=== PATIENT | female | born 1995 | race Caucasian/White ===

== ENCOUNTER 2016-06-28 09:20 | Day surgery (SDC) | payer OTHER ==
[2016-06-28] MEDS ORDERED: LACTATED RINGERS 1,000 ML IV ONE ×2 (09:50→11:02)
[2016-06-28] MEDS ORDERED: BUPIVACAINE 0.5% PF 30 ML VIAL INFIL ONE ×2 (10:24)
[2016-06-28] MEDS ORDERED: DEXAMETHASONE 4 MG/ML VIAL IVP ONE (10:25)
[2016-06-28] MEDS ORDERED: MIDAZOLAM 2 MG/2 ML VIAL IVP ONE (10:25)
[2016-06-28] MEDS ORDERED: KETOROLAC 30 MG/ML VIAL IVP ONE (10:25)
[2016-06-28] MEDS ORDERED: LIDOCAINE-MPF 2% 5 ML VIAL IM ONE (10:25)
[2016-06-28] MEDS ORDERED: PROPOFOL 200 MG/20 ML VIAL IVP ONE (10:25)
[2016-06-28] MEDS ORDERED: fentaNYL 100 MCG/2 ML VIAL IVP ONE (10:25)
[2016-06-28] MEDS ORDERED: ONDANSETRON 4 MG/2 ML VIAL IVP ONE (10:25)
== END 2016-06-28 09:21 | disposition home or self-care (01) ==
PROC: 0XP70YZ Removal of Other Device from Left Upper Extremity, Open Approach (ICD-10-PCS; principal; 2016-06-28 11:00)
DX: Z30.8 Encounter for other contraceptive management (principal); Z87.891 Personal history of nicotine dependence; Z82.49 Family history of ischemic heart disease and other diseases of the circulatory system
CPT/HCPCS: 11982; 81025; J7120

== ENCOUNTER 2016-12-21 15:59 | Emergency (ER) | payer SELFPAY ==
[2016-12-21 16:11] VITALS: BP 143/89
[2016-12-21] MEDS ORDERED: oxyCOD/ACETAMIN 5 MG/325 MG TABLET PO STA (17:09)
[2016-12-21] MEDS ORDERED: ACYCLOVIR 200 MG CAPSULE PO STA (17:09)
[2016-12-21] MEDS ORDERED: ACYCLOVIR 200 MG CAPSULE PO ONE (17:15)
[2016-12-21] MEDS ORDERED: oxyCOD/ACETAMIN 5 MG/325 MG TABLET PO ONE (17:15)
--- NOTE | 2016-12-21 17:54 | ED Physician Documentation ---
History of Present Illness - Stated complaint Stated Complaint: LT SHOULDER PX - Chief complaint Chief Complaint: Ext Problem - History obtained from History obtained from: Patient - Additonal information Additional information: The patient is a 21-year-old female who presents with pain posterior aspect of her left shoulder, across the back from her spine, to the lateral chest wall. She denies any traumatic injury. She denies chest pain, cough, or shortness of breath. She is right-hand dominant. She denies any history of similar symptoms in the past. Review of Systems Constitutional: denies: Fever Nose: denies: Congestion Throat: denies: Sore throat Cardiac: denies: Chest pain / pressure, Palpitations Respiratory: denies: Dyspnea, Cough GI: denies: Abdominal Pain, Nausea, Vomiting : denies: Dysuria Skin: denies: Rash Musculoskeletal: reports: Back pain (At the base of the left scapula.). denies : Neck pain Neurologic: denies: Focal weakness, Numbness, Headache PD PAST MEDICAL HISTORY - Past Medical History Past Medical History: Yes Respiratory: None Endocrine/Autoimmune: None GI: None : None HEENT: Other Psych: Depression, Anxiety Musculoskeletal: None - Past Surgical History Past Surgical History: Yes General: Other HEENT: Other - Present Medications Home Medications: Ambulatory Orders Medication Instructions Recorded Confirmed Sertraline [Zoloft] 50 mg PO DAILY 12/10/15 12/21/16 Ibuprofen 800 mg PO PRN PRN 06/26/16 12/21/16 Acyclovir 200 mg PO 5XD #50 capsule 12/21/16 Clonazepam 1 tab PO TID 12/21/16 12/21/16 oxyCODONE/ACET 5/325 [Percocet 5 1 - 2 tab PO Q4-6H PRN #20 tablet 12/21/16 mg/325 mg] - Allergies Allergies/Adverse Reactions: Allergies Allergy/AdvReac Type Severity Reaction Status Date / Time Penicillins Allergy Mild Unknown Verified 12/21/16 16:11 Sulfa (Sulfonamide Allergy Mild Unknown Verified 12/21/16 16:11 Antibiotics) buspirone Allergy Unknown Verified 12/21/16 16:11 cephalexin monohydrate * Allergy Hives Verified 12/21/16 16:11 [From Keflex] - Social History Does the pt smoke?: No Smoking Status: Former smoker Does the pt drink ETOH?: Yes Does the pt have substance abuse?: No - Immunizations Immunizations are current?: Yes - POLST Patient has POLST: No PD ED PE NORMAL - Vitals Vital signs reviewed: Yes (Borderline hypertension.) - General General: Alert and oriented X 3, Well developed/nourished - HEENT HEENT: Atraumatic, EOMI, Moist mucous membranes, Pharynx benign - Neck Neck: Supple, no meningeal sign, No adenopathy, No JVD - Cardiac Cardiac: RRR, No murmur - Respiratory Respiratory: No respiratory distress, Clear bilaterally - Abdomen Abdomen: Soft, Non tender - Back Back: No CVA TTP, No spinal TTP, Other (There is tenderness to palpation in the left mid thoracic dermatome at the base of the left scapula, in a dermatomal pattern from the spine to the lateral thorax. No rash or ecchymosis is detected.) - Derm Derm: No rash - Extremities Extremities: No deformity, Other (Full range of motion of the left shoulder. There is tenderness with superficial palpation as described above. There is no bony tenderness to palpation.) - Neuro Neuro: Alert and oriented X 3, No motor deficit, No sensory deficit Results - Vitals Vitals: Vital Signs - 24 hr 12/21/16 16:08 Temperature 36.3 C L Heart Rate 82 Respiratory 18 Rate Blood Pressure 143/89 H O2 Saturation 99 Oxygen O2 Source Room air PD MEDICAL DECISION MAKING - ED course Complexity details: considered differential, d/w patient, d/w family ED course: The patient's presentation is most suggestive of shingles, however she does not have any rash at this time. Neuralgia is a possibility. Her exam is unusual for muscle strain, and there is no evidence of bony injury. Her symptoms are not suggestive of pulmonary etiology. Treatment in the emergency department included administration of acyclovir 200 mg orally and Percocet 1 tablet orally. She is being discharged with prescriptions for both. I discussed with her and her male pharmacy intake coordinator the likely diagnosis and expected course of illness, symptomatic treatment and outpatient follow-up, as well as potentially worrisome signs or symptoms that should prompt reevaluation in the emergency department. Departure - Departure Disposition: 01 Home, Self Care Clinical Impression: Pain of upper extremity Qualifiers: Laterality: left Qualified Code(s): M79.602 - Pain in left arm Shingles Qualifiers: Herpes zoster complications: unspecified herpes zoster complication Qualified Code(s): B02.8 - Zoster with other complications Condition: Stable Instructions: ED Acute Pain [facility], ED Shingles Follow-Up: Itz Osullivan MD [Primary Care Provider] - Prescriptions: Acyclovir 200 mg PO 5XD #50 capsule oxyCODONE/ACET 5/325 [Percocet 5 mg/325 mg] 1 - 2 tab PO Q4-6H PRN #20 tablet PRN Reason: Pain Comments: Take acyclovir 5 times daily as prescribed. You can use Percocet as prescribed if needed for pain. Follow-up with your primary physician within 1 week. Call to schedule appointment. Return to the emergency department if you develop increasing pain despite the pain medication, or otherwise worsening symptoms. Discharge Date/Time: 12/21/16 18:00
== END 2016-12-21 18:00 | disposition home or self-care (01) ==
LOC: ED 15:59
DX: B02.9 Zoster without complications (principal); M25.512 Pain in left shoulder; Z87.891 Personal history of nicotine dependence
CPT/HCPCS: 99283; A9270

== ENCOUNTER 2017-01-06 18:26 | Emergency (ER) | payer OTHER ==
[2017-01-06 18:34] VITALS: BP 104/69
--- NOTE | 2017-01-06 19:13 | ED Physician Documentation ---
History of Present Illness - Stated complaint Stated Complaint: ALLERGIC REACTION - Chief complaint Chief Complaint: Allergic Rx - History obtained from History obtained from: Patient - Additonal information Additional information: Went into the room to find the patient. She had apparently eloped from the emergency department. Waited approximately 30 minutes with no return of the patient. PD PAST MEDICAL HISTORY - Past Medical History Respiratory: None Endocrine/Autoimmune: None GI: None : None HEENT: Other Psych: Depression, Anxiety Musculoskeletal: None - Past Surgical History Past Surgical History: Yes General: Other HEENT: Other - Present Medications Home Medications: Ambulatory Orders Medication Instructions Recorded Confirmed Sertraline [Zoloft] 50 mg PO DAILY 12/10/15 12/21/16 Acyclovir 200 mg PO 5XD #50 capsule 12/21/16 Clonazepam 1 tab PO TID 12/21/16 12/21/16 Levonorgestrel-Ethin Estradiol 1 tab PO DAILY 01/06/17 01/06/17 [Lutera-28 Tablet] - Allergies Allergies/Adverse Reactions: Allergies Allergy/AdvReac Type Severity Reaction Status Date / Time Penicillins Allergy Mild Unknown Verified 12/21/16 16:11 Sulfa (Sulfonamide Allergy Mild Unknown Verified 12/21/16 16:11 Antibiotics) buspirone Allergy Unknown Verified 12/21/16 16:11 cephalexin monohydrate * Allergy Hives Verified 12/21/16 16:11 [From Keflex] - Social History Does the pt smoke?: No Smoking Status: Never smoker Does the pt drink ETOH?: Yes Does the pt have substance abuse?: No - Immunizations Immunizations are current?: Yes - POLST Patient has POLST: No Results - Vitals Vitals: Vital Signs - 24 hr 01/06/17 18:30 Temperature 36.3 C L Heart Rate 62 Respiratory 16 Rate Blood Pressure 104/69 O2 Saturation 99 Oxygen O2 Source Room air Departure - Departure Disposition: ED Left Without Being Seen Discharge Date/Time: 01/06/17 19:34
== END 2017-01-06 19:34 | disposition left against medical advice (07) ==
LOC: ED 18:26
DX: Z53.21 Procedure and treatment not carried out due to patient leaving prior to being seen by health care provider (principal)

== ENCOUNTER 2017-04-19 11:37 | Outpatient (CLI) | payer OTHER ==
[2017-04-19 12:25] LABS: ALBUMIN 4.1 g/dL (3.2-5.5); ALBUMIN/GLOBULIN RATIO 1.2 (1.0-2.2); BILIRUBIN,TOTAL 0.2 mg/dL (0.2-1.0); CREATININE 0.6 mg/dL (0.4-1.0); TOTAL PROTEIN 7.4 g/dL (6.7-8.2)
[2017-04-19 12:41] LABS: T4 (THYROXINE) 5.98 ug/dL (6.09-12.23)
[2017-04-19 12:43] LABS: THYROID STIMULATING HORMONE 1.73 uIU/mL (0.34-5.60)
[2017-04-19 12:45] LABS: FREE T4 (FREE THYROXINE) 0.77 ng/dL (0.58-1.64)
[2017-04-19 12:51] LABS: BASOPHILS % (AUTO) 0.5 %; EOSINOPHILS # (AUTO) 0.1 10^3/uL (0.0-0.7); EOSINOPHILS % (AUTO) 1.8 %; HGB - HEMOGLOBIN 13.2 g/dL (12.0-16.0); LYMPHOCYTES # (AUTO) 1.8 10^3/uL (1.5-3.5); LYMPHOCYTES % (AUTO) 30.1 %; MEAN CORPUSCULAR HEMOGLOBIN 27.2 pg (27.0-31.0); MEAN CORPUSCULAR HGB CONC 32.6 g/dL (32.0-36.0); MEAN CORPUSCULAR VOLUME 83.3 fL (81.0-99.0); MEAN PLATELET VOLUME 9.7 fL (7.9-10.8); MONOCYTES # (AUTO) 0.3 10^3/uL (0.0-1.0); MONOCYTES % (AUTO) 5.4 %; NEUTROPHILS # (AUTO) 3.8 10^3/uL (1.5-6.6); NEUTROPHILS % (AUTO) 62.2 %; PLT - PLATELET COUNT 247 10^3/uL (130-450); RED BLOOD COUNT 4.87 10^6/uL (4.20-5.40); RED CELL DISTRIBUTION WIDTH 12.6 % (12.0-15.0); WHITE BLOOD COUNT 6.1 x10^3/uL (4.8-10.8)
[2017-04-19 13:16] LABS: HB2 TOTAL 14.2 g/dL; HEMOGLOBIN A1C 0.5 g/dL; HEMOGLOBIN A1C % 5.4 % (4.6-6.2)
[2017-04-19 13:21] LABS: FERRITIN 31.8 ng/mL (11.0-306.8)
[2017-04-23 11:12] LABS: THYROID PEROXIDASE ANTIBODIES 1 IU/mL (<9)
== END 2017-04-19 11:38 | disposition home or self-care (01) ==
LOC: LAB 11:37
PROVIDERS: ATTEND Registered Nurse
DX: F41.1 Generalized anxiety disorder (principal); F33.1 Major depressive disorder, recurrent, moderate
CPT/HCPCS: 36415; 80053; 81291; 81599; 82607; 82728; 83036; 83090; 84436; 84439; 84443; 84481; 85025; 86376; 86800

== ENCOUNTER 2017-05-05 05:45 | Emergency (ER) | payer OTHER ==
[2017-05-05 05:52] VITALS: BP 111/63
[2017-05-05] MEDS ORDERED: ACETAMINOPHEN 500 MG TABLET PO STA (06:02)
[2017-05-05] MEDS ORDERED: IBUPROFEN 600 MG TABLET PO STA (06:02)
--- NOTE | 2017-05-05 06:05 | ED Physician Documentation ---
PD HPI HEENT - Stated complaint Stated Complaint: TOOTH PAIN - Chief complaint Chief Complaint: Heent - History obtained from History obtained from: Patient - History of Present Illness Timing - onset: Yesterday Timing - details: Gradual onset, Still present Location: Tooth Improves: Medication Associated symptoms: No: Fever, Congestion, Unable to swallow Similar symptoms before: Work up / diagnostics, Treatment Recently seen: Not recently seen - Additional information Additional information: Patient is a 22 year old female with a history of multiple crowns who is presenting to the emergency department for tooth pain. patient states that it started last night. Patient took a motrin but she woke up this morning and was still in pain. Patient reports that her dentist stated that he should have done a root canal on the affected tooth but he never did, he just put a crown over it. Review of Systems Eyes: denies: Decreased vision, Photophobia Ears: reports: Ear pain Nose: denies: Rhinorrhea / runny nose, Congestion, Sinus pressure / pain Throat: reports: Dental pain / toothache. denies: Sore throat Cardiac: denies: Chest pain / pressure Respiratory: denies: Dyspnea, Cough GI: denies: Nausea, Vomiting : reports: Reviewed and negative Skin: reports: Reviewed and negative Musculoskeletal: reports: Reviewed and negative Neurologic: reports: Reviewed and negative. denies: Headache Psychiatric: reports: Anxiety Immunocompromised: denies: Immunocompromised PD PAST MEDICAL HISTORY - Past Medical History Respiratory: None Endocrine/Autoimmune: None GI: None : None HEENT: Other Psych: Depression, Anxiety Musculoskeletal: None - Past Surgical History Past Surgical History: Yes General: Other HEENT: Other - Present Medications Home Medications: Ambulatory Orders Medication Instructions Recorded Confirmed Sertraline [Zoloft] 50 mg PO DAILY 12/10/15 12/21/16 clonazePAM [Clonazepam] 1 tab PO TID 12/21/16 12/21/16 Fluoxetine HCl [Prozac] 20 mg PO DAILY 05/05/17 05/05/17 - Allergies Allergies/Adverse Reactions: Allergies Allergy/AdvReac Type Severity Reaction Status Date / Time Penicillins Allergy Mild Unknown Verified 05/05/17 05:52 Sulfa (Sulfonamide Allergy Mild Unknown Verified 05/05/17 05:52 Antibiotics) buspirone Allergy Unknown Verified 05/05/17 05:52 cephalexin monohydrate * Allergy Hives Verified 05/05/17 05:52 [From Keflex] - Social History Does the pt smoke?: No Smoking Status: Never smoker Does the pt drink ETOH?: Yes Does the pt have substance abuse?: No - Immunizations Immunizations are current?: Yes - POLST Patient has POLST: No PD ED PE NORMAL - Vitals Vital signs reviewed: Yes - General General: Alert and oriented X 3 - HEENT HEENT: Atraumatic, PERRL, Moist mucous membranes, Pharynx benign - Neck Neck: Supple, no meningeal sign, No JVD - Cardiac Cardiac: RRR - Respiratory Respiratory: No respiratory distress - Abdomen Abdomen: Non distended - Derm Derm: Normal color, Warm and dry - Extremities Extremities: No deformity - Neuro Neuro: Alert and oriented X 3, No motor deficit, Normal speech - Psych Psych: Normal mood PD ED PE EXPANDED - HEENT HEENT: Dental TTP. No: Dental trauma, Dental abscess Results - Vitals Vitals: Vital Signs - 24 hr 05/05/17 05:49 Temperature 36.4 C L Heart Rate 62 Respiratory 16 Rate Blood Pressure 111/63 O2 Saturation 100 Oxygen O2 Source Room air PD MEDICAL DECISION MAKING - ED course Complexity details: reviewed old records, reviewed results, re-evaluated patient , considered differential, d/w patient ED course: patient was seen and examined at bedside. Patient was well appearing. physical exam revealed no abscess or fluid collection. Patient was treated with motrin and tylenol as needed for pain. patient was stable for discharge with outpatient follow up. Departure - Departure Disposition: 01 Home, Self Care Clinical Impression: Pain, dental Condition: Good Instructions: ED Tooth Pain Follow-Up: primary,dentist [Other] Comments: there was no sign of acute infection today. You will need to follow up with your dentist as you may need a root canal. You should take motrin (600mg) and tylenol (1000mg) as needed for pain. You should follow up with your doctor if your symptoms persist.
== END 2017-05-05 06:12 | disposition home or self-care (01) ==
LOC: ED 05:45
DX: K08.89 Other specified disorders of teeth and supporting structures (principal)
CPT/HCPCS: 99282; 99283; A9270

== ENCOUNTER 2017-07-31 09:26 | Outpatient (CLI) | payer OTHER ==
[2017-07-31 11:36] LABS: THYROID STIMULATING HORMONE 1.57 uIU/mL (0.34-5.60)
[2017-07-31 11:42] LABS: PROLACTIN 9.24 ng/mL
[2017-07-31 12:03] LABS: FOLLICLE STIMULATING HORMONE 7.56 mIU/mL
[2017-07-31 12:04] LABS: LUTEINIZING HORMONE 11.1 mIU/mL
== END 2017-07-31 09:27 | disposition home or self-care (01) ==
LOC: LAB 09:26
PROVIDERS: ATTEND Physician Assistant
DX: N92.6 Irregular menstruation, unspecified (principal); L68.0 Hirsutism; R63.5 Abnormal weight gain
CPT/HCPCS: 36415; 81599; 82533; 83001; 83002; 84146; 84402; 84403; 84443

== ENCOUNTER 2017-08-08 17:01 | Outpatient (CLI) | payer OTHER ==
--- NOTE | 2017-08-09 10:01 | Ultrasound Report ---
PELVIC ULTRASOUND: 08/08/2017 COMPARISON: No comparison. INDICATION: Irregular periods. TECHNIQUE: Transabdominal pelvic ultrasound performed for global evaluation. Endovaginal pelvic ultrasound performed for detailed evaluation. Real-time scanning performed and static images obtained. FINDINGS: The uterus is retroverted. The uterus appears normal, without masses. The endometrial complex measures 9 mm. There is no free fluid. The ovaries have a normal appearance without cysts or masses. Normal appearing bilateral ovarian blood flow. Right ovary 4.0 x 2.9 x 2.8 cm, volume 17 mL. Left ovary 4.1 x 3.0 x 2.6 cm. Volume 17 mL. IMPRESSION: NEGATIVE PELVIS ULTRASOUND. TD: 08/09/2017 10:00 [facility]
== END 2017-08-08 17:02 | disposition home or self-care (01) ==
LOC: DI 17:01
PROVIDERS: ATTEND Physician Assistant
DX: N92.6 Irregular menstruation, unspecified (principal)
CPT/HCPCS: 76830; 76856

== ENCOUNTER 2017-10-04 10:03 | Outpatient (CLI) | payer OTHER | END 2017-10-04 10:04 | disposition home or self-care (01) | LOC: NS 10:03 | PROVIDERS: ATTEND Family Medicine | DX: Z71.3 Dietary counseling and surveillance (principal); E66.9 Obesity, unspecified; E28.2 Polycystic ovarian syndrome; Z68.39 Body mass index [BMI] 39.0-39.9, adult | CPT/HCPCS: 97802 ==

== ENCOUNTER 2017-10-14 11:43 | Emergency (ER) | payer OTHER ==
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
[2017-10-14] MEDS ORDERED: HYDROcod/ACETAM 5/325 MG TABLET PO STA (12:33)
[2017-10-14] MEDS ORDERED: CYCLOBENZAPRINE 10 MG TABLET PO STA (12:33)
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
[2017-10-14 13:53] VITALS: BP 138/93
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
== END 2017-10-14 15:17 | disposition home or self-care (01) ==
LOC: ED 11:43
DX: S16.1XXA Strain of muscle, fascia and tendon at neck level, initial encounter (principal); R03.0 Elevated blood-pressure reading, without diagnosis of hypertension; V59.50XA Passenger in pick-up truck or van injured in collision with unspecified motor vehicles in traffic accident, initial encounter; Y92.410 Unspecified street and highway as the place of occurrence of the external cause
CPT/HCPCS: 72125; 99283; A9270

== ENCOUNTER 2018-01-16 13:07 | Emergency (ER) | payer OTHER ==
[2018-01-16 13:34] VITALS: BP 149/82
[2018-01-16] MEDS ORDERED: DEXAMETHASONE 10 MG/ML VIAL PO STA (13:55)
--- NOTE | 2018-01-16 13:58 | ED Physician Documentation ---
PD HPI URI - Stated complaint Stated Complaint: FEVER - Chief complaint Chief Complaint: Resp - History obtained from History obtained from: Patient - History of Present Illness Timing - onset: How many days ago (3) Timing duration: Days (3) Timing details: Gradual onset, Still present Associated symptoms: Fever, Chills, Nasal congestion, Rhinorrhea, Sinus pain, Dry cough Contributing factors: Sick contact Improves by: Rest, Medication Similar symptoms before: Diagnosis (pneumonia sinusitis) Recently seen: Not recently seen - Additional information Additional information: Previously well 22-year-old female with a history of prior pneumonia has developed cough and congestion over the past 3 days and she is now developed fever as well. She was asked to stay home from work and today her fever spiked to 104 and she is come to the emergency department. She is coughing up some phlegm and she has pain in her sinuses as well. She has allergies to multiple antibiotics and reports that she improved with the use of azithromycin when she had pneumonia. Review of Systems Constitutional: reports: Fever, Chills, Myalgias, Fatigue, Sweats Eyes: denies: Decreased vision Ears: denies: Ear pain Nose: reports: Rhinorrhea / runny nose, Congestion Throat: reports: Sore throat Cardiac: denies: Chest pain / pressure, Palpitations Respiratory: reports: Cough. 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 Psych: Depression, Anxiety Musculoskeletal: None Other Past Medical History: polycystic ovarian syndrome, insulin resistance - Past Surgical History Past Surgical History: Yes General: Other HEENT: Other - Present Medications Home Medications: Ambulatory Orders Medication Instructions Recorded Confirmed clonazePAM [Clonazepam] 1 tab PO TID 12/21/16 12/21/16 Fluoxetine HCl [Prozac] 20 mg PO DAILY 05/05/17 05/05/17 metFORMIN [Glucophage] 500 mg TID 10/14/17 10/14/17 Azithromycin [Zithromax] 250 mg PO DAILY #6 tablet 01/16/18 - Allergies Allergies/Adverse Reactions: Allergies Allergy/AdvReac Type Severity Reaction Status Date / Time Penicillins Allergy Mild Unknown Verified 01/16/18 13:33 Sulfa (Sulfonamide Allergy Mild Unknown Verified 10/17/18 13:33 Antibiotics) buspirone Allergy Unknown Verified 01/16/18 13:33 cephalexin monohydrate * Allergy Hives Verified 01/16/18 13:33 [From [employer]] - Social History Does the pt smoke?: Yes Smoking Status: Current some day smoker Does the pt drink ETOH?: Yes ETOH Use: Beer Does the pt have substance abuse?: No - Immunizations Immunizations are current?: Yes - POLST Patient has POLST: No PD ED PE NORMAL - Vitals Vital signs reviewed: Yes (tachy and hypertensive ) - General General: Alert and oriented X 3, No acute distress, Well developed/nourished - HEENT HEENT: Atraumatic, PERRL, EOMI, Pharynx benign, Other (Both TM's are erythematous along a flattened umbo. There is maxillary sinus point tenderness bilaterally as well. 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, No motor deficit, No sensory deficit, Normal speech Eye Opening: Spontaneous Motor: Obeys Commands Verbal: Oriented GCS Score: 15 - Psych Psych: Normal mood, Normal affect Results - Vitals Vitals: Vital Signs - 24 hr 01/16/18 13:32 Temperature 37.0 C Heart Rate 113 H Respiratory 18 Rate Blood Pressure 149/82 H O2 Saturation 96 Oxygen O2 Source Room air PD MEDICAL DECISION MAKING - ED course Complexity details: reviewed old records, reviewed results, re-evaluated patient, considered differential, d/w patient ED course: 22-year-old female with a history of cough and congestion has sinus point tenderness and bilateral otitis on examination. She is diagnosed with otitis media and sinusitis and she is given a dose of dexamethasone orally we will place her on some azithromycin. Today I felt her lungs were clear to examination. Departure - Departure Disposition: 01 Home, Self Care Clinical Impression: Sinusitis Qualifiers: Sinusitis location: maxillary Chronicity: acute Recurrence: not specified as recurrent Qualified Code(s): J01.00 - Acute maxillary sinusitis, unspecified Otitis media Qualifiers: Otitis media type: suppurative Chronicity: acute Laterality: bilateral Recurrence: not specified as recurrent Spontaneous tympanic membrane rupture: without spontaneous rupture Qualified Code(s): H66.003 - Acute suppurative otitis media without spontaneous rupture of ear drum, bilateral Condition: Stable Instructions: ED Otitis Media Acute Adult, ED Sinusitis Abx Tx Follow-Up: Itz Osullivan MD [Primary Care Provider] - Prescriptions: Azithromycin [Zithromax] 250 mg PO DAILY #6 tablet Forms: Activity restrictions
[2018-01-16] MEDS ORDERED: CHERRY SYRUP 10 ML UDC PO ONE (13:59)
== END 2018-01-16 14:05 | disposition home or self-care (01) ==
LOC: ED 13:07
DX: J01.00 Acute maxillary sinusitis, unspecified (principal); H66.003 Acute suppurative otitis media without spontaneous rupture of ear drum, bilateral; F17.200 Nicotine dependence, unspecified, uncomplicated
CPT/HCPCS: 99283; A9270

== ENCOUNTER 2018-10-11 18:34 | Emergency (ER) | payer MEDICAID, OTHER ==
[2018-10-11] MEDS ORDERED: carBAMazepine 200 MG TABLET PO STA (19:13)
--- NOTE | 2018-10-11 19:40 | ED Physician Documentation ---
History of Present Illness - Stated complaint Stated Complaint: EYE FLASHES/NUMB IN LT ARM - Chief complaint Chief Complaint: Neuro - History obtained from History obtained from: Patient, Family - History of Present Illness Timing: Other (several months) Pain level max: 2 Pain level now: 2 - Additonal information Additional information: 23-year-old female who complains of "zingers" in her face and left hand. She states that these occur when she moves her eyes to the left. She states that they last for a few seconds at a time. No fevers. No nausea or vomiting. No neck or back pain. No trauma. States that she has seen her doctor for this in the past and told that she is having "panic attacks". She states that this does not feel like her normal anxiety. Nothing makes it better. 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 Psych: Depression, Anxiety Musculoskeletal: None - Past Surgical History Past Surgical History: Yes General: Other HEENT: Other - Present Medications Home Medications: Ambulatory Orders Medication Instructions Recorded Confirmed clonazePAM [Clonazepam] 1 tab PO TID 12/21/16 12/21/16 Fluoxetine HCl [Prozac] 20 mg PO DAILY 05/05/17 05/05/17 metFORMIN [Glucophage] 500 mg TID 10/14/17 10/14/17 Azithromycin [Zithromax] 250 mg PO DAILY #6 tablet 01/16/18 carBAMazepine [TEGretol] 200 mg PO BID #14 tablet 10/11/18 - Allergies Allergies/Adverse Reactions: Allergies Allergy/AdvReac Type Severity Reaction Status Date / Time Penicillins Allergy Mild Unknown Verified 10/11/18 18:41 Sulfa (Sulfonamide Allergy Mild Unknown Verified 10/11/18 18:41 Antibiotics) buspirone Allergy Unknown Verified 10/11/18 18:41 cephalexin monohydrate * Allergy Hives Verified 10/11/18 18:41 [From [facility]] - Social History Does the pt smoke?: Yes Smoking Status: Current every day smoker Does the pt drink ETOH?: Yes Does the pt have substance abuse?: No - Immunizations Immunizations are current?: Yes - POLST Patient has POLST: No PD ED PE NORMAL - Vitals Vital signs reviewed: Yes - General General: Alert and oriented X 3, No acute distress, Well developed/nourished - HEENT HEENT: PERRL, Ears normal, Moist mucous membranes, Pharynx benign - Neck Neck: Supple, no meningeal sign, No bony TTP - Cardiac Cardiac: RRR, Strong equal pulses - Respiratory Respiratory: No respiratory distress, Clear bilaterally - Abdomen Abdomen: Soft, Non tender, Non distended - Derm Derm: Warm and dry, No rash - Neuro Neuro: Alert and oriented X 3, 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 Possible trigeminal neuralgia? We will trial her on Tegretol and see how she progresses. She is well-appearing, nontoxic. Afebrile. Normal skin. No evidence of infection. Patient counseled regarding signs and symptoms for which I believe and urgent re-evaluation would be necessary. Patient with good understanding of and agreement to plan and is comfortable going home at this time This document was made in part using voice recognition software. While efforts are made to proofread this document, sound alike and grammatical errors may occur. Departure - Departure Disposition: 01 Home, Self Care Clinical Impression: Trigeminal neuralgia Condition: Good Instructions: ED Neuralgia Trigeminal Follow-Up: Itz Osullivan MD [Primary Care Provider] - Within 1 week Prescriptions: carBAMazepine [TEGretol] 200 mg PO BID #14 tablet Comments: You may be suffering from trigeminal neuralgia. We will trial you on the Tegretol for a week and see if this improves your symptoms. Return if you worsen Discharge Date/Time: 10/11/18 19:47
[2018-10-11 19:57] VITALS: BP 137/86
== END 2018-10-11 19:47 | disposition home or self-care (01) ==
LOC: ED 18:34
DX: G50.0 Trigeminal neuralgia (principal); F17.200 Nicotine dependence, unspecified, uncomplicated
CPT/HCPCS: 99282; 99284; A9270

== ENCOUNTER 2018-11-16 18:52 | Emergency (ER) | payer MEDICAID ==
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
[2018-11-16] MEDS ORDERED: IBUPROFEN 600 MG TABLET PO STA (19:42)
[2018-11-16] MEDS ORDERED: ACETAMINOPHEN 325 MG TABLET PO STA (19:42)
[2018-11-16] MEDS ORDERED: LIDOCAINE-EPINEPH-TETRACAINE 3 ML SYRINGE TOP STA (19:42)
[2018-11-16 21:31] VITALS: BP 136/118
== END 2018-11-16 22:06 | disposition home or self-care (01) ==
LOC: ED 18:52
DX: S01.412A Laceration without foreign body of left cheek and temporomandibular area, initial encounter (principal); S01.81XA Laceration without foreign body of other part of head, initial encounter; W01.110A Fall on same level from slipping, tripping and stumbling with subsequent striking against sharp glass, initial encounter; Y93.01 Activity, walking, marching and hiking; F10.920 Alcohol use, unspecified with intoxication, uncomplicated; F17.200 Nicotine dependence, unspecified, uncomplicated
CPT/HCPCS: 12014; 99282; A9270

== ENCOUNTER 2020-06-08 04:00 | Emergency (ER) | payer MEDICAID ==
--- NOTE | 2020-06-08 04:11 | ED Physician Documentation ---
PD HPI LOWER EXT INJURY - Stated complaint Stated Complaint: GLF - Chief complaint Chief Complaint: Trauma Ext - History obtained from History obtained from: Patient - History of Present Illness PD HPI LOW EXT INJURY LOCATION: Right, Ankle Type of injury: Twist Where injury occurred: Home Timing - onset: How many hours ago (1) Timing - details: Abrupt onset Pain level now: 6 Improved by: Rest Worsened by: Moving, Palpating Associated symptoms: Swelling. 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 was walking to her bathroom when she tripped on rug, causing right ankle to twist; she experienced sudden onset right ankle pain and has not been able to bear weight since the injury due to exacerbation of pain with attempts to do so Review of Systems Musculoskeletal: reports: Joint pain (right ankle), Joint swelling, Pain with weight bearing Neurologic: denies: Focal weakness, Numbness PD PAST MEDICAL HISTORY - Past Medical History Respiratory: Pneumonia Endocrine/Autoimmune: None, Other GI: None 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 Psych: Depression, Anxiety Musculoskeletal: None - Past Surgical History Past Surgical History: Yes General: Other HEENT: Other - Present Medications Home Medications: Ambulatory Orders Medication Instructions Recorded Confirmed clonazePAM [Clonazepam] 1 tab PO TID 12/21/16 06/08/20 metFORMIN [Glucophage] 500 mg PO TID 10/14/17 06/08/20 Oxycodone HCl/Acetaminophen 1 - 2 each PO Q6H PRN #12 tablet 06/08/20 [Percocet 5-325 mg Tablet] Sertraline HCl 100 mg PO DAILY 06/08/20 06/08/20 - Allergies Allergies/Adverse Reactions: Allergies Allergy/AdvReac Type Severity Reaction Status Date / Time Penicillins Allergy Mild Unknown Verified 06/08/20 04:14 Sulfa (Sulfonamide Allergy Mild Unknown Verified 06/08/20 04:14 Antibiotics) buspirone Allergy Unknown Verified 06/08/20 04:14 cephalexin monohydrate * Allergy Hives Verified 06/08/20 04:14 [From Keflex] - Social History Does the pt smoke?: Yes Smoking Status: Current every day smoker Does the pt drink ETOH?: Yes Does the pt have substance abuse?: No - Immunizations Immunizations are current?: Yes - POLST Patient has POLST: No PD ED PE NORMAL - Vitals Vital signs reviewed: Yes - General General: Alert and oriented X 3, Well developed/nourished, Other (appears to be in painful distress at times) PD ED PE EXPANDED - Extremities Extremities: Pedal Pulses Present, Sensory intact, Vascular intact, Other (right ankle, lateral malleolus is swollen and TTP. no bony tenderness of foot or lower leg) Feet visual: 1 - swelling, tenderness Results - Vitals Vitals: Vital Signs - 24 hr 06/08/20 06/08/20 04:00 05:48 Temperature 36.0 C L 36.7 C Heart Rate 89 88 Respiratory 18 18 Rate Blood Pressure 135/90 H 122/87 H O2 Saturation 99 98 Oxygen O2 Source Room air - Rads (name of study) right ankle xrays Radiology: Prelim report reviewed, See rad report Procedures - Splint (location) Lower extremity right Splint applied by: Tech Type of splint: Short leg, Posterior Other: Patient tolerated well, No complications, Neurovascular intact, Good alignment, Crutches provided PD MEDICAL DECISION MAKING - ED course Complexity details: reviewed results, re-evaluated patient, considered differential, d/w patient ED course: twisting injury right ankle 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 xrays do not demonstrate acute/emergent findings (such as fracture or dislocation); will treat as ankle sprain with rx analgesic, place splint, provide crutches, and f/u with PMD or orthopedics Departure - Departure Disposition: 01 Home, Self Care Clinical Impression: Ankle sprain Instructions: ED Sprain Ankle W X Ray, ED Crutch Walking, ED Splint Care Fiberglass Follow-Up: Quinten Gardner MD [Provider Admit Priv/Credential] - Prescriptions: Oxycodone HCl/Acetaminophen [Percocet 5-325 mg Tablet] 1 - 2 each PO Q6H PRN #12 tablet PRN Reason: pain Discharge Date/Time: 06/08/20 05:50
[2020-06-08] MEDS ORDERED: oxyCODONE 5 MG TABLET PO STA (04:46)
[2020-06-08 05:50] VITALS: BP 122/87
--- NOTE | 2020-06-08 10:19 | XRAY Report ---
PROCEDURE: Ankle 3 View RT INDICATIONS: twisting injury, ankle pain TECHNIQUE: 3 views of the ankle were acquired. COMPARISON: None FINDINGS: Bones: No fractures or dislocations. Ankle mortise is normally aligned. No suspicious bony lesions . Soft tissues: Soft tissue edema is noted at the ankle. Achilles tendon appears normal. IMPRESSION: No visualized acute fracture or dislocation. However, occult injury cannot be excluded. Recommend short interval imaging follow-up in 7-10 days as clinically indicated for additional evalua tion. The above findings are concordant with preliminary report. Reviewed by: Mame Rojas MD on 06/08/2020 10:18 AM [facility] Approved by: Mame Rojas MD on 06/08/2020 10:18 AM [facility] Station ID: [id number]
== END 2020-06-08 05:50 | disposition home or self-care (01) ==
LOC: ED 04:00
DX: S93.401A Sprain of unspecified ligament of right ankle, initial encounter (principal); W22.8XXA Striking against or struck by other objects, initial encounter; X50.1XXA Overexertion from prolonged static or awkward postures, initial encounter; Y92.002 Bathroom of unspecified non-institutional (private) residence as the place of occurrence of the external cause; F17.200 Nicotine dependence, unspecified, uncomplicated
CPT/HCPCS: 73610; 99283; A9270

== ENCOUNTER 2020-10-11 13:58 | Emergency (ER) | payer MEDICAID ==
--- NOTE | 2020-10-11 14:59 | ED Physician Documentation ---
PD HPI NVD - Stated complaint Stated Complaint: NAUSEA - Chief complaint Chief Complaint: Abd Pain - History obtained from History obtained from: Patient - Additonal information Additional information: Patient comes emergency department complaining of chief complaint of a constant sense of nausea for the last week. Patient states every time she puts food in her mouth she just does not feel like eating at all and spits it out. She states that she thinks that she did swallow the food she would vomit it back up. Patient states she has lost 7 pounds rides through this time is concerned about this. She denies fevers or chills. No abdominal pain. No dysuria or hematuria. Her last menstrual period started on September 06, though patient does have a history of PCOS and has irregular periods. She states that she last had sexual intercourse 1 week ago and she does not feel that there is any other possibility for other than this. Patient denies any history of ulcers. No history of acid reflux, cholecystitis/cholelithiasis. Patient states she has been under a lot of stress recently and that the nausea and lack of appetite began around the same time. Review of Systems Ten Systems: 10 systems reviewed and negative Constitutional: reports: Reviewed and negative Eyes: reports: Reviewed and negative Ears: reports: Reviewed and negative Nose: reports: Reviewed and negative Throat: reports: Reviewed and negative Cardiac: reports: Reviewed and negative Respiratory: reports: Reviewed and negative GI: reports: Nausea. 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 HEENT: Other Psych: Depression, Anxiety Musculoskeletal: None - Past Surgical History Past Surgical History: Yes General: Other HEENT: Other - Present Medications Home Medications: Ambulatory Orders Medication Instructions Recorded Confirmed clonazePAM [Clonazepam] 0.25 mg PO BID 12/21/16 10/11/20 metFORMIN [Glucophage] 500 mg PO BID 10/14/17 10/11/20 Ondansetron Odt [Zofran] 4 mg TL Q6H PRN #10 tablet 10/11/20 - Allergies Allergies/Adverse Reactions: Allergies Allergy/AdvReac Type Severity Reaction Status Date / Time Penicillins Allergy Mild Unknown Verified 10/11/20 14:05 Sulfa (Sulfonamide Allergy Mild Unknown Verified 10/11/20 14:05 Antibiotics) buspirone Allergy Unknown Verified 10/11/20 14:05 cephalexin monohydrate * Allergy Hives Verified 10/11/20 14:05 [From Keflex] - Social History Does the pt smoke?: Yes Smoking Status: Current every day smoker Does the pt drink ETOH?: Yes Does the pt have substance abuse?: No - Immunizations Immunizations are current?: Yes - POLST Patient has POLST: No PD ED PE NORMAL - Vitals Vital signs reviewed: Yes - General General: Alert and oriented X 3, No acute distress, Well developed/nourished - HEENT HEENT: Atraumatic, PERRL, EOMI, Moist mucous membranes - Neck Neck: Supple, no meningeal sign - Cardiac Cardiac: RRR, No murmur, Strong equal pulses - Respiratory Respiratory: No respiratory distress, Clear bilaterally - Abdomen Abdomen: Soft, Non tender, Non distended - Derm Derm: Normal color, Warm and dry, No rash - Extremities Extremities: No deformity, No edema, No calf tenderness / cord - Neuro Neuro: Alert and oriented X 3, 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, No motor deficit, No sensory deficit, Normal speech - Psych Psych: Normal mood, Normal affect Results - Vitals Vitals: Vital Signs - 24 hr 10/11/20 10/11/20 10/11/20 14:07 15:57 16:07 Temperature 37 C 37.1 C 36.9 C Heart Rate 100 91 91 Respiratory 16 16 16 Rate Blood Pressure 141/106 H 144/96 H 134/81 H O2 Saturation 97 94 97 Oxygen O2 Source Room air - Labs Labs: Laboratory Tests 10/11/20 10/11/20 10/11/20 15:05 15:10 15:10 WBC 12.9 H RBC 5.30 Hgb 14.9 Hct 45.2 MCV 85.3 MCH 28.1 MCHC 33.0 RDW 13.0 Plt Count 338 MPV 10.7 Neut # (Auto) 10.3 H Lymph # (Auto) 1.7 [place] # (Auto) 0.7 Eos # (Auto) 0.0 Baso # (Auto) 0.0 Absolute Nucleated RBC 0.00 Nucleated RBC % 0.0 Sodium 136 Potassium 3.9 Chloride 98 L Carbon Dioxide 24 Anion Gap 14.0 H BUN 9 Creatinine 0.8 Estimated GFR (MDRD) 86 L Glucose 99 Calcium 10.3 Total Bilirubin 0.9 AST 23 ALT 28 Alkaline Phosphatase 42 Total Protein 8.1 Albumin 5.0 Globulin 3.1 Albumin/Globulin Ratio 1.6 Lipase 42 Urine Color YELLOW Urine Clarity CLOUDY Urine pH 6.5 Ur Specific [place] 1.020 Urine Protein TRACE Urine Glucose (UA) NEGATIVE Urine Ketones >=80 H Urine Occult Blood TRACE-INTA Urine Nitrite NEGATIVE Urine Bilirubin NEGATIVE Urine Urobilinogen 0.2 (NORMAL) Ur Leukocyte Esterase NEGATIVE Urine RBC 0-5 Urine WBC 6-10 H Ur Squamous Epith Cells MANY Squamous H Urine Bacteria Many H Urine Mucus Marked Strands Ur Microscopic Review INDICATED Urine Culture Comments NOT INDICATED Urine HCG, Qual NEGATIVE PD MEDICAL DECISION MAKING - ED course Complexity details: reviewed results, re-evaluated patient, considered differential, d/w patient ED course: Patient was worked up with labs and urinalysis/urinary test, and treated symptomatically with ODT Zofran. The patient's work-up was negative I discussed with her that the next step in evaluation for her ongoing nausea would most likely be a scope which her primary care physician would have to arrange. I discussed the need for follow-up in primary care in the usual indications for return. The patient has been given a prescription for ODT Zofran for at home. Departure - Departure Disposition: 01 Home, Self Care Clinical Impression: Nausea Condition: Stable Instructions: ED Nausea Vomiting Prescriptions: Ondansetron Odt [Zofran] 4 mg TL Q6H PRN #10 tablet PRN Reason: Nausea / Vomiting Comments: Your urinalysis is negative for infection and urine test is also negative. Your labs do not show any evidence of diabetes or other concerning illness. Please follow-up with your primary doctor if you are not better in a week. Take the nausea medicine as needed. Discharge Date/Time: 10/11/20 16:16
[2020-10-11 15:18] LABS: BASOPHILS % (AUTO) 0.3 %; EOSINOPHILS % (AUTO) 0.2 %; HCT - HEMATOCRIT 45.2 % (37.0-47.0); HGB - HEMOGLOBIN 14.9 g/dL (12.0-16.0); LYMPHOCYTES # (AUTO) 1.7 10^3/uL (1.5-3.5); LYMPHOCYTES % (AUTO) 13.2 %; MEAN CORPUSCULAR HEMOGLOBIN 28.1 pg (27.0-31.0); MEAN CORPUSCULAR VOLUME 85.3 fL (81.0-99.0); MEAN PLATELET VOLUME 10.7 fL (7.9-10.8); MONOCYTES # (AUTO) 0.7 10^3/uL (0.0-1.0); MONOCYTES % (AUTO) 5.7 %; NEUTROPHILS # (AUTO) 10.3 10^3/uL (1.5-6.6); NEUTROPHILS % (AUTO) 80.3 %; PLT - PLATELET COUNT 338 10^3/uL (130-450); WHITE BLOOD COUNT 12.9 x10^3/uL (4.8-10.8)
[2020-10-11] MEDS: ONDANSETRON ODT 4 MG TABLET TL STA (15:22)
[2020-10-11 15:30] LABS: ALBUMIN/GLOBULIN RATIO 1.6 (1.0-2.2); BILIRUBIN,TOTAL 0.9 mg/dL (0.2-1.0); CALCIUM 10.3 mg/dL (8.5-10.3); CREATININE 0.8 mg/dL (0.4-1.0); POTASSIUM 3.9 mmol/L (3.5-5.0); TOTAL PROTEIN 8.1 g/dL (6.7-8.2)
[2020-10-11 15:32] LABS: GLUCOSE, URINE (UA) NEGATIVE (NEGATIVE); KETONES,URINE (UA) >=80 mg/dL (NEGATIVE); LEUKOCYTE ESTERASE, URINE NEGATIVE (NEGATIVE); NITRITE,URINE NEGATIVE (NEGATIVE); OCCULT BLOOD,URINE TRACE-INTA (NEGATIVE); PH,URINE 6.5 PH (5.0-7.5); PROTEIN,URINE TRACE mg/dL (NEGATIVE); UROBILINOGEN,URINE 0.2 (NORMAL) E.U./dL (NORMAL)
[2020-10-11 15:34] LABS: BILIRUBIN,URINE NEGATIVE (NEGATIVE); CLARITY,URINE CLOUDY (CLEAR); ICTOTEST,URINE NEGATIVE
[2020-10-11 15:35] LABS: HCG UR QUAL NEGATIVE
[2020-10-11 15:42] LABS: BACTERIA,URINE Many /HPF (None Seen); MUCUS,URINE Marked Strands; RBC,URINE 0-5 /HPF (0-5); SQUAMOUS EPITHELIAL CELL,UR MANY Squamous (<= Few)
[2020-10-11 16:07] VITALS: BP 134/81
== END 2020-10-11 16:16 | disposition home or self-care (01) ==
LOC: ED 13:58
DX: R11.0 Nausea (principal); F17.200 Nicotine dependence, unspecified, uncomplicated
CPT/HCPCS: 36415; 80053; 81001; 81025; 83690; 85025; 99283; 99284; Q0162; 81003; 87086

== ENCOUNTER 2021-04-20 11:07 | Outpatient (CLI) | payer MEDICAID ==
[2021-04-20 18:27] LABS: BASOPHILS % (AUTO) 0.5 %; EOSINOPHILS # (AUTO) 0.1 10^3/uL (0.0-0.7); EOSINOPHILS % (AUTO) 0.9 %; HCT - HEMATOCRIT 48.2 % (37.0-47.0); HGB - HEMOGLOBIN 15.3 g/dL (12.0-16.0); MEAN CORPUSCULAR HEMOGLOBIN 28.7 pg (27.0-31.0); MEAN CORPUSCULAR HGB CONC 31.7 g/dL (32.0-36.0); MEAN CORPUSCULAR VOLUME 90.4 fL (81.0-99.0); MEAN PLATELET VOLUME 11.6 fL (7.9-10.8); MONOCYTES # (AUTO) 0.3 10^3/uL (0.0-1.0); MONOCYTES % (AUTO) 4.3 %; NEUTROPHILS # (AUTO) 5.1 10^3/uL (1.5-6.6); NEUTROPHILS % (AUTO) 78.1 %; PLT - PLATELET COUNT 353 10^3/uL (130-450); RED BLOOD COUNT 5.33 10^6/uL (4.20-5.40); RED CELL DISTRIBUTION WIDTH 13.9 % (12.0-15.0); WHITE BLOOD COUNT 6.5 x10^3/uL (4.8-10.8)
[2021-04-20 18:52] LABS: ALBUMIN 3.7 g/dL (3.2-5.5); ALBUMIN/GLOBULIN RATIO 1.2 (1.0-2.2); BILIRUBIN,TOTAL 0.7 mg/dL (0.2-1.0); CALCIUM 9.5 mg/dL (8.5-10.3); CREATININE 0.6 mg/dL (0.4-1.0); MAGNESIUM 1.8 mg/dL (1.7-2.8); PHOSPHORUS 2.8 mg/dL (2.5-4.6); POTASSIUM 3.7 mmol/L (3.5-5.0); TOTAL PROTEIN 6.8 g/dL (6.7-8.2)
[2021-04-20 18:57] LABS: THYROID STIMULATING HORMONE 1.18 uIU/mL (0.34-5.60)
== END 2021-04-20 23:59 | disposition home or self-care (01) ==
LOC: LAB.WCP 11:07
PROVIDERS: ATTEND Physician Assistant Medical
DX: R00.0 Tachycardia, unspecified (principal)
CPT/HCPCS: 36415; 80053; 83735; 84100; 84443; 85025

== ENCOUNTER 2021-07-11 11:22 | Emergency (ER) | payer MEDICAID ==
[2021-07-11] MEDS ORDERED: HYDROcod/ACETAM 5/325 MG TABLET PO STA (11:42)
--- NOTE | 2021-07-11 11:43 | ED Physician Documentation ---
PD HPI BACK PAIN - Stated complaint Stated Complaint: BACK PX - Chief complaint Chief Complaint: Back Pain - History obtained from History obtained from: Patient - Additional information Additional information: 26-year-old woman with PCOS presents with low back pain starting 3 nights ago. Started on the right low back but subsequently has moved to both sides of the low back. It is worse with bending and twisting and she tried stretching which also made it worse. She denies urinary complaints. She is not on her menses and doubts as her has had a vasectomy. She denies weakness, numbness, tingling, saddle anesthesia, incontinence, or fevers. 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 HEENT: Other Psych: Depression, Anxiety Musculoskeletal: None - Past Surgical History Past Surgical History: Yes General: Other HEENT: Other - Present Medications Home Medications: Ambulatory Orders Medication Instructions Recorded Confirmed clonazePAM [Clonazepam] 0.25 mg PO TID 12/21/16 07/11/21 Ciprofloxacin HCl [Cipro] 500 mg PO BID #20 tablet 07/11/21 HYDROcod/ACETAM 5/325 [Iron 5/325] 1 - 2 tab PO Q6H PRN #15 tablet 07/11/21 - Allergies Allergies/Adverse Reactions: Allergies Allergy/AdvReac Type Severity Reaction Status Date / Time Penicillins Allergy Mild Unknown Verified 07/11/21 11:30 Sulfa (Sulfonamide Allergy Mild Unknown Verified 07/11/21 11:30 Antibiotics) buspirone Allergy Unknown Verified 07/11/21 11:30 cephalexin monohydrate * Allergy Hives Verified 07/11/21 11:30 [From Keflex] - Social History Does the pt smoke?: Yes Smoking Status: Current every day smoker Does the pt drink ETOH?: Yes Does the pt have substance abuse?: No - Immunizations Immunizations are current?: Yes - POLST Patient has POLST: No PD ED PE NORMAL - Vitals Vital signs reviewed: Yes - General General: Alert and oriented X 3, No acute distress - HEENT HEENT: PERRL, EOMI - Cardiac Cardiac: RRR, No murmur - Respiratory Respiratory: No respiratory distress, Clear bilaterally - Abdomen Abdomen: Non tender - Back Back: Other (Some muscular tenderness of the right low back above the sciatic notch, no flank tenderness. No midline spinal tenderness.) - Extremities Extremities: Other (The patient has equal and normal Achilles and patellar reflexes bilaterally. Normal sensation in all areas of the legs. Patient denies saddle anesthesia. Normal strength in flexion-extension at the ankles, knees, and flexion of the hips.) - Neuro Neuro: Alert and oriented X 3, Normal speech Results - Vitals Vitals: Vital Signs - 24 hr 07/11/21 07/11/21 11:27 12:40 Temperature 36.4 C L 36.5 C Heart Rate 106 H 88 Respiratory 16 14 Rate Blood Pressure 142/82 H 120/82 H O2 Saturation 100 100 Oxygen O2 Source Room air - Labs Labs: Laboratory Tests 07/11/21 12:03 Urine Color YELLOW Urine Clarity SL. CLOUDY Urine pH 7.0 Ur Specific [place] 1.020 Urine Protein NEGATIVE Urine Glucose (UA) NEGATIVE Urine Ketones NEGATIVE Urine Occult Blood TRACE-INTA Urine Nitrite POSITIVE H Urine Bilirubin NEGATIVE Urine Urobilinogen 0.2 (NORMAL) Ur Leukocyte Esterase SMALL H Urine RBC 0-5 Urine WBC >25 H Urine WBC [place] PRESENT Ur Epithelial Cells RARE Transitional Ur Squamous Epith Cells FEW Squamous Urine Bacteria Many H Ur Microscopic Review INDICATED Urine Culture Comments INDICATED Urine HCG, Qual NEGATIVE PD MEDICAL DECISION MAKING - ED course ED course: 26-year-old woman with what sounds like musculoskeletal low back pain on the right but given her urinalysis findings this may well be due to pyelonephritis and she is placed on Cipro for same noting multiple medication/antibiotic allergies. Departure - Departure Disposition: 01 Home, Self Care Clinical Impression: Pyelonephritis Back pain Qualifiers: Back pain location: low back pain Chronicity: acute Back pain laterality: right Sciatica presence: without sciatica Qualified Code(s): M54.50 - Low back pain, unspecified Condition: Good Record reviewed to determine appropriate education?: Yes Instructions: Pyelonephritis Dc Prescriptions: Ciprofloxacin HCl [Cipro] 500 mg PO BID #20 tablet HYDROcod/ACETAM 5/325 [Iron 5/325] 1 - 2 tab PO Q6H PRN #15 tablet PRN Reason: Pain Comments: I sent your prescriptions electronically to [facility] pharmacy at the corner of [address] [address] and [facility] here in [place]. We will culture your urine, the results should be done in 48-72 hours. If an antibiotic change is necessary we will call you. Return if worse in the meantime, especially if you develop increasing flank pain, fevers, or cannot keep down the medication. Discharge Date/Time: 07/11/21 12:41
[2021-07-11 12:13] LABS: BILIRUBIN,URINE NEGATIVE (NEGATIVE); GLUCOSE, URINE (UA) NEGATIVE (NEGATIVE); KETONES,URINE (UA) NEGATIVE (NEGATIVE); LEUKOCYTE ESTERASE, URINE SMALL (NEGATIVE); NITRITE,URINE POSITIVE (NEGATIVE); OCCULT BLOOD,URINE TRACE-INTA (NEGATIVE); PROTEIN,URINE NEGATIVE (NEGATIVE); UROBILINOGEN,URINE 0.2 (NORMAL) E.U./dL (NORMAL)
[2021-07-11 12:15] LABS: CLARITY,URINE SL. CLOUDY (CLEAR); HCG UR QUAL NEGATIVE
[2021-07-11 12:25] LABS: RBC,URINE 0-5 /HPF (0-5); SQUAMOUS EPITHELIAL CELL,UR FEW Squamous (<= Few); WBC CLUMPS,URINE PRESENT; WBC,URINE >25 /HPF (0-5)
[2021-07-11 12:26] LABS: BACTERIA,URINE Many /HPF (None Seen); EPITHELIAL CELLS,UR RARE Transitional /HPF (<= Few)
[2021-07-11 12:42] VITALS: BP 120/82
== END 2021-07-11 12:41 | disposition home or self-care (01) ==
LOC: ED 11:22
DX: N12 Tubulo-interstitial nephritis, not specified as acute or chronic (principal); F17.200 Nicotine dependence, unspecified, uncomplicated
CPT/HCPCS: 81001; 81025; 87086; 99283; A9270; 81003; 87181

== ENCOUNTER 2021-07-12 19:12 | Emergency (ER) | payer MEDICAID ==
[2021-07-12] MEDS ORDERED: KETOROLAC 30 MG/ML VIAL IVP STA (19:36)
[2021-07-12] MEDS ORDERED: HYDROmorphone 1 MG/ML CARPUJECT IVP STA (19:36)
[2021-07-12] MEDS ORDERED: SODIUM CHLORIDE 0.9% 1,000 ML IV STA (19:39)
[2021-07-12 19:48] LABS: BASOPHILS # (AUTO) 0.1 10^3/uL (0.0-0.1); BASOPHILS % (AUTO) 0.8 %; EOSINOPHILS % (AUTO) 12.8 %; HCT - HEMATOCRIT 40.7 % (37.0-47.0); HGB - HEMOGLOBIN 13.7 g/dL (12.0-16.0); LYMPHOCYTES # (AUTO) 2.4 10^3/uL (1.5-3.5); LYMPHOCYTES % (AUTO) 30.9 %; MEAN CORPUSCULAR HEMOGLOBIN 32.2 pg (27.0-31.0); MEAN CORPUSCULAR HGB CONC 33.7 g/dL (32.0-36.0); MEAN CORPUSCULAR VOLUME 95.5 fL (81.0-99.0); MEAN PLATELET VOLUME 10.3 fL (7.9-10.8); MONOCYTES # (AUTO) 0.5 10^3/uL (0.0-1.0); MONOCYTES % (AUTO) 6.3 %; NEUTROPHILS # (AUTO) 3.8 10^3/uL (1.5-6.6); NEUTROPHILS % (AUTO) 48.9 %; PLT - PLATELET COUNT 335 10^3/uL (130-450); RED BLOOD COUNT 4.26 10^6/uL (4.20-5.40); RED CELL DISTRIBUTION WIDTH 13.1 % (12.0-15.0); WHITE BLOOD COUNT 7.7 x10^3/uL (4.8-10.8)
[2021-07-12 20:00] LABS: ALBUMIN 3.9 g/dL (3.2-5.5); ALBUMIN/GLOBULIN RATIO 1.2 (1.0-2.2); BILIRUBIN,TOTAL 0.6 mg/dL (0.2-1.0); CALCIUM 9.4 mg/dL (8.5-10.3); CREATININE 0.6 mg/dL (0.4-1.0); POTASSIUM 3.9 mmol/L (3.5-5.0); TOTAL PROTEIN 7.2 g/dL (6.7-8.2)
[2021-07-12] MEDS ORDERED: IOVERSOL 320 100 ML VIAL IVP ONE ×2 (20:07→21:06)
--- NOTE | 2021-07-12 21:08 | CT Report ---
PROCEDURE: Abdomen/Pelvis W INDICATIONS: diffuse flank/back pain, +UA CONTRAST: IV CONTRAST: Optiray 320 ml: 100 PO CONTRAST: *NO PO CONTRAST TECHNIQUE: After the administration of weight appropriate dose of intravenous contrast, 5 mm thick sections acqu ired from the diaphragms to the symphysis. 5 mm thick coronal and sagittal reformats were acquired. For radiation dose reduction, the following was used: automated exposure control, adjustment of mA and/or kV according to patient size. COMPARISON: None. FINDINGS: Image quality: Excellent. ABDOMEN: Lung bases: Lung bases are clear. Heart size is normal. Solid organs: Liver and spleen are normal in size and enhancement. Gallbladder unremarkable Biliar y system is non dilated. Pancreas enhances normally. No adrenal nodules. Kidneys demonstrate lashae l size and enhancement, without hydronephrosis. No perinephric stranding. No perinephric fluid colle ction. Peritoneum and bowel: Bowel loops demonstrate normal wall thickness and caliber. No free fluid or a ir. Normal appendix. Nodes and vessels: No retroperitoneal or mesenteric adenopathy by size criteria. Aorta and inferior vena cava are normal in size. Miscellaneous: No ventral hernias. PELVIS: Genitourinary: Bladder wall thickness is normal. Miscellaneous: No inguinal hernias or adenopathy. Bones: No suspicious bony lesions. No acute vertebral body compression fractures. IMPRESSION: CT abdomen and pelvis without acute abnormalities. Normal CT appearance of the bilateral kidneys. Nor mal appendix. Reviewed by: Jose Maria Santamaria MD on 07/12/2021 9:07 PM PDT Approved by: Jose Maria Santamaria MD on 07/12/2021 9:07 PM PDT Station ID: [id number]
--- NOTE | 2021-07-12 21:27 | ED Physician Documentation ---
History of Present Illness - Stated complaint Stated Complaint: BACK PX - Chief complaint Chief Complaint: Back Pain - History obtained from History obtained from: Patient, Family - History of Present Illness Timing: How many days ago (4) Pain level max: 8 Pain level now: 5 - Additonal information Additional information: Patient is a 26-year-old female who presents to the emergency department complaining of back pain for the past 4 days. She was seen here yesterday and treated with ciprofloxacin for pyelonephritis. She states that she is continuing to have back pain. She is taking 1 Vicodin about every 6 hours. The Vicodin does help, but the pain is still present. No fevers. No chills. Does not recall any injury. No numbness or tingling. No loss of bowel or bladder control. Denies any possibility of . No vaginal bleeding or discharge. No IV drug use. 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 HEENT: Other Psych: Depression, Anxiety Musculoskeletal: None - Past Surgical History Past Surgical History: Yes General: Other HEENT: Other - Present Medications Home Medications: Ambulatory Orders Medication Instructions Recorded Confirmed clonazePAM [Clonazepam] 0.25 mg PO TID 12/21/16 07/12/21 Ciprofloxacin HCl [Cipro] 500 mg PO BID #20 tablet 07/11/21 07/12/21 HYDROcod/ACETAM 5/325 [[place] 5/325] 1 - 2 tab PO Q6H PRN #15 tablet 07/11/21 07/12/21 Norgestimate-Ethinyl Estradiol 1 each PO DAILY 07/12/21 07/12/21 [Sprintec 28 Day Tablet] Oxycodone HCl/Acetaminophen 1 - 2 each PO Q6H PRN #14 tablet 07/12/21 [Percocet 5-325 mg Tablet] - Allergies Allergies/Adverse Reactions: Allergies Allergy/AdvReac Type Severity Reaction Status Date / Time Penicillins Allergy Mild Unknown Verified 07/12/21 19:22 Sulfa (Sulfonamide Allergy Mild Unknown Verified 07/12/21 19:22 Antibiotics) buspirone Allergy Unknown Verified 07/12/21 19:22 cephalexin monohydrate * Allergy Hives Verified 07/12/21 19:22 [From [employer] [place]] - Social History Does the pt smoke?: Yes Smoking Status: Current every day smoker Does the pt drink ETOH?: Yes Does the pt have substance abuse?: No - Immunizations Immunizations are current?: Yes - POLST Patient has POLST: No PD ED PE NORMAL - Vitals Vital signs reviewed: Yes - General General: Alert and oriented X 3, No acute distress - HEENT HEENT: PERRL, Moist mucous membranes - Neck Neck: Supple, no meningeal sign - Cardiac Cardiac: RRR, Strong equal pulses - Respiratory Respiratory: No respiratory distress, Clear bilaterally - Abdomen Abdomen: Soft, Non tender, Non distended - Back Back: No spinal TTP, Other (Right-sided CVA tenderness) - Derm Derm: Warm and dry - Extremities Extremities: No edema, No calf tenderness / cord - Neuro Neuro: Alert and oriented X 3, No motor deficit, No sensory deficit, Other (Normal bilateral lower extremity patellar and ankle jerk reflexes. Normal great toe extension bilaterally. no saddle anesthesia) - Psych Psych: Normal mood, Normal affect Results - Vitals Vitals: Vital Signs - 24 hr 07/12/21 07/12/21 19:15 21:34 Temperature 36.1 C L 36.2 C L Heart Rate 94 94 Respiratory 18 18 Rate Blood Pressure 151/97 H 138/88 H O2 Saturation 100 100 Oxygen O2 Source Room air - Labs Labs: Laboratory Tests 07/12/21 07/12/21 19:42 19:42 WBC 7.7 RBC 4.26 Hgb 13.7 Hct 40.7 MCV 95.5 MCH 32.2 H MCHC 33.7 RDW 13.1 Plt Count 335 MPV 10.3 Neut # (Auto) 3.8 Lymph # (Auto) 2.4 [place] # (Auto) 0.5 Eos # (Auto) 1.0 H Baso # (Auto) 0.1 Absolute Nucleated RBC 0.00 Nucleated RBC % 0.0 Sodium 137 Potassium 3.9 Chloride 100 L Carbon Dioxide 27 Anion Gap 10.0 BUN 7 Creatinine 0.6 Estimated GFR (MDRD) 119 Glucose 98 Calcium 9.4 Total Bilirubin 0.6 AST 21 ALT 18 Alkaline Phosphatase 39 L Total Protein 7.2 Albumin 3.9 Globulin 3.3 Albumin/Globulin Ratio 1.2 Lipase 46 - Rads (name of study) CT abdomen pelvis Radiology: Final report received, EMP read contemporaneously, See rad report (No acute abnormality) PD MEDICAL DECISION MAKING - ED course Complexity details: re-evaluated patient, considered differential (No cauda equina, no spinal epidural abscess, no fracture, no aortic dissection or jun dence of aneursym rupture), d/w patient, d/w family ED course: 26-year-old female with what appears to be pyelonephritis and back pain. We will change her pain medication to oxycodone from hydrocodone. She declines any pain medication here. We will have her continue her antibiotics as currently prescribed. No evidence of ureteral stone, abscess, etc. Patient counseled regarding signs and symptoms for which I believe and urgent re-evaluation would be necessary. Patient with good understanding of and agreement to plan and is comfortable going home at this time This document was made in part using voice recognition software. While efforts are made to proofread this document, sound alike and grammatical errors may occur. Departure - Departure Disposition: 01 Home, Self Care Clinical Impression: Pyelonephritis Back pain Qualifiers: Back pain location: low back pain Chronicity: acute Back pain laterality: bilateral Sciatica presence: without sciatica Qualified Code(s): M54.50 - Low back pain, unspecified Condition: Good Instructions: ED Neck Back Pain General, ED Kidney Infec Female Follow-Up: Concha Pang PA-C [Primary Care Provider] - Within 1 week Prescriptions: Oxycodone HCl/Acetaminophen [Percocet 5-325 mg Tablet] 1 - 2 each PO Q6H PRN #14 tablet PRN Reason: pain Comments: Continue your antibiotics at home as previously prescribed. Return if you worsen. A new prescription for pain medicine was sent to the [facility] pharmacy. You may take these as needed for pain. I am prescribing a short course of narcotic pain medication for you. These are potentially dangerous and addictive medications that should be used carefully. These medications may constipate you. Take an [id number] stool softener (docusate) twice daily with plenty of water while taking these medications. If you go 24 hours without a bowel movement, take [id number] miralax, per package instructions. Do not drink or drive while taking these medications. If you received narcotic or sedating medications while in the emergency department, do not drive for 24 hours. Store this medication in a safe, secure place and out of reach of children. It is a violation of federal law to give or sell this medication to another person or to use in a manner other than prescribed. The ED will not refill narcotic prescriptions, including prescriptions lost or stolen. To dispose of unwanted medications: 1. [facility] [address] in [place] has a medication drop box. They accept prescription medications (in pill form) Sunday through Sunday 9:00 a.m. to 5:00 p.m. 2. The [facility] [employer] accepts prescription medications (in pill form only) for disposal year round. Call for more informati on. 3. Contact the [facility] for the next [facility] sponsored prescription drug collection event. , [phone], or [phone]; Discharge Date/Time: 07/12/21 21:34
[2021-07-12 21:35] VITALS: BP 138/88
== END 2021-07-12 21:34 | disposition home or self-care (01) ==
LOC: ED 19:12
DX: N12 Tubulo-interstitial nephritis, not specified as acute or chronic (principal); F17.200 Nicotine dependence, unspecified, uncomplicated
CPT/HCPCS: 36415; 74177; 80053; 83690; 85025; 99284; Q9967

== ENCOUNTER 2021-07-22 19:06 | Emergency (ER) | payer MEDICAID ==
[2021-07-22 19:47] LABS: BASOPHILS % (AUTO) 0.5 %; EOSINOPHILS # (AUTO) 0.4 10^3/uL (0.0-0.7); EOSINOPHILS % (AUTO) 5.5 %; HCT - HEMATOCRIT 39.7 % (37.0-47.0); HGB - HEMOGLOBIN 13.2 g/dL (12.0-16.0); LYMPHOCYTES # (AUTO) 2.5 10^3/uL (1.5-3.5); LYMPHOCYTES % (AUTO) 33.6 %; MEAN CORPUSCULAR HEMOGLOBIN 31.4 pg (27.0-31.0); MEAN CORPUSCULAR HGB CONC 33.2 g/dL (32.0-36.0); MEAN CORPUSCULAR VOLUME 94.5 fL (81.0-99.0); MEAN PLATELET VOLUME 10.9 fL (7.9-10.8); MONOCYTES # (AUTO) 0.5 10^3/uL (0.0-1.0); MONOCYTES % (AUTO) 7.2 %; NEUTROPHILS # (AUTO) 3.9 10^3/uL (1.5-6.6); NEUTROPHILS % (AUTO) 52.9 %; PLT - PLATELET COUNT 302 10^3/uL (130-450); RED CELL DISTRIBUTION WIDTH 12.4 % (12.0-15.0); WHITE BLOOD COUNT 7.3 x10^3/uL (4.8-10.8)
--- NOTE | 2021-07-22 19:48 | ED Physician Documentation ---
PD HPI ABD PAIN - Stated complaint Stated Complaint: ABD PX - Chief complaint Chief Complaint: Abd Pain - Additional information Additional information: Patient is 26-year-old female presenting to the emergency department chief complaint of abdominal pain. Endorses for generalized abdominal pain x1 day with associated nausea and vomiting. Denies previous abdominal surgeries. Reports has felt similar symptoms in the past however never this severe. States in the past they were associated with "gas bubbles". Otherwise denies for any fever, chills, chest pain, shortness of breath, new rash, new weakness/numbness/tingling in any extremity. 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 Psych: Depression, Anxiety Musculoskeletal: None - Past Surgical History Past Surgical History: Yes General: Other HEENT: Other - Present Medications Home Medications: Ambulatory Orders Medication Instructions Recorded Confirmed clonazePAM [Clonazepam] 0.25 mg PO TID 12/21/16 07/12/21 Ciprofloxacin HCl [Cipro] 500 mg PO BID #20 tablet 07/11/21 07/12/21 HYDROcod/ACETAM 5/325 [[place] 5/325] 1 - 2 tab PO Q6H PRN #15 tablet 07/11/21 0 07/12/21 Norgestimate-Ethinyl Estradiol 1 each PO DAILY 07/12/21 07/12/21 [Sprintec 28 Day Tablet] Oxycodone HCl/Acetaminophen 1 - 2 each PO Q6H PRN #14 tablet 07/12/21 [Percocet 5-325 mg Tablet] - Allergies Allergies/Adverse Reactions: Allergies Allergy/AdvReac Type Severity Reaction Status Date / Time Penicillins Allergy Mild Unknown Verified 07/22/21 19:16 Sulfa (Sulfonamide Allergy Mild Unknown Verified 07/22/21 19:16 Antibiotics) buspirone Allergy Unknown Verified 07/22/21 19:16 cephalexin monohydrate * Allergy Hives Verified 07/22/21 19:16 [From [employer]] - Social History Does the pt smoke?: Yes Smoking Status: Current every day smoker Does the pt drink ETOH?: Yes Does the pt have substance abuse?: No - Immunizations Immunizations are current?: Yes - POLST Patient has POLST: No Results - Vitals Vitals: Vital Signs - 24 hr 07/22/21 07/22/21 07/22/21 19:13 22:44 23:00 Temperature 36.8 C Heart Rate 94 81 79 Respiratory 20 16 16 Rate Blood Pressure 128/87 H 135/73 H 135/73 H O2 Saturation 100 100 100 07/23/21 00:00 Temperature Heart Rate 87 Respiratory 16 Rate Blood Pressure 127/67 O2 Saturation 99 Oxygen O2 Source Room air - Labs Labs: Laboratory Tests 07/22/21 07/22/21 07/22/21 19:37 19:37 21:31 WBC 7.3 RBC 4.20 Hgb 13.2 Hct 39.7 MCV 94.5 MCH 31.4 H MCHC 33.2 RDW 12.4 Plt Count 302 MPV 10.9 H Neut # (Auto) 3.9 Lymph # (Auto) 2.5 [place] # (Auto) 0.5 Eos # (Auto) 0.4 Baso # (Auto) 0.0 Absolute Nucleated RBC 0.00 Nucleated RBC % 0.0 Sodium 136 Potassium 3.6 Chloride 101 Carbon Dioxide 24 Anion Gap 11.0 BUN 11 Creatinine 0.6 Estimated GFR (MDRD) 119 Glucose 95 Calcium 8.9 Total Bilirubin 0.4 AST 23 ALT 20 Alkaline Phosphatase 34 L Total Protein 7.3 Albumin 4.3 Globulin 3.0 Albumin/Globulin Ratio 1.4 Lipase 56 H Urine Color Urine Clarity Urine pH Ur Specific [place] Urine Protein Urine Glucose (UA) Urine Ketones Urine Occult Blood Urine Nitrite Urine Bilirubin Urine Urobilinogen Ur Leukocyte Esterase Ur Microscopic Review Urine Culture Comments Urine HCG, Qual NEGATIVE 07/22/21 21:31 WBC RBC Hgb Hct MCV MCH MCHC RDW Plt Count MPV Neut # (Auto) Lymph # (Auto) [place] # (Auto) Eos # (Auto) Baso # (Auto) Absolute Nucleated RBC Nucleated RBC % Sodium Potassium Chloride Carbon Dioxide Anion Gap BUN Creatinine Estimated GFR (MDRD) Glucose Calcium Total Bilirubin AST ALT Alkaline Phosphatase Total Protein Albumin Globulin Albumin/Globulin Ratio Lipase Urine Color YELLOW Urine Clarity CLEAR Urine pH 7.0 Ur Specific [place] 1.020 Urine Protein NEGATIVE Urine Glucose (UA) NEGATIVE Urine Ketones NEGATIVE Urine Occult Blood NEGATIVE Urine Nitrite NEGATIVE Urine Bilirubin NEGATIVE Urine Urobilinogen 0.2 (NORMAL) Ur Leukocyte Esterase NEGATIVE Ur Microscopic Review NOT INDICATED Urine Culture Comments NOT INDICATED Urine HCG, Qual PD MEDICAL DECISION MAKING - ED course Complexity details: reviewed results, d/w patient ED course: Patient is 26-year-old female presenting to the emergency department with generalized abdominal pain x1 day. Afebrile, hemodynamic stable on arrival to the emergency department. Moderate focal tenderness on my initial exam. Comprehensive labs obtained within normal limits are nonactionable. CT abdomen pelvis nonacute. Patient was given medication for pain, nausea, IV hydration. On reevaluation reported feeling significantly better. Repeat abdominal exam was benign. At this time will discharge with medication for symptomatic management. Encourage careful follow-up with primary care or return to the emergency department for new or worsening symptoms. Departure - Departure Disposition: Home, Self Care Clinical Impression: Abdominal pain Instructions: ED Abdominal Pain Female Non-Specific Abdominal Pain Comments: Thank you for allowing us to care for you today at [facility]. All the testing performed in the emergency department today including your blood work, your urine analysis, and the CT scan of your abdomen and pelvis were all very reassuring. Provided with some medication to take for pain or nausea from the emergency department. Please use these medications as you are directed. Please drink plenty fluids and get plenty of rest. Please contact your primary care doctor first thing on Sunday in order to arrange for a follow-up appointment. If anytime you develop any new or worsening symptoms please not hesitate to return to the emergency department. Discharge Date/Time: 07/23/21 00:02
[2021-07-22] MEDS ORDERED: LORazepam 2 MG/ML VIAL IVP STA (19:59)
[2021-07-22] MEDS ORDERED: SODIUM CHLORIDE 0.9% 1,000 ML IV STA (19:59)
[2021-07-22] MEDS ORDERED: HYDROmorphone 1 MG/ML CARPUJECT IVP STA ×2 (19:59→22:35)
[2021-07-22 20:01] LABS: ALBUMIN 4.3 g/dL (3.2-5.5); ALBUMIN/GLOBULIN RATIO 1.4 (1.0-2.2); BILIRUBIN,TOTAL 0.4 mg/dL (0.2-1.0); CALCIUM 8.9 mg/dL (8.5-10.3); CREATININE 0.6 mg/dL (0.4-1.0); POTASSIUM 3.6 mmol/L (3.5-5.0); TOTAL PROTEIN 7.3 g/dL (6.7-8.2)
[2021-07-22] MEDS ORDERED: IOVERSOL 320 50 ML VIAL ONE (20:41)
[2021-07-22 21:39] LABS: BILIRUBIN,URINE NEGATIVE (NEGATIVE); GLUCOSE, URINE (UA) NEGATIVE (NEGATIVE); KETONES,URINE (UA) NEGATIVE (NEGATIVE); LEUKOCYTE ESTERASE, URINE NEGATIVE (NEGATIVE); NITRITE,URINE NEGATIVE (NEGATIVE); OCCULT BLOOD,URINE NEGATIVE (NEGATIVE); PROTEIN,URINE NEGATIVE (NEGATIVE); UROBILINOGEN,URINE 0.2 (NORMAL) E.U./dL (NORMAL)
[2021-07-22 21:45] LABS: CLARITY,URINE CLEAR (CLEAR); HCG UR QUAL NEGATIVE
[2021-07-22] MEDS ORDERED: IOVERSOL 320 50 ML VIAL IVP ONE (22:12)
--- NOTE | 2021-07-22 23:02 | CT Report ---
PROCEDURE: Abdomen/Pelvis W INDICATIONS: abd pain CONTRAST: IV CONTRAST: Optiray 320 ml: 100 PO CONTRAST: *NO PO CONTRAST TECHNIQUE: After the administration of intravenous contrast, 5 mm thick sections acquired from the diaphragms to the symphysis. 5 mm thick coronal and sagittal reformats were acquired. For radiation dose reducti on, the following was used: automated exposure control, adjustment of mA and/or kV according to aislinn ent size. COMPARISON: CT abdomen and pelvis 07/12/2021. FINDINGS: Image quality: Excellent. ABDOMEN: Lung bases: Lucency at the right lung base is unchanged. No pleural effusion. Heart size is normal. Solid organs: Liver and spleen are normal in size and enhancement. Gallbladder is unremarkable. Bi liary system is non dilated. Pancreas enhances normally. No adrenal nodules. Kidneys demonstrate n ormal size and enhancement, without hydronephrosis. Peritoneum and bowel: Bowel loops demonstrate normal wall thickness and caliber. Normal appendix. No free fluid or air. Nodes and vessels: No retroperitoneal or mesenteric adenopathy by size criteria. Aorta and inferior vena cava are normal in size. Miscellaneous: No ventral hernias. PELVIS: Genitourinary: Bladder wall thickness is normal. No bladder stone. Small right ovarian cyst. Antever opal uterus. Small volume of free fluid in the pelvis. Miscellaneous: No inguinal hernias or adenopathy. Bones: No suspicious bony lesions. No vertebral body compression fractures. IMPRESSION: No acute abnormality identified. No free fluid. No bowel obstruction. Normal appendix. No hydronephro sis. Reviewed by: Bo Lopez MD on 07/22/2021 11:00 PM PDT Approved by: Bo Lopez MD on 07/22/2021 11:00 PM PDT Station ID: [id number]
[2021-07-22] MEDS ORDERED: ONDANSETRON ODT 4 MG Prepack 2 TL PRN (23:36)
[2021-07-22] MEDS ORDERED: oxyCODONE/ACET 5/325 Prepack 4 PO STA (23:37)
[2021-07-23 00:02] VITALS: BP 127/67
== END 2021-07-23 00:02 | disposition home or self-care (01) ==
LOC: ED 19:06
DX: R10.84 Generalized abdominal pain (principal); F17.200 Nicotine dependence, unspecified, uncomplicated
CPT/HCPCS: 36415; 74177; 80053; 81003; 81025; 83690; 85025; 96374; 96376; 99282; 99284; J1170; J2060; 81001; 87086

== ENCOUNTER 2021-07-26 14:33 | Emergency (ER) | payer MEDICAID ==
--- NOTE | 2021-07-26 14:50 | ED Physician Documentation ---
PD HPI ABD PAIN - Stated complaint Stated Complaint: ABD PX - Chief complaint Chief Complaint: Abd Pain - History obtained from History obtained from: Patient - Additional information Additional information: 26-year-old woman with recent pyelonephritis resolved saw my partner on Sunday for severe upper abdominal pain radiating around to the back. She got better after treatment here. On that day review of the chart shows that she had a normal CT and basically normal labs albeit a borderline elevated lipase at 56 with a high end of normal being 51. She was not and urinalysis was normal. Pain was better over the weekend albeit she felt "sore" on Sunday. Today pain much worse again. Does not seem to be associated with eating. No shortness of breath. No nausea. Before Sunday she had never had this before. 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 Psych: Depression, Anxiety Musculoskeletal: None - Past Surgical History Past Surgical History: Yes General: Other HEENT: Other - Present Medications Home Medications: Ambulatory Orders Medication Instructions Recorded Confirmed clonazePAM [Clonazepam] 0.25 mg PO TID 12/21/16 07/26/21 Norgestimate-Ethinyl Estradiol 1 each PO DAILY 07/12/21 07/26/21 [Sprintec 28 Day Tablet] Oxycodone HCl/Acetaminophen 1 - 2 each PO Q6H PRN #14 tablet 07/12/21 07/26/21 [Percocet 5-325 mg Tablet] HYDROcod/ACETAM 5/325 [[place] 5/325] 1 - 2 tab PO Q6H PRN #15 tablet 07/26/21 Omeprazole 40 mg PO DAILY #30 cap 07/26/21 clonazePAM [Clonazepam] 0.25 mg PO TID #21 tab 07/26/21 - Allergies Allergies/Adverse Reactions: Allergies Allergy/AdvReac Type Severity Reaction Status Date / Time Penicillins Allergy Mild Unknown Verified 07/26/21 15:23 Sulfa (Sulfonamide Allergy Mild Unknown Verified 07/26/21 15:23 Antibiotics) buspirone Allergy Unknown Verified 07/26/21 15:23 cephalexin monohydrate * Allergy Hives Verified 07/26/21 15:23 [From [employer]] - Social History Does the pt smoke?: Yes Smoking Status: Current every day smoker Does the pt drink ETOH?: Yes Does the pt have substance abuse?: No - Immunizations Immunizations are current?: Yes - POLST Patient has POLST: No PD ED PE NORMAL - Vitals Vital signs reviewed: Yes - General General: Alert and oriented X 3, No acute distress - HEENT HEENT: PERRL, EOMI - Neck Neck: Supple, no meningeal sign, No bony TTP - Cardiac Cardiac: RRR, No murmur - Respiratory Respiratory: No respiratory distress, Clear bilaterally - Abdomen Abdomen: Other (Exquisitely tender in the right upper quadrant with positive Mu rphy sign. Bedside ultrasound attempted on initial evaluation but too tender to tolerate. No lower abdominal tenderness.) - Back Back: No CVA TTP, No spinal TTP - Derm Derm: Normal color, Warm and dry - Extremities Extremities: No edema, No calf tenderness / cord - Neuro Neuro: Alert and oriented X 3, Normal speech Results - Vitals Vitals: Vital Signs - 24 hr 07/26/21 07/26/21 07/26/21 14:37 14:51 15:38 Temperature 36.7 C Heart Rate 101 H 91 Respiratory 17 18 18 Rate Blood Pressure 150/108 H 129/80 O2 Saturation 100 100 Oxygen O2 Source Room air - Labs Labs: Laboratory Tests 07/26/21 07/26/21 15:00 15:00 WBC 7.7 RBC 4.19 L Hgb 13.1 Hct 39.1 MCV 93.3 MCH 31.3 H MCHC 33.5 RDW 12.0 Plt Count 318 MPV 10.9 H Neut # (Auto) 4.7 Lymph # (Auto) 2.1 [place] # (Auto) 0.4 Eos # (Auto) 0.5 Baso # (Auto) 0.0 Absolute Nucleated RBC 0.00 Nucleated RBC % 0.0 Sodium 136 Potassium 3.5 Chloride 102 Carbon Dioxide 24 Anion Gap 10.0 BUN 11 Creatinine 0.6 Estimated GFR (MDRD) 119 Glucose 105 H Calcium 9.2 Total Bilirubin 0.2 AST 18 ALT 18 Alkaline Phosphatase 32 L Total Protein 6.7 Albumin 3.9 Globulin 2.8 Albumin/Globulin Ratio 1.4 Lipase 57 H PD MEDICAL DECISION MAKING - ED course ED course: 26-year-old woman presents with upper abdominal pain radiating to the back. Negative CT and work-up the other day. Today seeming more like biliary colic or cholecystitis but negative ultrasound and still basically unremarkable labs. Feeling better after meds here. By process emanation I suspect she has gastritis or ulcer and this diagnosis was discussed with her as well as the treatment and follow-up. The patient was counseled as to the diagnosis and need for follow-up. I counseled the patient with regard to signs and symptoms that would necessitate an urgent reevaluation in the emergency department. They understand they are welcome to return at any time if worse or if not improving as expected. This document was made in part using voice recognition software. While efforts are made to proofread this documents, sound alike and grammatical errors may occur. Departure - Departure Disposition: Home, Self Care Clinical Impression: Gastritis Condition: Good Record reviewed to determine appropriate education?: Yes Instructions: ED PUD Vs Gastritis Follow-Up: Juliann Cortes MD [Provider Admit Priv/Credential] - Prescriptions: clonazePAM [Clonazepam] 0.25 mg PO TID #21 tab HYDROcod/ACETAM 5/325 [[place] 5/325] 1 - 2 tab PO Q6H PRN #15 tablet PRN Reason: Pain Omeprazole 40 mg PO DAILY #30 cap Comments: I sent your prescriptions to [facility] pharmacy at the corner of [address] [address] and [facility] here in [place]. I am refilling your clonazepam for 1 week, call MELODY Pang's office for further refills. I think you probably have gastritis or an ulcer. You would benefit from avoiding nonsteroidal anti-inflammatory drugs such as ibuprofen or Aleve, caffeine, nicotine, spicy food, and stress. If not rapidly improving, consider following up with a surgeon for evaluation for upper endoscopy. I am prescribing a short course of narcotic pain medication for you. These are potentially dangerous and addictive medications that should be used carefully. These medications may constipate you. Take an [id number]-[id number] stool softener (docusate) twice daily with plenty of water while taking these medications. If y ou go 24 hours without a bowel movement, take jmin-prj-[id number] miralax, per package instructions. Do not drink or drive while taking these medications. If you received narcotic or sedating medications while in the emergency department, do not drive for 24 hours. Store this medication in a safe, secure place and out of reach of children. It is a violation of federal law to give or sell this medication to another person or to use in a manner other than prescribed. The ED will not refill narcotic prescriptions, including prescriptions lost or stolen. To dispose of unwanted medications: 1. [facility] at [address] in [place] has a medication drop box. They accept prescription medications (in pill form) Sunday through Sunday 9:00 a.m. to 5:00 p.m. 2. The [facility] [employer] accepts prescription medications (in pill form only) for disposal year round. Call for more information. 3. Contact the [facility] for the next [facility] sponsored prescription drug collection event. , [phone], or [phone]; Note that many narcotic pain relievers also contain Tylenol/acetaminophen. Please ensure that your total dose of acetaminophen from all sources does not exceed 3 g (3000 mg) per day. Forms: Activity restrictions
[2021-07-26] MEDS: KETOROLAC 15 MG/ML VIAL IVP STA (15:06)
[2021-07-26] MEDS: HYDROmorphone 1 MG/ML CARPUJECT IVP STA (15:06)
[2021-07-26 15:07] LABS: BASOPHILS % (AUTO) 0.4 %; EOSINOPHILS # (AUTO) 0.5 10^3/uL (0.0-0.7); EOSINOPHILS % (AUTO) 6.2 %; HCT - HEMATOCRIT 39.1 % (37.0-47.0); HGB - HEMOGLOBIN 13.1 g/dL (12.0-16.0); LYMPHOCYTES # (AUTO) 2.1 10^3/uL (1.5-3.5); LYMPHOCYTES % (AUTO) 26.8 %; MEAN CORPUSCULAR HEMOGLOBIN 31.3 pg (27.0-31.0); MEAN CORPUSCULAR HGB CONC 33.5 g/dL (32.0-36.0); MEAN CORPUSCULAR VOLUME 93.3 fL (81.0-99.0); MEAN PLATELET VOLUME 10.9 fL (7.9-10.8); MONOCYTES # (AUTO) 0.4 10^3/uL (0.0-1.0); MONOCYTES % (AUTO) 4.8 %; NEUTROPHILS # (AUTO) 4.7 10^3/uL (1.5-6.6); NEUTROPHILS % (AUTO) 61.5 %; PLT - PLATELET COUNT 318 10^3/uL (130-450); RED BLOOD COUNT 4.19 10^6/uL (4.20-5.40); WHITE BLOOD COUNT 7.7 x10^3/uL (4.8-10.8)
[2021-07-26 15:29] LABS: ALBUMIN 3.9 g/dL (3.2-5.5); ALBUMIN/GLOBULIN RATIO 1.4 (1.0-2.2); BILIRUBIN,TOTAL 0.2 mg/dL (0.2-1.0); CALCIUM 9.2 mg/dL (8.5-10.3); CREATININE 0.6 mg/dL (0.4-1.0); POTASSIUM 3.5 mmol/L (3.5-5.0); TOTAL PROTEIN 6.7 g/dL (6.7-8.2)
[2021-07-26 16:31] VITALS: BP 127/105
--- NOTE | 2021-07-26 16:36 | Ultrasound Report ---
PROCEDURE: Abdomen Limited INDICATIONS: RUQ pain TECHNIQUE: Real-time focused scanning was performed of the abdomen, with image documentation. COMPARISON: 07/22/2021 CT abdomen and pelvis. FINDINGS: Pancreas is obscured by bowel gas and not visualized. There is moderate hepatic steatosis. No focal hepatic mass. Contracted gallbladder without sludge, gallstone, wall thickening, or pericho lecystic fluid. No intrahepatic or extra hepatic biliary ductal dilatation. Right kidney unremarkable . IMPRESSION: No acute finding. Pancreas is not visualized. Reviewed by: José Miguel Cueva MD on 07/26/2021 4:35 PM PDT Approved by: José Miguel Cueva MD on 07/26/2021 4:35 PM PDT Station ID: [id number]
== END 2021-07-26 16:31 | disposition home or self-care (01) ==
LOC: ED 14:33
DX: K29.70 Gastritis, unspecified, without bleeding (principal); F17.200 Nicotine dependence, unspecified, uncomplicated
CPT/HCPCS: 36415; 76705; 80053; 83690; 85025; 96374; 99283; 99284; J1170

== ENCOUNTER 2021-08-03 15:08 | Emergency (ER) | payer MEDICAID ==
[2021-08-03 15:18] VITALS: BP 146/90
[2021-08-03] MEDS ORDERED: SODIUM CHLORIDE 0.9% 1,000 ML IV STA (15:35)
[2021-08-03 15:46] LABS: BASOPHILS % (AUTO) 0.5 %; EOSINOPHILS # (AUTO) 0.5 10^3/uL (0.0-0.7); EOSINOPHILS % (AUTO) 6.1 %; HCT - HEMATOCRIT 38.5 % (37.0-47.0); HGB - HEMOGLOBIN 12.7 g/dL (12.0-16.0); LYMPHOCYTES # (AUTO) 2.1 10^3/uL (1.5-3.5); LYMPHOCYTES % (AUTO) 27.9 %; MEAN CORPUSCULAR HEMOGLOBIN 31.2 pg (27.0-31.0); MEAN CORPUSCULAR VOLUME 94.6 fL (81.0-99.0); MEAN PLATELET VOLUME 10.8 fL (7.9-10.8); MONOCYTES # (AUTO) 0.4 10^3/uL (0.0-1.0); MONOCYTES % (AUTO) 5.6 %; NEUTROPHILS # (AUTO) 4.5 10^3/uL (1.5-6.6); NEUTROPHILS % (AUTO) 59.6 %; PLT - PLATELET COUNT 313 10^3/uL (130-450); RED BLOOD COUNT 4.07 10^6/uL (4.20-5.40); RED CELL DISTRIBUTION WIDTH 11.8 % (12.0-15.0); WHITE BLOOD COUNT 7.6 x10^3/uL (4.8-10.8)
[2021-08-03] MEDS ORDERED: HYDROcod/ACETAM 5/325 MG TABLET PO STA (15:51)
--- NOTE | 2021-08-03 15:58 | ED Physician Documentation ---
PD HPI ABD PAIN - Stated complaint Stated Complaint: ABD PX - Chief complaint Chief Complaint: Abd Pain - History obtained from History obtained from: Patient - Additional information Additional information: The patient returns to the emergency department for chief complaint of upper abdominal pain. The patient has been seen here several times in the last month for the same, and has had work-up with repeated labs, as well as CT scans and ultrasound of the gallbladder. Work-up as yet has been negative. The patient states that she was at work today and that while she always has underlying pain, the pain sometimes flares up and gets worse. This is what happened this afternoon. She states her boss family asked her to leave work because she appears uncomfortable. After multiple negative work-ups in the ED, it was advised to the patient that she follow-up with her primary care provider to discuss having a and endoscopy done to evaluate for gastritis and possibly ulcer. However, when the patient went to see her PA Hazel Pang, Ms. Pang stated to her that she wanted to hold off on the EGD because according to the patient, Ms. Pang had noted on the CT report that the gallbladder was "contracted". According to the patient, Ms. Pang felt that this indicated that there may be a problem with the gallbladder or biliary system and felt that the patient should be worked up further with ERCP in this regard before proceeding with EGD. The patient has already had an ultrasound of the gallbladder and other right upper quadrant structures, which was unremarkable. Ms. Pang also felt the patient should first have a pelvic ultrasound to evaluate her polycystic ovarian disease. The patient denies any lower abdominal pain. She has only had upper abdominal pain which is on both sides but a little worse on the right. The patient denies any nausea or vomiting. No jaundice or icterus that she has noticed. No fevers or chills. No dysuria. No change in bowel habits. No other complaints at this time. She states that the flareup of pain has lasted about the last 2 hours. Review of Systems Ten Systems: 10 systems reviewed and negative Constitutional: reports: Reviewed and negative Eyes: reports: Reviewed and negative Ears: reports: Reviewed and negative Nose: reports: Reviewed and negative Throat: reports: Reviewed and negative Cardiac: reports: Reviewed and negative Respiratory: reports: Reviewed and negative GI: reports: Reviewed and negative : reports: Reviewed and negative Skin: reports: Reviewed and negative Musculoskeletal: reports: Reviewed and negative Neurologic: reports: Reviewed and negative Psychiatric: reports: Reviewed and negative Endocrine: reports: Reviewed and negative Immunocompromised: reports: Reviewed and negative PD PAST MEDICAL HISTORY - Past Medical History Respiratory: Pneumonia Endocrine/Autoimmune: None, Other GI: 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 Psych: Depression, Anxiety Musculoskeletal: None - Past Surgical History Past Surgical History: Yes General: Other HEENT: Other - Present Medications Home Medications: Ambulatory Orders Medication Instructions Recorded Confirmed HYDROcod/ACETAM 5/325 [Arion 5/325] 1 - 2 tab PO Q6H PRN #15 tablet 07/26/21 08/03/21 Omeprazole 40 mg PO DAILY #30 cap 07/26/21 08/03/21 clonazePAM [Clonazepam] 0.25 mg PO TID #21 tab 07/26/21 08/03/21 - Allergies Allergies/Adverse Reactions: Allergies Allergy/AdvReac Type Severity Reaction Status Date / Time Penicillins Allergy Mild Unknown Verified 08/03/21 15:17 Sulfa (Sulfonamide Allergy Mild Unknown Verified 08/03/21 15:17 Antibiotics) buspirone Allergy Unknown Verified 08/03/21 15:17 cephalexin monohydrate * Allergy Hives Verified 08/03/21 15:17 [From [employer]] - Social History Does the pt smoke?: Yes Smoking Status: Current every day smoker Does the pt drink ETOH?: Yes Does the pt have substance abuse?: No - Immunizations Immunizations are current?: Yes - POLST Patient has POLST: No PD ED PE NORMAL - Vitals Vital signs reviewed: Yes - General General: Alert and oriented X 3, No acute distress, Well developed/nourished - HEENT HEENT: Atraumatic, PERRL, EOMI, Moist mucous membranes - Neck Neck: Supple, no meningeal sign - Cardiac Cardiac: RRR, No murmur, Strong equal pulses - Respiratory Respiratory: No respiratory distress, Clear bilaterally - Abdomen Abdomen: Soft, Non distended, Other (tender across upper abdomen, no rebound or guarding) - Derm Derm: Normal color, Warm and dry, No rash - Extremities Extremities: No deformity, No edema - Neuro Neuro: Alert and oriented X 3 - Psych Psych: Normal mood, Normal affect Results - Vitals Vitals: Vital Signs - 24 hr 08/03/21 15:12 Temperature 36.6 C Heart Rate 98 Respiratory 16 Rate Blood Pressure 146/90 H O2 Saturation 94 Oxygen O2 Source Room air - Labs Labs: Laboratory Tests 08/03/21 08/03/21 15:42 15:42 WBC 7.6 RBC 4.07 L Hgb 12.7 Hct 38.5 MCV 94.6 MCH 31.2 H MCHC 33.0 RDW 11.8 L Plt Count 313 MPV 10.8 Neut # (Auto) 4.5 Lymph # (Auto) 2.1 [place] # (Auto) 0.4 Eos # (Auto) 0.5 Baso # (Auto) 0.0 Absolute Nucleated RBC 0.00 Nucleated RBC % 0.0 Sodium 140 Potassium 3.9 Chloride 105 Carbon Dioxide 26 Anion Gap 9.0 BUN 9 Creatinine 0.6 Estimated GFR (MDRD) 119 Glucose 93 Calcium 9.4 Total Bilirubin 0.4 AST 19 ALT 19 Alkaline Phosphatase 34 L Total Protein 6.6 L Albumin 4.0 Globulin 2.6 Albumin/Globulin Ratio 1.5 Lipase 49 PD MEDICAL DECISION MAKING - ED course Complexity details: reviewed old records, reviewed results, re-evaluated patient, considered differential, d/w patient ED course: The patient was not nauseated but was having a recurrence of the abdominal pain that she has been having. Blood work was obtained. I did not feel further imaging was indicated, as I reviewed her imaging records and findings have been unremarkable. I did discuss with the patient that she should revisit the idea of endoscopy with her PA, as she has already had 2 studies that imaged the gallbladder and the rest of the biliary system and these were unremarkable. I explained to the patient that a contracted gallbladder simply means that the gallbladder has been emptied and rather than indicating a possible problem, demonstrates that the biliary system is patent. Therefore, this should not be a reason to delay endoscopy. Patient's labs are unremarkable. She is feeling better after 2 tablets of Vicodin orally, which she did prefer over parenteral medication. We have discussed follow-up and the usual indications for return. Departure - Departure Disposition: 01 Home, Self Care Clinical Impression: Abdominal pain Qualifiers: Abdominal location: upper abdomen, unspecified Qualified Code(s): R10.10 - Upper abdominal pain, unspecified Condition: Stable
[2021-08-03 16:01] LABS: ALBUMIN/GLOBULIN RATIO 1.5 (1.0-2.2); BILIRUBIN,TOTAL 0.4 mg/dL (0.2-1.0); CALCIUM 9.4 mg/dL (8.5-10.3); CREATININE 0.6 mg/dL (0.4-1.0); POTASSIUM 3.9 mmol/L (3.5-5.0); TOTAL PROTEIN 6.6 g/dL (6.7-8.2)
== END 2021-08-03 17:11 | disposition home or self-care (01) ==
LOC: ED 15:08
DX: R10.10 Upper abdominal pain, unspecified (principal); F17.200 Nicotine dependence, unspecified, uncomplicated
CPT/HCPCS: 36415; 80053; 83690; 85025; 99283; 99284; A9270

== ENCOUNTER 2021-08-10 20:21 | Outpatient (CLI) | payer MEDICAID, OTHER ==
--- NOTE | 2021-08-11 14:20 | Ultrasound Report ---
PROCEDURE: Pelvic w/Transvaginal INDICATIONS: POLYCYSTIC OVARIAN DISEASE TECHNIQUE: Real-time scanning was performed of the pelvic organs, with image documentation. Additional endovagi nal scanning was necessary due to incomplete visualization of the adnexal and endometrial structures by transabdominal scanning. COMPARISON: None. FINDINGS: Limited scanning through the kidneys shows no hydronephrosis. No pathologic free abdominal or pelvic fluid. Uterus: Uterus is normal in size at 7.7 x 5.2 x 4.3 cm. The endometrium measures 10-14 mm in combin ed thickness. Ovaries: Right ovary measures 3.2 x 3.2 x 3.1 cm, volume 16.6 cc. Greater than 12 follicles are note d. The largest measures approximately 8 mm Left ovary measures 3.6 x 2.3 x 3.6 cm, volume 16.3 cc. Le ss than 12 follicles follicles are noted. The largest measures approximately 10 mm. Other: No free pelvic fluid. IMPRESSION: Multiple subcentimeter follicles as noted above. Reviewed by: Mame Rojas MD on 08/11/2021 2:19 PM PDT Approved by: Mame Rojas MD on 08/11/2021 2:19 PM PDT Station ID: [id number]
== END 2021-08-10 20:22 | disposition home or self-care (01) ==
LOC: DI 20:21
PROVIDERS: ATTEND Physician Assistant Medical
DX: E28.2 Polycystic ovarian syndrome (principal)

== ENCOUNTER 2021-09-18 00:42 | Emergency (ER) | payer MEDICAID ==
[2021-09-18 01:43] LABS: BASOPHILS % (AUTO) 0.5 %; EOSINOPHILS # (AUTO) 0.7 10^3/uL (0.0-0.7); EOSINOPHILS % (AUTO) 8.2 %; HCT - HEMATOCRIT 39.6 % (37.0-47.0); LYMPHOCYTES # (AUTO) 2.8 10^3/uL (1.5-3.5); LYMPHOCYTES % (AUTO) 34.6 %; MEAN CORPUSCULAR HEMOGLOBIN 30.3 pg (27.0-31.0); MEAN CORPUSCULAR HGB CONC 32.8 g/dL (32.0-36.0); MEAN CORPUSCULAR VOLUME 92.3 fL (81.0-99.0); MEAN PLATELET VOLUME 10.9 fL (7.9-10.8); MONOCYTES # (AUTO) 0.5 10^3/uL (0.0-1.0); MONOCYTES % (AUTO) 5.6 %; NEUTROPHILS # (AUTO) 4.1 10^3/uL (1.5-6.6); NEUTROPHILS % (AUTO) 50.9 %; PLT - PLATELET COUNT 275 10^3/uL (130-450); RED BLOOD COUNT 4.29 10^6/uL (4.20-5.40); RED CELL DISTRIBUTION WIDTH 11.7 % (12.0-15.0); WHITE BLOOD COUNT 8.2 x10^3/uL (4.8-10.8)
[2021-09-18 01:54] LABS: ALBUMIN 3.9 g/dL (3.2-5.5); ALBUMIN/GLOBULIN RATIO 1.3 (1.0-2.2); BILIRUBIN,TOTAL 0.5 mg/dL (0.2-1.0); CALCIUM 9.3 mg/dL (8.5-10.3); CREATININE 0.6 mg/dL (0.4-1.0); POTASSIUM 3.9 mmol/L (3.5-5.0); TOTAL PROTEIN 6.8 g/dL (6.7-8.2)
--- NOTE | 2021-09-18 03:05 | ED Physician Documentation ---
PD HPI ABD PAIN - Stated complaint Stated Complaint: ABDOMINAL PX - Chief complaint Chief Complaint: Abd Pain - History obtained from History obtained from: Patient - History of Present Illness Timing - onset: How many months ago (has had intermittent pain RUQ for few months, most consistent the past month. Has had evaluations with CT, US, HIDA, labs. Saw GI and is being scheduled for EGD/ERCP. Has increased pain today unrelieved with home PO meds. Same character and location of pain.) Timing - details: Gradual onset, Still present (worse again today), Waxing and waning Quality: Cramping, Aching, Pain Location: RUQ, Periumbilical Improved by: No: Eating, Laying still Worsened by: Eating, Moving, Palpation. No: Breathing, Position Associated symptoms: Nausea, Loss of appetite. No: Fever, Vomiting, Diarrhea, Constipation, Dysuria Similar symptoms before: No diagnosis Recently seen: Clinic, Emergency Dept Review of Systems Constitutional: denies: Fever, Chills Nose: denies: Rhinorrhea / runny nose, Congestion Throat: denies: Sore throat Respiratory: denies: Cough GI: reports: Abdominal Pain, Nausea. denies: Vomiting, Constipation, Diarrhea : denies: Dysuria Skin: denies: Rash Musculoskeletal: reports: Back pain (the pain does wrap around to the thoracic area. Denies rash nor sores with the onset/course of the pain.) PD PAST MEDICAL HISTORY - Past Medical History Past Medical History: Yes Respiratory: Pneumonia Endocrine/Autoimmune: None, Other GI: None [employer]: Other : None HEENT: Other Psych: Depression, Anxiety Musculoskeletal: None - Past Surgical History Past Surgical History: Yes General: Other HEENT: Other - Present Medications Home Medications: Ambulatory Orders Medication Instructions Recorded Confirmed HYDROcod/ACETAM 5/325 [[place] 5/325] 1 - 2 tab PO Q6H PRN #15 tablet 07/26/21 08/03/21 Omeprazole 40 mg PO DAILY #30 cap 07/26/21 08/03/21 clonazePAM [Clonazepam] 0.25 mg PO TID #21 tab 07/26/21 08/03/21 dexAMETHasone [Decadron] 4 mg PO DAILY #5 tablet 09/18/21 oxyCODONE [Roxicodone] 5 mg PO Q6H PRN #15 tablet 09/18/21 - Allergies Allergies/Adverse Reactions: Allergies Allergy/AdvReac Type Severity Reaction Status Date / Time Penicillins Allergy Mild Unknown Verified 09/18/21 01:26 Sulfa (Sulfonamide Allergy Mild Unknown Verified 09/18/21 01:26 Antibiotics) buspirone Allergy Unknown Verified 09/18/21 01:26 cephalexin monohydrate * Allergy Hives Verified 09/18/21 01:26 [From Keflex] - Social History Does the pt smoke?: Yes Smoking Status: Current every day smoker Does the pt drink ETOH?: Yes Does the pt have substance abuse?: No - Immunizations Immunizations are current?: Yes - POLST Patient has POLST: No PD ED PE NORMAL - Vitals Vital signs reviewed: Yes - General General: Alert and oriented X 3, Well developed/nourished, Other (appears in considerable pain. ) - Neck Neck: Supple, no meningeal sign, No adenopathy - Cardiac Cardiac: RRR, No murmur - Respiratory Respiratory: No respiratory distress, Clear bilaterally - Abdomen Abdomen: Normal bowel sounds, Soft, Non distended, No organomegaly, Other (tender RUQ to mid abd on right. Not tender on left. Some tender to mid thoracic right side. Not tender to light touch. No rash nor sores. ) Results - Vitals Vitals: Oxygen O2 Source Room air - Labs Labs: Laboratory Tests 09/18/21 09/18/21 09/18/21 01:36 01:36 02:55 WBC 8.2 RBC 4.29 Hgb 13.0 Hct 39.6 MCV 92.3 MCH 30.3 MCHC 32.8 RDW 11.7 L Plt Count 275 MPV 10.9 H Neut # (Auto) 4.1 Lymph # (Auto) 2.8 [place] # (Auto) 0.5 Eos # (Auto) 0.7 Baso # (Auto) 0.0 Absolute Nucleated RBC 0.00 Nucleated RBC % 0.0 Sodium 136 Potassium 3.9 Chloride 100 L Carbon Dioxide 28 Anion Gap 8.0 BUN 10 Creatinine 0.6 Estimated GFR (MDRD) 119 Glucose 99 Calcium 9.3 Total Bilirubin 0.5 AST 16 ALT 18 Alkaline Phosphatase 34 L Total Protein 6.8 Albumin 3.9 Globulin 2.9 Albumin/Globulin Ratio 1.3 Lipase 47 Urine Color YELLOW Urine Clarity CLEAR Urine pH 6.0 Ur Specific [place] 1.010 Urine Protein NEGATIVE Urine Glucose (UA) NEGATIVE Urine Ketones NEGATIVE Urine Occult Blood TRACE-INTA Urine Nitrite NEGATIVE Urine Bilirubin NEGATIVE Urine Urobilinogen 0.2 (NORMAL) Ur Leukocyte Esterase NEGATIVE Ur Microscopic Review NOT INDICATED Urine Culture Comments NOT INDICATED Urine HCG, Qual NEGATIVE PD MEDICAL DECISION MAKING - ED course Complexity details: reviewed old records (prior charts available here and [facility]. ), considered differential (semi-chronic pain with multiple imaging/evaluations, scheduling for ERCP/EGD with GI. I did not see need for further imaging/labs at this time. Will treat pain exacerbation. ), d/w patient Departure - Departure Disposition: Home, Self Care Clinical Impression: Abdominal pain Qualifiers: Abdominal location: upper abdomen, unspecified Qualified Code(s): R10.10 - Upper abdominal pain, unspecified Condition: Stable Record reviewed to determine appropriate education?: Yes Instructions: ED Abdominal Pain Female Non-Specific Abdominal Pain Follow-Up: Concha Pang PA-C [Primary Care Provider] - Prescriptions: dexAMETHasone [Decadron] 4 mg PO DAILY #5 tablet oxyCODONE [Roxicodone] 5 mg PO Q6H PRN #15 tablet PRN Reason: Pain Comments: I wrote for some more oxycodone to have on hand in case for your pain. You can use some Tylenol if needed for mild pains. It is unclear the cause of your pain and with the multiple tests you have had without obvious finding, consideration could be for nerve type pain coming from the back. We could try a short course of a steroid anti-inflammatory that may be a little more tailored to her neuropathic pain. Subsequently her primary care could also consider other medications for neuropathic pain such as amitriptyline or gabapentin or such. Continue follow-up with GI for the planned endoscopy as well. I transmitted your prescriptions to the [facility] pharmacy here in [place]. My narcotic instructions I am prescribing a short course of narcotic pain medication for you. These are potentially dangerous and addictive medications that should be used carefully. These medications may constipate you. Take an ciex-thn-abzarem stool softener such as docusate twice daily with plenty of water while taking these medications. If you go 24 hours without a bowel movement, take [id number] MiraLAX, per package instructions. Do not drink or drive while taking these medications. If you received narcotic or sedating medications while in the emergency department do not drive for 24 hours. Store this medication in a safe, secure place and out of reach of children. It is a violation of federal law to give or sell this medication to another person or to use in a manner other than prescribed. The ED will not refill narcotic prescriptions, including prescriptions lost or stolen. You can dispose of unwanted medications at the [facility] office or at several pharmacies such as [facility]. Discharge Date/Time: 09/18/21 04:35
[2021-09-18 03:12] LABS: BILIRUBIN,URINE NEGATIVE (NEGATIVE); GLUCOSE, URINE (UA) NEGATIVE (NEGATIVE); KETONES,URINE (UA) NEGATIVE (NEGATIVE); LEUKOCYTE ESTERASE, URINE NEGATIVE (NEGATIVE); NITRITE,URINE NEGATIVE (NEGATIVE); OCCULT BLOOD,URINE TRACE-INTA (NEGATIVE); PROTEIN,URINE NEGATIVE (NEGATIVE); UROBILINOGEN,URINE 0.2 (NORMAL) E.U./dL (NORMAL)
[2021-09-18 03:14] LABS: CLARITY,URINE CLEAR (CLEAR); HCG UR QUAL NEGATIVE
[2021-09-18] MEDS ORDERED: KETOROLAC 30 MG/ML VIAL IM STA (03:37)
[2021-09-18] MEDS ORDERED: HYDROmorphone 2 MG/ML VIAL IM STA (03:37)
[2021-09-18 04:01] VITALS: BP 132/90
--- OUTSIDE RECORDS SUMMARY | 2021-09-22 15:35 | EXTERNAL MEDICAL SUMMARY RPT | Continuity of Care Document ---
:1995 Author Organization [place] Address [address] [place] [address] Phone Allergies and Intolerances date description facility type (no date) Penicillins [facility] (unknown) (no date) Sulfa (Sulfonamide Antibiotics) [facility] (unknown) (no date) amoxicillin [facility] (unknown) (no date) buspirone [facility] (unknown) Encounters No information. Functional Status No information. Immunizations No information. Medications date description facility +0000 Omeprazole 20 MG Enteric Coated Capsul e [facility] +0000 Sertraline 25 MG Oral Tablet [facility] +0000 tramadol hydrochloride 50 MG Oral Tabl et [facility] Problems No information. Procedures date description facility +0000 General Physician [facility] Results/Labs test date author facility value unit interpret ation Result panel 1 (unknown) (no (unknown) (unknown) (no value) (units (unk nown) date) unknown) (unknown) (no (unknown) (unknown) [address] [place] [address] (units (unknown) date) unknown) (unknown) (no (unknown) (unknown) [place], [place] (units ( unknown) date) [id number] unknown) (unknown) (no (unknown) (unknown) [facility] (units (unknown) date) unknown) (unknown) (no (unknown) (unknown) Signed (units (unkno wn) date) unknown) (unknown) (no (unknown) (unknown) Ultrasound Report (units (unknown) date) unknown) (unknown) (no (unknown) (unknown) (no value) (units (unk nown) date) unknown) (unknown) (no (unknown) (unknown) 08/06/21 (units (unkno wn) date) unknown) (unknown) (no (unknown) (unknown) Approved by: (units (u nknown) date) Mendel Nieto M.D. on unknown) 08/06/2021 at 18:22 (unknown) (no (unknown) (unknown) Biliary ducts: (units (unknown) date) Intrahepatic bile unknown) ducts are not dilated. CBD measures 2.5 mm (unknown) (no (unknown) (unknown) COMPARISON: (units (un known) date) None. unknown) (unknown) (no (unknown) (unknown) Dictated by: (units (u nknown) date) Mendel Nieto M.D. on unknown) 08/06/2021 at 18:19 (unknown) (no (unknown) (unknown) FINDINGS: (units (unkn own) date) unknown) (unknown) (no (unknown) (unknown) Gallbladder: (units (u nknown) date) Within normal unknown) limits. 1 mm wall thickness. (unknown) (no (unknown) (unknown) IMPRESSION: No (units (unknown) date) gallstones. unknown) Biliary tree is within normal limits. Possible (unknown) (no (unknown) (unknown) INDICATIONS: RUQ (units (unknown) date) pain, family hx unknown) gallstones, worsening pain (unknown) (no (unknown) (unknown) Liver: Liver is (units (unknown) date) normal in size and unknown) homogeneous. Question increased (unknown) (no (unknown) (unknown) Pancreas: Not (units (unknown) date) well seen due to unknown) bowel gas. (unknown) (no (unknown) (unknown) Real-time (units (unkn own) date) scanning was unknown) performed of the abdominal and retroperitoneal organs, (unknown) (no (unknown) (unknown) Spleen: Spleen (units (unknown) date) is normal in size unknown) and homogeneous in echotexture. (unknown) (no (unknown) (unknown) TECHNIQUE: (units (unk nown) date) unknown) (unknown) (no (unknown) (unknown) documentation. (units (unknown) date) unknown) (unknown) (no (unknown) (unknown) measures 1.3 mm. (units (unknown) date) unknown) (unknown) (no (unknown) (unknown) steatosis. (units (unk nown) date) unknown) (unknown) (no (unknown) (unknown) [id number] (units (unkno wn) date) unknown) (unknown) (no (unknown) (unknown) Accession Number: (units (unknown) date) [id number] unknown) (unknown) (no (unknown) (unknown) Age/Sex: 26 / F (units (unknown) date) Date of Service: unknown) (unknown) (no (unknown) (unknown) : 1995 (units (unknown) date) Acct:[id number] unknown) (unknown) (no (unknown) (unknown) Loc: ED (units (unkno wn) date) unknown) (unknown) (no (unknown) (unknown) Ordering (units (unkno wn) date) Provider: unknown) Sheryl Snell (unknown) (no (unknown) (unknown) PROCEDURE: US (units (unknown) date) ABDOMEN LIMITED unknown) (unknown) (no (unknown) (unknown) Patient: (units (unkno wn) date) Patricia Irvin unknown) MR#: [id number] (unknown) (no (unknown) (unknown) Procedure: US (units ( unknown) date) abdomen limited unknown) (unknown) (no (unknown) (unknown) echogenicity. (units ( unknown) date) unknown) (unknown) (no (unknown) (unknown) in CHD (units (unkno wn) date) unknown) (unknown) (no (unknown) (unknown) mild hepatic (units (u nknown) date) unknown) (unknown) (no (unknown) (unknown) with image (units (unk nown) date) unknown) Result panel 2 (unknown) (no (unknown) (unknown) (no value) (units (unk nown) date) unknown) (unknown) (no (unknown) (unknown) (no value) (units (unk nown) date) unknown) (unknown) (no (unknown) (unknown) Date of Service: (units (unknown) date) 08/06/21 unknown) (unknown) (no (unknown) (unknown) (no value) (units (unk nown) date) unknown) (unknown) (no (unknown) (unknown) 0.5 mg PO BID (units ( unknown) date) Qty: 0 0RF unknown) (unknown) (no (unknown) (unknown) 50 mg PO QDAY (units ( unknown) date) Qty: 0 0RF unknown) (unknown) (no (unknown) (unknown) Allergies (units (unkn own) date) unknown) (unknown) (no (unknown) (unknown) ED Orders (units (unkn own) date) unknown) (unknown) (no (unknown) (unknown) Emergency Report (units (unknown) date) unknown) (unknown) (no (unknown) (unknown) Home Medications (units (unknown) date) unknown) (unknown) (no (unknown) (unknown) [facility] (units (unknown) date) [address] unknown) [place] [address] (unknown) (no (unknown) (unknown) Point of Care (units ( unknown) date) Testing unknown) (unknown) (no (unknown) (unknown) Stop: 08/06/21 (units (unknown) date) 17:30 unknown) (unknown) (no (unknown) (unknown) Stop: 08/06/21 (units (unknown) date) 17:34 unknown) (unknown) (no (unknown) (unknown) (no value) (units (unk nown) date) unknown) (unknown) (no (unknown) (unknown) clonazepam (units (unk nown) date) [Klonopin] 0.5 MG unknown) tablet (unknown) (no (unknown) (unknown) sertraline (units (unk nown) date) [Zoloft] 50 MG unknown) tablet (unknown) (no (unknown) (unknown) Medication (units (unk nown) date) Instructions unknown) Recorded Confirmed (unknown) (no (unknown) (unknown) *Temp,ED* (units (unkn own) date) [Primary Care unknown) Provider] - (unknown) (no (unknown) (unknown) 08/06/21 17:26 (units (unknown) date) unknown) (unknown) (no (unknown) (unknown) 08/06/21 17:28 (units (unknown) date) unknown) (unknown) (no (unknown) (unknown) [id number] (units (unkno wn) date) unknown) (unknown) (no (unknown) (unknown) ANTIBIOTICS)] (units ( unknown) date) unknown) (unknown) (no (unknown) (unknown) Age/Sex: 26 / F (units (unknown) date) unknown) (unknown) (no (unknown) (unknown) Allergy/AdvReac (units (unknown) date) Type Severity unknown) Reaction Status Date / Time (unknown) (no (unknown) (unknown) Antibiotics) (units (u nknown) date) unknown) (unknown) (no (unknown) (unknown) CBC Auto Diff (units ( unknown) date) [Complete Blood unknown) Count AUTO DIFF] Stat (unknown) (no (unknown) (unknown) CMP (units (unkno wn) date) [Comprehensive unknown) Metabolic Panel] Stat (unknown) (no (unknown) (unknown) Course (units (unkno wn) date) unknown) (unknown) (no (unknown) (unknown) : 1995 (units (unknown) date) Acct:[id number] unknown) (unknown) (no (unknown) (unknown) Departure (units (unkn own) date) unknown) (unknown) (no (unknown) (unknown) Discharge Plan (units (unknown) date) unknown) (unknown) (no (unknown) (unknown) ER Physician: (units ( unknown) date) Sheryl Snell unknown) RIDE OPERATOR (unknown) (no (unknown) (unknown) General (units (unkno wn) date) unknown) (unknown) (no (unknown) (unknown) HPI - Abdominal (units (unknown) date) Pain unknown) (unknown) (no (unknown) (unknown) HPI narrative: (units (unknown) date) unknown) (unknown) (no (unknown) (unknown) History of (units (unk nown) date) Present Illness unknown) (unknown) (no (unknown) (unknown) Ketorolac (units (unkn own) date) Tromethamine unknown) (Ketorolac 30 Mg/Ml Vial) 15 mg IV NOW ONE (unknown) (no (unknown) (unknown) Lab Data (units (unkno wn) date) unknown) (unknown) (no (unknown) (unknown) Lipase Stat (units (un known) date) unknown) (unknown) (no (unknown) (unknown) Lorazepam (units (unkn own) date) (Lorazepam 0.5 Mg unknown) Tablet) 1 mg PO NOW ONE (unknown) (no (unknown) (unknown) MDM - Abdominal (units (unknown) date) Pain unknown) (unknown) (no (unknown) (unknown) No Action (units (unkn own) date) unknown) (unknown) (no (unknown) (unknown) Ondansetron HCl (units (unknown) date) (Ondansetron 4 unknown) Mg/2 Ml Inj) 4 mg IV NOW ONE (unknown) (no (unknown) (unknown) Ordered: (units (unkno wn) date) unknown) (unknown) (no (unknown) (unknown) Orders (units (unkno wn) date) unknown) (unknown) (no (unknown) (unknown) Patient History (units (unknown) date) unknown) (unknown) (no (unknown) (unknown) Patient denies (units (unknown) date) any abdominal unknown) surgeries in the past, states she has PCOS, has an (unknown) (no (unknown) (unknown) Patient: (units (unkno wn) date) Patricia Irvin unknown) MR#: [id number] (unknown) (no (unknown) (unknown) Penicillins (units (un known) date) [PENICILLINS] unknown) Allergy Unknown Unverified 07/11/17 12:47 (unknown) (no (unknown) (unknown) Point of care (units ( unknown) date) testing: unknown) (unknown) (no (unknown) (unknown) Test (units (unknown) date) Results unknown) Negative (unknown) (no (unknown) (unknown) Prescriptions: (units (unknown) date) unknown) (unknown) (no (unknown) (unknown) Referrals: (units (unk nown) date) unknown) (unknown) (no (unknown) (unknown) Related Data (units (u nknown) date) unknown) (unknown) (no (unknown) (unknown) She states her (units (unknown) date) last menses was unknown) 07/27/21, and her has had a vasectomy. (unknown) (no (unknown) (unknown) Signed By: (units (unk nown) date) unknown) (unknown) (no (unknown) (unknown) Smoking Status: (units (unknown) date) Current every day unknown) smoker (unknown) (no (unknown) (unknown) Social History (units (unknown) date) unknown) (unknown) (no (unknown) (unknown) Stated (units (unkno wn) date) Complaint: ABD unknown) pain post kidney infection (unknown) (no (unknown) (unknown) Sulfa (units (unkno wn) date) (Sulfonamide unknown) Allergy Unknown Unverified 07/11/17 12:47 (unknown) (no (unknown) (unknown) This is a (units (unkn own) date) 26-year-old unknown) female who presents to the emergency department today for (unknown) (no (unknown) (unknown) Time Seen by (units (u nknown) date) Provider: unknown) 08/06/21 17:10 (unknown) (no (unknown) (unknown) US abdomen (units (unk nown) date) limited Stat unknown) (unknown) (no (unknown) (unknown) Jamie Pang, (units (u nknown) date) PA-C [Non-Staff] unknown) - (unknown) (no (unknown) (unknown) Concha Pang, (units (unknown) date) PA-C [Non-Staff] unknown) - (unknown) (no (unknown) (unknown) [SULFA (units (unkno wn) date) (SULFONAMIDE unknown) (unknown) (no (unknown) (unknown) a contracted (units (u nknown) date) gallbladder, and unknown) she endorses ongoing abdominal pain since her (unknown) (no (unknown) (unknown) allergies, she (units (unknown) date) was treated with unknown) ciprofloxacin due to her allergy to (unknown) (no (unknown) (unknown) buspirone [From (units (unknown) date) BUSPAR] Allergy unknown) Unknown Unverified 07/11/17 12:47 (unknown) (no (unknown) (unknown) cephalosporins, (units (unknown) date) penicillin, and unknown) sulfa and states that her symptoms got better. (unknown) (no (unknown) (unknown) changes to her (units (unknown) date) stool, denies any unknown) dysuria, endorses right flank pain with (unknown) (no (unknown) (unknown) clonazepam 0.5 (units (unknown) date) mg tablet unknown) (Klonopin) 0.5 mg PO BID #0 12/17/16 (unknown) (no (unknown) (unknown) complicated UTI (units (unknown) date) be few weeks ago. unknown) Patient states that she has dull to full (unknown) (no (unknown) (unknown) had 4 visits to (units (unknown) date) the [facility] unknown) Emergency Department, 2 abdominal CTs which were (unknown) (no (unknown) (unknown) has followed up (units (unknown) date) with her primary unknown) care provider about the findings, she states (unknown) (no (unknown) (unknown) helpful. She (units ( unknown) date) states that she unknown) took hydrocodone and something for anxiety this (unknown) (no (unknown) (unknown) morning. (units (unkno wn) date) unknown) (unknown) (no (unknown) (unknown) negative for any (units (unknown) date) acute unknown) abnormality, right upper quadrant ultrasound which showed (unknown) (no (unknown) (unknown) palpation, (units (unk nown) date) denies any unknown) chills, diaphoresis, or dizziness. Patient states that (unknown) (no (unknown) (unknown) repaired when (units ( unknown) date) she was a child, unknown) she states that she does not belching and that (unknown) (no (unknown) (unknown) right upper (units (un known) date) quadrant pain, unknown) abdominal distension, and feeling gassy. Patient (unknown) (no (unknown) (unknown) sertraline 50 mg (units (unknown) date) tablet (Zoloft) unknown) 50 mg PO QDAY #0 12/17/16 (unknown) (no (unknown) (unknown) she can not. She (units (unknown) date) endorses nausea unknown) without vomiting, denies any fever, denies any (unknown) (no (unknown) (unknown) states that she (units (unknown) date) has had abdominal unknown) complaints for the last 3 or 4 weeks. She has (unknown) (no (unknown) (unknown) that her only (units ( unknown) date) significant unknown) abdominal history is an umbilical hernia that was (unknown) (no (unknown) (unknown) they treated her (units (unknown) date) with Dilaudid and unknown) something for her anxiety, and this has been (unknown) (no (unknown) (unknown) upcoming (units (unkno wn) date) transvaginal/pelv unknown) ic ultrasound later this week. She states that she Result panel 3 (unknown) (no (unknown) (unknown) (no value) (units (unk nown) date) unknown) (unknown) (no (unknown) (unknown) (no value) (units (unk nown) date) unknown) (unknown) (no (unknown) (unknown) *Please continue (units (unknown) date) to take your unknown) regular medications as directed. (unknown) (no (unknown) (unknown) Date of Service: (units (unknown) date) 08/06/21 unknown) (unknown) (no (unknown) (unknown) (no value) (units (unk nown) date) unknown) (unknown) (no (unknown) (unknown) 0.5 mg PO BID (units ( unknown) date) Qty: 0 0RF unknown) (unknown) (no (unknown) (unknown) 50 mg PO QDAY (units ( unknown) date) Qty: 0 0RF unknown) (unknown) (no (unknown) (unknown) Allergies (units (unkn own) date) unknown) (unknown) (no (unknown) (unknown) Documented by: (units (unknown) date) unknown) (unknown) (no (unknown) (unknown) ED Orders (units (unkn own) date) unknown) (unknown) (no (unknown) (unknown) Emergency Report (units (unknown) date) unknown) (unknown) (no (unknown) (unknown) Home Medications (units (unknown) date) unknown) (unknown) (no (unknown) (unknown) [facility] (units (unknown) date) [address] [place] [address] unknown) [place] [address] (unknown) (no (unknown) (unknown) Last Admin: (units (un known) date) 08/06/21 17:41 unknown) Dose: 1 mg (unknown) (no (unknown) (unknown) Last Admin: (units (un known) date) 08/06/21 17:41 unknown) Dose: 15 mg (unknown) (no (unknown) (unknown) Last Admin: (units (un known) date) 08/06/21 17:41 unknown) Dose: 4 mg (unknown) (no (unknown) (unknown) Point of Care (units ( unknown) date) Testing unknown) (unknown) (no (unknown) (unknown) Stop: 08/06/21 (units (unknown) date) 17:30 unknown) (unknown) (no (unknown) (unknown) Stop: 08/06/21 (units (unknown) date) 17:34 unknown) (unknown) (no (unknown) (unknown) Urine Dip (units (unkn own) date) unknown) (unknown) (no (unknown) (unknown) Vital Signs - 8 (units (unknown) date) hr unknown) (unknown) (no (unknown) (unknown) [ ] New (units (unkno wn) date) medication unknown) prescriptions sent to your pharmacy: [ ] (unknown) (no (unknown) (unknown) [ ] New (units (unkno wn) date) medication unknown) written as a paper prescription (unknown) (no (unknown) (unknown) [ ] No new (units (unk nown) date) medications given unknown) (unknown) (no (unknown) (unknown) (no value) (units (unk nown) date) unknown) (unknown) (no (unknown) (unknown) clonazepam (units (unk nown) date) [Klonopin] 0.5 MG unknown) tablet (unknown) (no (unknown) (unknown) sertraline (units (unk nown) date) [Zoloft] 50 MG unknown) tablet (unknown) (no (unknown) (unknown) 08/06/21 (units (unkno wn) date) unknown) (unknown) (no (unknown) (unknown) Abdominal pain (units (unknown) date) unknown) (unknown) (no (unknown) (unknown) Medication (units (unk nown) date) Instructions unknown) Recorded Confirmed (unknown) (no (unknown) (unknown) *If you do not (units (unknown) date) have a primary unknown) care provider please contact [phone] to (unknown) (no (unknown) (unknown) *Please follow (units (unknown) date) up with your unknown) primary care provider in 2-3 days, call for an (unknown) (no (unknown) (unknown) *Return to (units (unk nown) date) Emergency unknown) Department if you should have any new, worsening or (unknown) (no (unknown) (unknown) *Temp,ED* (units (unkn own) date) [Primary Care unknown) Provider] - (unknown) (no (unknown) (unknown) *What to do: (units (u nknown) date) unknown) (unknown) (no (unknown) (unknown) *You have been (units (unknown) date) diagnosed with [ unknown) ] (unknown) (no (unknown) (unknown) 08/06/21 17:26 (units (unknown) date) unknown) (unknown) (no (unknown) (unknown) 08/06/21 17:28 (units (unknown) date) unknown) (unknown) (no (unknown) (unknown) 08/06/21 17:36 (units (unknown) date) unknown) (unknown) (no (unknown) (unknown) 17:29 (units (unkno wn) date) unknown) (unknown) (no (unknown) (unknown) [id number] (units (unkno wn) date) unknown) (unknown) (no (unknown) (unknown) ANTIBIOTICS)] (units ( unknown) date) unknown) (unknown) (no (unknown) (unknown) Activity (units (unkno wn) date) Restrictions/Ghulam unknown) tional Instructions: (unknown) (no (unknown) (unknown) Age/Sex: 26 / F (units (unknown) date) unknown) (unknown) (no (unknown) (unknown) Allergy/AdvReac (units (unknown) date) Type Severity unknown) Reaction Status Date / Time (unknown) (no (unknown) (unknown) Antibiotics) (units (u nknown) date) unknown) (unknown) (no (unknown) (unknown) Bedside Urine (units ( unknown) date) Bilirubin unknown) - Negative (unknown) (no (unknown) (unknown) Bedside Urine (units ( unknown) date) Glucose unknown) Negative (unknown) (no (unknown) (unknown) Bedside Urine (units ( unknown) date) Ketone - unknown) Negative (unknown) (no (unknown) (unknown) Bedside Urine (units ( unknown) date) Leukocytes unknown) - Negative (unknown) (no (unknown) (unknown) Bedside Urine (units ( unknown) date) Nitrite - unknown) Negative (unknown) (no (unknown) (unknown) Bedside Urine (units ( unknown) date) Occult Blood unknown) - Negative (unknown) (no (unknown) (unknown) Bedside Urine (units ( unknown) date) Protein - unknown) Negative (unknown) (no (unknown) (unknown) Bedside Urine (units ( unknown) date) Urobilinogen unknown) - Negative (unknown) (no (unknown) (unknown) Bedside Urine pH (units (unknown) date) 6.5 unknown) (unknown) (no (unknown) (unknown) Blood Pressure (units (unknown) date) 151/103 H unknown) 08/06/21 17:29 (unknown) (no (unknown) (unknown) Blood Pressure (units (unknown) date) 151/103 H unknown) (unknown) (no (unknown) (unknown) CBC Auto Diff (units ( unknown) date) [Complete Blood unknown) Count AUTO DIFF] Stat (unknown) (no (unknown) (unknown) CMP (units (unkno wn) date) [Comprehensive unknown) Metabolic Panel] Stat (unknown) (no (unknown) (unknown) Chief Complaint: (units (unknown) date) Abdominal Pain unknown) (unknown) (no (unknown) (unknown) Clinical (units (unkno wn) date) Impression: unknown) (unknown) (no (unknown) (unknown) 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 unknown) Stat (unknown) (no (unknown) (unknown) Course (units (unkno wn) date) unknown) (unknown) (no (unknown) (unknown) : 1995 (units (unknown) date) Acct:[id number] unknown) (unknown) (no (unknown) (unknown) Departure (units (unkn own) date) unknown) (unknown) (no (unknown) (unknown) Discharge Plan (units (unknown) date) unknown) (unknown) (no (unknown) (unknown) Discontinued (units (u nknown) date) Medications unknown) (unknown) (no (unknown) (unknown) ER Physician: (units ( unknown) date) Sheryl Snell unknown) RIDE OPERATOR (unknown) (no (unknown) (unknown) Esterase (units (unkno wn) date) unknown) (unknown) (no (unknown) (unknown) Exam (units (unkno wn) date) unknown) (unknown) (no (unknown) (unknown) General (units (unkno wn) date) unknown) (unknown) (no (unknown) (unknown) HPI - Abdominal (units (unknown) date) Pain unknown) (unknown) (no (unknown) (unknown) HPI narrative: (units (unknown) date) unknown) (unknown) (no (unknown) (unknown) History of (units (unk nown) date) Present Illness unknown) (unknown) (no (unknown) (unknown) Initial Vital (units ( unknown) date) Signs unknown) (unknown) (no (unknown) (unknown) Initial Vital (units ( unknown) date) Signs: unknown) (unknown) (no (unknown) (unknown) Instructions: (units ( unknown) date) DI for Abdominal unknown) Pain-Adult (unknown) (no (unknown) (unknown) Ketorolac (units (unkn own) date) Tromethamine unknown) (Ketorolac 30 Mg/Ml Vial) 15 mg IV NOW ONE (unknown) (no (unknown) (unknown) Lab Data (units (unkno wn) date) unknown) (unknown) (no (unknown) (unknown) Lipase Stat (units (un known) date) unknown) (unknown) (no (unknown) (unknown) Lorazepam (units (unkn own) date) (Lorazepam 0.5 Mg unknown) Tablet) 1 mg PO NOW ONE (unknown) (no (unknown) (unknown) MDM - Abdominal (units (unknown) date) Pain unknown) (unknown) (no (unknown) (unknown) No Action (units (unkn own) date) unknown) (unknown) (no (unknown) (unknown) Non Reactive (units 20 507-0 date) unknown) (unknown) (no (unknown) (unknown) Ondansetron HCl (units (unknown) date) (Ondansetron 4 unknown) Mg/2 Ml Inj) 4 mg IV NOW ONE (unknown) (no (unknown) (unknown) Ordered: (units (unkno wn) date) unknown) (unknown) (no (unknown) (unknown) Orders (units (unkno wn) date) unknown) (unknown) (no (unknown) (unknown) Patient History (units (unknown) date) unknown) (unknown) (no (unknown) (unknown) Patient denies (units (unknown) date) any abdominal unknown) surgeries in the past, states she has PCOS, has an (unknown) (no (unknown) (unknown) Patient: (units (unkno wn) date) Patricia Irvin unknown) MR#: [id number] (unknown) (no (unknown) (unknown) Penicillins (units (un known) date) [PENICILLINS] unknown) Allergy Unknown Unverified 07/11/17 12:47 (unknown) (no (unknown) (unknown) Point of care (units ( unknown) date) testing: unknown) (unknown) (no (unknown) (unknown) Test (units (unknown) date) Results unknown) Negative (unknown) (no (unknown) (unknown) Prescriptions: (units (unknown) date) unknown) (unknown) (no (unknown) (unknown) Pulse Oximetry (units (unknown) date) 100 08/06/21 unknown) 17:29 (unknown) (no (unknown) (unknown) Pulse Oximetry (units (unknown) date) 100 unknown) (unknown) (no (unknown) (unknown) Pulse Rate 87 (units (unknown) date) 08/06/21 17:29 unknown) (unknown) (no (unknown) (unknown) Pulse Rate 87 (units ( unknown) date) unknown) (unknown) (no (unknown) (unknown) Referrals: (units (unk nown) date) unknown) (unknown) (no (unknown) (unknown) Related Data (units (u nknown) date) unknown) (unknown) (no (unknown) (unknown) Respiratory Rate (units (unknown) date) 22 08/06/21 unknown) 17:29 (unknown) (no (unknown) (unknown) Respiratory Rate (units (unknown) date) 22 unknown) (unknown) (no (unknown) (unknown) She states her (units (unknown) date) last menses was unknown) 07/27/21, and her has had a vasectomy. (unknown) (no (unknown) (unknown) Signed By: (units (unk nown) date) unknown) (unknown) (no (unknown) (unknown) Smoking Status: (units (unknown) date) Current every day unknown) smoker (unknown) (no (unknown) (unknown) Social History (units (unknown) date) unknown) (unknown) (no (unknown) (unknown) Stated (units (unkno wn) date) Complaint: ABD unknown) pain post kidney infection (unknown) (no (unknown) (unknown) Sulfa (units (unkno wn) date) (Sulfonamide unknown) Allergy Unknown Unverified 07/11/17 12:47 (unknown) (no (unknown) (unknown) This is a (units (unkn own) date) 26-year-old unknown) female who presents to the emergency department today for (unknown) (no (unknown) (unknown) Time Seen by (units (u nknown) date) Provider: unknown) 08/06/21 17:10 (unknown) (no (unknown) (unknown) US abdomen (units (unk nown) date) limited Stat unknown) (unknown) (no (unknown) (unknown) Urine Specific (units (unknown) date) Union 1.015 unknown) (unknown) (no (unknown) (unknown) Vital Signs (units (un known) date) unknown) (unknown) (no (unknown) (unknown) Vital signs: (units (u nknown) date) unknown) (unknown) (no (unknown) (unknown) Concha Pang, (units (unknown) date) PA-C [Non-Staff] unknown) - (unknown) (no (unknown) (unknown) [SULFA (units (unkno wn) date) (SULFONAMIDE unknown) (unknown) (no (unknown) (unknown) a contracted (units (u nknown) date) gallbladder, and unknown) she endorses ongoing abdominal pain since her (unknown) (no (unknown) (unknown) allergies, she (units (unknown) date) was treated with unknown) ciprofloxacin due to her allergy to (unknown) (no (unknown) (unknown) amoxicillin (units (un known) date) Allergy unknown) Verified 08/06/21 17:41 (unknown) (no (unknown) (unknown) appointment. Let (units (unknown) date) them know you unknown) were seen in the Emergency Department and that we (unknown) (no (unknown) (unknown) asked that you (units (unknown) date) be seen for unknown) follow-up. We will electronically transmit a record (unknown) (no (unknown) (unknown) buspirone [From (units (unknown) date) BUSPAR] Allergy unknown) Unknown Unverified 07/11/17 12:47 (unknown) (no (unknown) (unknown) cephalosporins, (units (unknown) date) penicillin, and unknown) sulfa and states that her symptoms got better. (unknown) (no (unknown) (unknown) changes to her (units (unknown) date) stool, denies any unknown) dysuria, endorses right flank pain with (unknown) (no (unknown) (unknown) clonazepam 0.5 (units (unknown) date) mg tablet unknown) (Klonopin) 0.5 mg PO BID #0 12/17/16 (unknown) (no (unknown) (unknown) complicated UTI (units (unknown) date) be few weeks ago. unknown) Patient states that she has dull to full (unknown) (no (unknown) (unknown) concerning (units (unk nown) date) symptoms, such as unknown) [fever greater than 101F, chills, worsening pain, (unknown) (no (unknown) (unknown) establish care (units (unknown) date) with one of the unknown) [facility] primary care providers. (unknown) (no (unknown) (unknown) had 4 visits to (units (unknown) date) the [facility] unknown) Emergency Department, 2 abdominal [address]s which were (unknown) (no (unknown) (unknown) has followed up (units (unknown) date) with her primary unknown) care provider about the findings, she states (unknown) (no (unknown) (unknown) helpful. She (units ( unknown) date) states that she unknown) took hydrocodone and something for anxiety this (unknown) (no (unknown) (unknown) morning. (units (unkno wn) date) unknown) (unknown) (no (unknown) (unknown) negative for any (units (unknown) date) acute unknown) abnormality, right upper quadrant ultrasound which showed (unknown) (no (unknown) (unknown) of today's note (units (unknown) date) if your PCP is in unknown) our system (unknown) (no (unknown) (unknown) palpation, (units (unk nown) date) denies any unknown) chills, diaphoresis, or dizziness. Patient states that (unknown) (no (unknown) (unknown) persistent (units (unk nown) date) vomiting or other unknown) bothersome symptoms] (unknown) (no (unknown) (unknown) repaired when (units ( unknown) date) she was a child, unknown) she states that she does not belching and that (unknown) (no (unknown) (unknown) right upper (units (un known) date) quadrant pain, unknown) abdominal distension, and feeling gassy. Patient (unknown) (no (unknown) (unknown) sertraline 50 mg (units (unknown) date) tablet (Zoloft) unknown) 50 mg PO QDAY #0 12/17/16 (unknown) (no (unknown) (unknown) she can not. She (units (unknown) date) endorses nausea unknown) without vomiting, denies any fever, denies any (unknown) (no (unknown) (unknown) states that she (units (unknown) date) has had abdominal unknown) complaints for the last 3 or 4 weeks. She has (unknown) (no (unknown) (unknown) that her only (units ( unknown) date) significant unknown) abdominal history is an umbilical hernia that was (unknown) (no (unknown) (unknown) they treated her (units (unknown) date) with Dilaudid and unknown) something for her anxiety, and this has been (unknown) (no (unknown) (unknown) upcoming (units (unkno wn) date) transvaginal/pelv unknown) ic ultrasound later this week. She states that she Result panel 4 (unknown) (no (unknown) (unknown) (no value) (units (unk nown) date) unknown) (unknown) (no (unknown) (unknown) (no value) (units (unk nown) date) unknown) (unknown) (no (unknown) (unknown) *Please continue (units (unknown) date) to take your unknown) regular medications as directed. (unknown) (no (unknown) (unknown) Date of Service: (units (unknown) date) 08/06/21 unknown) (unknown) (no (unknown) (unknown) (no value) (units (unk nown) date) unknown) (unknown) (no (unknown) (unknown) 0.5 mg PO BID (units ( unknown) date) Qty: 0 0RF unknown) (unknown) (no (unknown) (unknown) 50 mg PO QDAY (units ( unknown) date) Qty: 0 0RF unknown) (unknown) (no (unknown) (unknown) Allergies (units (unkn own) date) unknown) (unknown) (no (unknown) (unknown) Documented by: (units (unknown) date) unknown) (unknown) (no (unknown) (unknown) ED Orders (units (unkn own) date) unknown) (unknown) (no (unknown) (unknown) Emergency Report (units (unknown) date) unknown) (unknown) (no (unknown) (unknown) Home Medications (units (unknown) date) unknown) (unknown) (no (unknown) (unknown) [facility] (units (unknown) date) [address] unknown) [place] [address] (unknown) (no (unknown) (unknown) Last Admin: (units (un known) date) 08/06/21 17:41 unknown) Dose: 1 mg (unknown) (no (unknown) (unknown) Last Admin: (units (un known) date) 08/06/21 17:41 unknown) Dose: 15 mg (unknown) (no (unknown) (unknown) Last Admin: (units (un known) date) 08/06/21 17:41 unknown) Dose: 4 mg (unknown) (no (unknown) (unknown) Point of Care (units ( unknown) date) Testing unknown) (unknown) (no (unknown) (unknown) Stop: 08/06/21 (units (unknown) date) 17:30 unknown) (unknown) (no (unknown) (unknown) Stop: 08/06/21 (units (unknown) date) 17:34 unknown) (unknown) (no (unknown) (unknown) Urine Dip (units (unkn own) date) unknown) (unknown) (no (unknown) (unknown) Vital Signs - 8 (units (unknown) date) hr unknown) (unknown) (no (unknown) (unknown) [ ] New (units (unkno wn) date) medication unknown) prescriptions sent to your pharmacy: [ ] (unknown) (no (unknown) (unknown) [ ] New (units (unkno wn) date) medication unknown) written as a paper prescription (unknown) (no (unknown) (unknown) [ ] No new (units (unk nown) date) medications given unknown) (unknown) (no (unknown) (unknown) (no value) (units (unk nown) date) unknown) (unknown) (no (unknown) (unknown) clonazepam (units (unk nown) date) [Klonopin] 0.5 MG unknown) tablet (unknown) (no (unknown) (unknown) sertraline (units (unk nown) date) [Zoloft] 50 MG unknown) tablet (unknown) (no (unknown) (unknown) 08/06/21 (units (unkno wn) date) unknown) (unknown) (no (unknown) (unknown) Abdominal (units (unkn own) date) location: right unknown) upper quadrant Qualified Code(s): R10.11 - Right (unknown) (no (unknown) (unknown) Medication (units (unk nown) date) Instructions unknown) Recorded Confirmed (unknown) (no (unknown) (unknown) *If you do not (units (unknown) date) have a primary unknown) care provider please contact [phone] to (unknown) (no (unknown) (unknown) *Please follow (units (unknown) date) up with your unknown) primary care provider in 2-3 days, call for an (unknown) (no (unknown) (unknown) *Return to (units (unk nown) date) Emergency unknown) Department if you should have any new, worsening or (unknown) (no (unknown) (unknown) *What to do: (units (u nknown) date) unknown) (unknown) (no (unknown) (unknown) *You have been (units (unknown) date) diagnosed with [ unknown) ] (unknown) (no (unknown) (unknown) 08/06/21 17:26 (units (unknown) date) unknown) (unknown) (no (unknown) (unknown) 08/06/21 17:28 (units (unknown) date) unknown) (unknown) (no (unknown) (unknown) 08/06/21 17:36 (units (unknown) date) unknown) (unknown) (no (unknown) (unknown) 17:29 (units (unkno wn) date) unknown) (unknown) (no (unknown) (unknown) [id number] (units (unkno wn) date) unknown) (unknown) (no (unknown) (unknown) ANTIBIOTICS)] (units ( unknown) date) unknown) (unknown) (no (unknown) (unknown) Abdominal pain (units (unknown) date) unknown) (unknown) (no (unknown) (unknown) Activity (units (unkno wn) date) Restrictions/Ghulam unknown) tional Instructions: (unknown) (no (unknown) (unknown) Age/Sex: 26 / F (units (unknown) date) unknown) (unknown) (no (unknown) (unknown) Allergy/AdvReac (units (unknown) date) Type Severity unknown) Reaction Status Date / Time (unknown) (no (unknown) (unknown) Antibiotics) (units (u nknown) date) unknown) (unknown) (no (unknown) (unknown) Bedside Urine (units ( unknown) date) Bilirubin unknown) - Negative (unknown) (no (unknown) (unknown) Bedside Urine (units ( unknown) date) Glucose unknown) Negative (unknown) (no (unknown) (unknown) Bedside Urine (units ( unknown) date) Ketone - unknown) Negative (unknown) (no (unknown) (unknown) Bedside Urine (units ( unknown) date) Leukocytes unknown) - Negative (unknown) (no (unknown) (unknown) Bedside Urine (units ( unknown) date) Nitrite - unknown) Negative (unknown) (no (unknown) (unknown) Bedside Urine (units ( unknown) date) Occult Blood unknown) - Negative (unknown) (no (unknown) (unknown) Bedside Urine (units ( unknown) date) Protein - unknown) Negative (unknown) (no (unknown) (unknown) Bedside Urine (units ( unknown) date) Urobilinogen unknown) - Negative (unknown) (no (unknown) (unknown) Bedside Urine pH (units (unknown) date) 6.5 unknown) (unknown) (no (unknown) (unknown) Blood Pressure (units (unknown) date) 151/103 H unknown) 08/06/21 17:29 (unknown) (no (unknown) (unknown) Blood Pressure (units (unknown) date) 151/103 H unknown) (unknown) (no (unknown) (unknown) CBC Auto Diff (units ( unknown) date) [Complete Blood unknown) Count AUTO DIFF] Stat (unknown) (no (unknown) (unknown) CMP (units (unkno wn) date) [Comprehensive unknown) Metabolic Panel] Stat (unknown) (no (unknown) (unknown) Cardio: denies (units (unknown) date) chest pain, unknown) palpitations, edema (unknown) (no (unknown) (unknown) Chief Complaint: (units (unknown) date) Abdominal Pain unknown) (unknown) (no (unknown) (unknown) Clinical (units (unkno wn) date) Impression: unknown) (unknown) (no (unknown) (unknown) 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 unknown) Stat (unknown) (no (unknown) (unknown) Course (units (unkno wn) date) unknown) (unknown) (no (unknown) (unknown) : 1995 (units (unknown) date) Acct:[id number] unknown) (unknown) (no (unknown) (unknown) Departure (units (unkn own) date) unknown) (unknown) (no (unknown) (unknown) Discharge Plan (units (unknown) date) unknown) (unknown) (no (unknown) (unknown) Discontinued (units (u nknown) date) Medications unknown) (unknown) (no (unknown) (unknown) ER Physician: (units ( unknown) date) Sheryl Snell unknown) RIDE OPERATOR (unknown) (no (unknown) (unknown) Esterase (units (unkno wn) date) unknown) (unknown) (no (unknown) (unknown) Exam (units (unkno wn) date) unknown) (unknown) (no (unknown) (unknown) Eyes: denies (units (u nknown) date) visual changes, unknown) eye pain (unknown) (no (unknown) (unknown) GI: denies (units (unk nown) date) abdominal pain, unknown) nausea, vomiting, or diarrhea (unknown) (no (unknown) (unknown) : denies (units (unk nown) date) dysuria, unknown) hematuria, urinary retention, frequency or incontinence (unknown) (no (unknown) (unknown) General (units (unkno wn) date) unknown) (unknown) (no (unknown) (unknown) General: denies (units (unknown) date) fever, chills, unknown) malaise, sweats, fatigue (unknown) (no (unknown) (unknown) HPI - Abdominal (units (unknown) date) Pain unknown) (unknown) (no (unknown) (unknown) HPI narrative: (units (unknown) date) unknown) (unknown) (no (unknown) (unknown) Head/Neck: (units (unk nown) date) denies headache, unknown) neck pain, dizziness (unknown) (no (unknown) (unknown) History of (units (unk nown) date) Present Illness unknown) (unknown) (no (unknown) (unknown) Initial Vital (units ( unknown) date) Signs unknown) (unknown) (no (unknown) (unknown) Initial Vital (units ( unknown) date) Signs: unknown) (unknown) (no (unknown) (unknown) Instructions: (units ( unknown) date) DI for Abdominal unknown) Pain-Adult (unknown) (no (unknown) (unknown) Ketorolac (units (unkn own) date) Tromethamine unknown) (Ketorolac 30 Mg/Ml Vial) 15 mg IV NOW ONE (unknown) (no (unknown) (unknown) Lab Data (units (unkno wn) date) unknown) (unknown) (no (unknown) (unknown) Lipase Stat (units (un known) date) unknown) (unknown) (no (unknown) (unknown) Lorazepam (units (unkn own) date) (Lorazepam 0.5 Mg unknown) Tablet) 1 mg PO NOW ONE (unknown) (no (unknown) (unknown) MDM - Abdominal (units (unknown) date) Pain unknown) (unknown) (no (unknown) (unknown) MDM Narrative (units ( unknown) date) unknown) (unknown) (no (unknown) (unknown) MSK: denies (units (un known) date) joint pain, unknown) muscle weakness (unknown) (no (unknown) (unknown) Medical decision (units (unknown) date) making narrative: unknown) (unknown) (no (unknown) (unknown) Narrative: (units (unk nown) date) unknown) (unknown) (no (unknown) (unknown) Neuro: denies (units ( unknown) date) numbness, unknown) tingling (unknown) (no (unknown) (unknown) No Action (units (unkn own) date) unknown) (unknown) (no (unknown) (unknown) Ondansetron HCl (units (unknown) date) (Ondansetron 4 unknown) Mg/2 Ml Inj) 4 mg IV NOW ONE (unknown) (no (unknown) (unknown) Ordered: (units (unkno wn) date) unknown) (unknown) (no (unknown) (unknown) Orders (units (unkno wn) date) unknown) (unknown) (no (unknown) (unknown) Patient History (units (unknown) date) unknown) (unknown) (no (unknown) (unknown) Patient denies (units (unknown) date) any abdominal unknown) surgeries in the past, states she has PCOS, has an (unknown) (no (unknown) (unknown) Patient: (units (unkno wn) date) Patricia Irvin unknown) MR#: [id number] (unknown) (no (unknown) (unknown) Penicillins (units (un known) date) [PENICILLINS] unknown) Allergy Unknown Unverified 07/11/17 12:47 (unknown) (no (unknown) (unknown) Point of care (units ( unknown) date) testing: unknown) (unknown) (no (unknown) (unknown) Test (units (unknown) date) Results unknown) Negative (unknown) (no (unknown) (unknown) Prescriptions: (units (unknown) date) unknown) (unknown) (no (unknown) (unknown) Pulse Oximetry (units (unknown) date) 100 08/06/21 unknown) 17:29 (unknown) (no (unknown) (unknown) Pulse Oximetry (units (unknown) date) 100 unknown) (unknown) (no (unknown) (unknown) Pulse Rate 87 (units (unknown) date) 08/06/21 17:29 unknown) (unknown) (no (unknown) (unknown) Pulse Rate 87 (units ( unknown) date) unknown) (unknown) (no (unknown) (unknown) Qualifiers: (units (un known) date) unknown) (unknown) (no (unknown) (unknown) Referrals: (units (unk nown) date) unknown) (unknown) (no (unknown) (unknown) Related Data (units (u nknown) date) unknown) (unknown) (no (unknown) (unknown) Respiratory Rate (units (unknown) date) 22 08/06/21 unknown) 17:29 (unknown) (no (unknown) (unknown) Respiratory Rate (units (unknown) date) 22 unknown) (unknown) (no (unknown) (unknown) Respiratory: (units (u nknown) date) denies dyspnea, unknown) cough, orthopnea (unknown) (no (unknown) (unknown) Review of (units (unkn own) date) Systems unknown) (unknown) (no (unknown) (unknown) She states her (units (unknown) date) last menses was unknown) 07/27/21, and her has had a vasectomy. (unknown) (no (unknown) (unknown) Signed By: (units (unk nown) date) unknown) (unknown) (no (unknown) (unknown) Skin: denies (units (u nknown) date) rash, itching, unknown) skin lesions or other (unknown) (no (unknown) (unknown) Smoking Status: (units (unknown) date) Current every day unknown) smoker (unknown) (no (unknown) (unknown) Social History (units (unknown) date) unknown) (unknown) (no (unknown) (unknown) Stated (units (unkno wn) date) Complaint: ABD unknown) pain post kidney infection (unknown) (no (unknown) (unknown) Sulfa (units (unkno wn) date) (Sulfonamide unknown) Allergy Unknown Unverified 07/11/17 12:47 (unknown) (no (unknown) (unknown) This is a (units (unkn own) date) 26-year-old unknown) female who presents to the emergency department today for (unknown) (no (unknown) (unknown) This is a (units (unkno wn) date) 26-year-old unknown) female who presents to the emergency department with right (unknown) (no (unknown) (unknown) Time Seen by (units (u nknown) date) Provider: unknown) 08/06/21 17:10 (unknown) (no (unknown) (unknown) US abdomen (units (unk nown) date) limited Stat unknown) (unknown) (no (unknown) (unknown) Urine Specific (units (unknown) date) Union 1.015 unknown) (unknown) (no (unknown) (unknown) Vital Signs (units (un known) date) unknown) (unknown) (no (unknown) (unknown) Vital signs: (units (u nknown) date) unknown) (unknown) (no (unknown) (unknown) Concha Pang, (units (unknown) date) PA-C [Non-Staff] unknown) - (unknown) (no (unknown) (unknown) [SULFA (units (unkno wn) date) (SULFONAMIDE unknown) (unknown) (no (unknown) (unknown) a contracted (units (u nknown) date) gallbladder, and unknown) she endorses ongoing abdominal pain since her (unknown) (no (unknown) (unknown) allergies, she (units (unknown) date) was treated with unknown) ciprofloxacin due to her allergy to (unknown) (no (unknown) (unknown) amoxicillin (units (un known) date) Allergy unknown) Verified 08/06/21 17:41 (unknown) (no (unknown) (unknown) any symptoms of (units (unknown) date) dysuria or unknown) urinary frequency. Her last menses was 07/27/2021, (unknown) (no (unknown) (unknown) appointment. Let (units (unknown) date) them know you unknown) were seen in the Emergency Department and that we (unknown) (no (unknown) (unknown) asked that you (units (unknown) date) be seen for unknown) follow-up. We will electronically transmit a record (unknown) (no (unknown) (unknown) buspirone [From (units (unknown) date) BUSPAR] Allergy unknown) Unknown Unverified 07/11/17 12:47 (unknown) (no (unknown) (unknown) cephalosporins, (units (unknown) date) penicillin, and unknown) sulfa and states that her symptoms got better. (unknown) (no (unknown) (unknown) changes to her (units (unknown) date) stool, denies any unknown) dysuria, endorses right flank pain with (unknown) (no (unknown) (unknown) clonazepam 0.5 (units (unknown) date) mg tablet unknown) (Klonopin) 0.5 mg PO BID #0 12/17/16 (unknown) (no (unknown) (unknown) complicated UTI (units (unknown) date) be few weeks ago. unknown) Patient states that she has dull to full (unknown) (no (unknown) (unknown) concerning (units (unk nown) date) symptoms, such as unknown) [fever greater than 101F, chills, worsening pain, (unknown) (no (unknown) (unknown) department (units (unk nown) date) within the last 2 unknown) weeks for some of these similar pains. For (unknown) (no (unknown) (unknown) establish care (units (unknown) date) with one of the unknown) [facility] primary care providers. (unknown) (no (unknown) (unknown) had 4 visits to (units (unknown) date) the [facility] unknown) Emergency Department, [address] which were (unknown) (no (unknown) (unknown) has followed up (units (unknown) date) with her primary unknown) care provider about the findings, she states (unknown) (no (unknown) (unknown) helpful. She (units ( unknown) date) states that she unknown) took hydrocodone and something for anxiety this (unknown) (no (unknown) (unknown) history of (units (unk nown) date) cholelithiasis unknown) and cholecystectomies . (unknown) (no (unknown) (unknown) last 1 week and (units (unknown) date) worsening. She unknown) denies any fever, vomiting, diarrhea, chest (unknown) (no (unknown) (unknown) morning. (units (unkno wn) date) unknown) (unknown) (no (unknown) (unknown) negative for any (units (unknown) date) acute unknown) abnormality, right upper quadrant ultrasound which showed (unknown) (no (unknown) (unknown) of today's note (units (unknown) date) if your PCP is in unknown) our system (unknown) (no (unknown) (unknown) pain, shortness (units (unknown) date) of breath, or unknown) back pain. She endorses being treated for a UTI (unknown) (no (unknown) (unknown) palpation, (units (unk nown) date) denies any unknown) chills, diaphoresis, or dizziness. Patient states that (unknown) (no (unknown) (unknown) persistent (units (unk nown) date) vomiting or other unknown) bothersome symptoms] (unknown) (no (unknown) (unknown) primary care (units (u nknown) date) provider is unknown) Concha Pang, and she has an upcoming transvaginal (unknown) (no (unknown) (unknown) repair as a child (units (unknown) date) but no other unknown) abdominal surgeries. She states she has a family (unknown) (no (unknown) (unknown) repaired when (units ( unknown) date) she was a child, unknown) she states that she does not belching and that (unknown) (no (unknown) (unknown) right upper (units (un known) date) quadrant pain, unknown) abdominal distension, and feeling gassy. Patient (unknown) (no (unknown) (unknown) sertraline 50 mg (units (unknown) date) tablet (Zoloft) unknown) 50 mg PO QDAY #0 12/17/16 (unknown) (no (unknown) (unknown) she can not. She (units (unknown) date) endorses nausea unknown) without vomiting, denies any fever, denies any (unknown) (no (unknown) (unknown) states that she (units (unknown) date) has had abdominal unknown) complaints for the last 3 or 4 weeks. She has (unknown) (no (unknown) (unknown) that her only (units ( unknown) date) significant unknown) abdominal history is an umbilical hernia that was (unknown) (no (unknown) (unknown) they treated her (units (unknown) date) with Dilaudid and unknown) something for her anxiety, and this has been (unknown) (no (unknown) (unknown) two (units (unkno wn) date) abdominal/pelvis unknown) CT scans, and 1 abdominal ultrasound at [facility] emergency (unknown) (no (unknown) (unknown) ultrasound (units (unk nown) date) scheduled this unknown) week. Patient reports having history of PCOS, having (unknown) (no (unknown) (unknown) upcoming (units (unkno wn) date) transvaginal/pelv unknown) ic ultrasound later this week. She states that she (unknown) (no (unknown) (unknown) upper quadrant (units (unknown) date) abdominal pain, unknown) abdominal distension, and feeling gassy for the (unknown) (no (unknown) (unknown) upper quadrant (units (unknown) date) pain unknown) (unknown) (no (unknown) (unknown) with (units (unkno wn) date) ciprofloxacin unknown) about 3 weeks ago, her UTI improved and she has no longer had (unknown) (no (unknown) (unknown) worsening of (units (u nknown) date) these symptoms, unknown) states that she has had umbilical hernia surgery Result panel 5 (unknown) (no (unknown) (unknown) (no value) (units (unk nown) date) unknown) (unknown) (no (unknown) (unknown) (no value) (units (unk nown) date) unknown) (unknown) (no (unknown) (unknown) *Please continue (units (unknown) date) to take your unknown) regular medications as directed. (unknown) (no (unknown) (unknown) Date of Service: (units (unknown) date) 08/06/21 unknown) (unknown) (no (unknown) (unknown) (no value) (units (unk nown) date) unknown) (unknown) (no (unknown) (unknown) 0.5 mg PO BID (units ( unknown) date) Qty: 0 0RF unknown) (unknown) (no (unknown) (unknown) 50 mg PO QDAY (units ( unknown) date) Qty: 0 0RF unknown) (unknown) (no (unknown) (unknown) Allergies (units (unkn own) date) unknown) (unknown) (no (unknown) (unknown) Documented by: (units (unknown) date) unknown) (unknown) (no (unknown) (unknown) ED Orders (units (unkn own) date) unknown) (unknown) (no (unknown) (unknown) Emergency Report (units (unknown) date) unknown) (unknown) (no (unknown) (unknown) Home Medications (units (unknown) date) unknown) (unknown) (no (unknown) (unknown) [facility] (units (unknown) date) [address] unknown) [place] [address] (unknown) (no (unknown) (unknown) Last Admin: (units (un known) date) 08/06/21 17:41 unknown) Dose: 1 mg (unknown) (no (unknown) (unknown) Last Admin: (units (un known) date) 08/06/21 17:41 unknown) Dose: 15 mg (unknown) (no (unknown) (unknown) Last Admin: (units (un known) date) 08/06/21 17:41 unknown) Dose: 4 mg (unknown) (no (unknown) (unknown) Point of Care (units ( unknown) date) Testing unknown) (unknown) (no (unknown) (unknown) Stop: 08/06/21 (units (unknown) date) 17:30 unknown) (unknown) (no (unknown) (unknown) Stop: 08/06/21 (units (unknown) date) 17:34 unknown) (unknown) (no (unknown) (unknown) Urine Dip (units (unkn own) date) unknown) (unknown) (no (unknown) (unknown) Vital Signs - 8 (units (unknown) date) hr unknown) (unknown) (no (unknown) (unknown) [ ] New (units (unkno wn) date) medication unknown) prescriptions sent to your pharmacy: [ ] (unknown) (no (unknown) (unknown) [ ] New (units (unkno wn) date) medication written unknown) as a paper prescription (unknown) (no (unknown) (unknown) [ ] No new (units (unk nown) date) medications given unknown) (unknown) (no (unknown) (unknown) (no value) (units (unk nown) date) unknown) (unknown) (no (unknown) (unknown) clonazepam (units (unk nown) date) [Klonopin] 0.5 MG unknown) tablet (unknown) (no (unknown) (unknown) sertraline (units (unk nown) date) [Zoloft] 50 MG unknown) tablet (unknown) (no (unknown) (unknown) 08/06/21 (units (unkno wn) date) unknown) (unknown) (no (unknown) (unknown) Abdominal (units (unkn own) date) location: right unknown) upper quadrant Qualified Code(s): R10.11 - Right (unknown) (no (unknown) (unknown) Medication (units (unk nown) date) Instructions unknown) Recorded Confirmed (unknown) (no (unknown) (unknown) *If you do not (units (unknown) date) have a primary unknown) care provider please contact [phone] to (unknown) (no (unknown) (unknown) *Please follow up (units (unknown) date) with your primary unknown) care provider in 2-3 days, call for an (unknown) (no (unknown) (unknown) *Return to (units (unk nown) date) Emergency unknown) Department if you should have any new, worsening or (unknown) (no (unknown) (unknown) *What to do: (units (u nknown) date) unknown) (unknown) (no (unknown) (unknown) *You have been (units (unknown) date) diagnosed with [ ] unknown) (unknown) (no (unknown) (unknown) 08/06/21 17:26 (units (unknown) date) unknown) (unknown) (no (unknown) (unknown) 08/06/21 17:28 (units (unknown) date) unknown) (unknown) (no (unknown) (unknown) 08/06/21 17:36 (units (unknown) date) unknown) (unknown) (no (unknown) (unknown) 17:29 (units (unkno wn) date) unknown) (unknown) (no (unknown) (unknown) [id number] (units (unkno wn) date) unknown) (unknown) (no (unknown) (unknown) ANTIBIOTICS)] (units ( unknown) date) unknown) (unknown) (no (unknown) (unknown) Abdominal pain (units (unknown) date) unknown) (unknown) (no (unknown) (unknown) Activity (units (unkno wn) date) Restrictions/Addit unknown) ional Instructions: (unknown) (no (unknown) (unknown) Age/Sex: 26 / F (units (unknown) date) unknown) (unknown) (no (unknown) (unknown) Allergy/AdvReac (units (unknown) date) Type Severity unknown) Reaction Status Date / Time (unknown) (no (unknown) (unknown) Antibiotics) (units (u nknown) date) unknown) (unknown) (no (unknown) (unknown) Bedside Urine (units ( unknown) date) Bilirubin - unknown) Negative (unknown) (no (unknown) (unknown) Bedside Urine (units ( unknown) date) Glucose unknown) Negative (unknown) (no (unknown) (unknown) Bedside Urine (units ( unknown) date) Ketone - unknown) Negative (unknown) (no (unknown) (unknown) Bedside Urine (units ( unknown) date) Leukocytes - unknown) Negative (unknown) (no (unknown) (unknown) Bedside Urine (units ( unknown) date) Nitrite - unknown) Negative (unknown) (no (unknown) (unknown) Bedside Urine (units ( unknown) date) Occult Blood - unknown) Negative (unknown) (no (unknown) (unknown) Bedside Urine (units ( unknown) date) Protein - unknown) Negative (unknown) (no (unknown) (unknown) Bedside Urine (units ( unknown) date) Urobilinogen - unknown) Negative (unknown) (no (unknown) (unknown) Bedside Urine pH (units (unknown) date) 6.5 unknown) (unknown) (no (unknown) (unknown) Blood Pressure (units (unknown) date) 151/103 H unknown) 08/06/21 17:29 (unknown) (no (unknown) (unknown) Blood Pressure (units (unknown) date) 151/103 H unknown) (unknown) (no (unknown) (unknown) CBC Auto Diff (units ( unknown) date) [Complete Blood unknown) Count AUTO DIFF] Stat (unknown) (no (unknown) (unknown) CMP (units (unkno wn) date) [Comprehensive unknown) Metabolic Panel] Stat (unknown) (no (unknown) (unknown) Cardio: denies (units (unknown) date) chest pain, unknown) palpitations, edema (unknown) (no (unknown) (unknown) Cardiovascular: (units (unknown) date) regular rate and unknown) rhythm, no peripheral edema, warm extremities (unknown) (no (unknown) (unknown) Chief Complaint: (units (unknown) date) Abdominal Pain unknown) (unknown) (no (unknown) (unknown) Clinical (units (unkno wn) date) Impression: unknown) (unknown) (no (unknown) (unknown) 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 unknown) Stat (unknown) (no (unknown) (unknown) Course (units (unkno wn) date) unknown) (unknown) (no (unknown) (unknown) : 1995 (units (unknown) date) Acct:[id number] unknown) (unknown) (no (unknown) (unknown) Departure (units (unkn own) date) unknown) (unknown) (no (unknown) (unknown) Discharge Plan (units (unknown) date) unknown) (unknown) (no (unknown) (unknown) Discontinued (units (u nknown) date) Medications unknown) (unknown) (no (unknown) (unknown) ER Physician: (units ( unknown) date) Sheryl Snell unknown) RIDE OPERATOR (unknown) (no (unknown) (unknown) Esterase (units (unkno wn) date) unknown) (unknown) (no (unknown) (unknown) Exam (units (unkno wn) date) unknown) (unknown) (no (unknown) (unknown) Exam Narrative: (units (unknown) date) unknown) (unknown) (no (unknown) (unknown) Eyes: denies (units (u nknown) date) visual changes, unknown) eye pain (unknown) (no (unknown) (unknown) Eyes: pupils (units (u nknown) date) equal round and unknown) reactive, EOMI, conjunctiva normal (unknown) (no (unknown) (unknown) GI: Endorses (units ( unknown) date) right upper unknown) quadrant pain, abdominal distension, nausea, denies (unknown) (no (unknown) (unknown) GI: abdomen soft, (units (unknown) date) nontender to unknown) palpation, nondistended, no masses, no exquisite (unknown) (no (unknown) (unknown) : denies (units (unk nown) date) dysuria, unknown) hematuria, urinary retention, frequency or incontinence, (unknown) (no (unknown) (unknown) General (units (unkno wn) date) unknown) (unknown) (no (unknown) (unknown) General: (units (unkno wn) date) cooperative, unknown) comfortable, in no acute distress, well developed and well (unknown) (no (unknown) (unknown) General: denies (units (unknown) date) fever, chills, unknown) malaise, sweats, fatigue (unknown) (no (unknown) (unknown) HPI - Abdominal (units (unknown) date) Pain unknown) (unknown) (no (unknown) (unknown) HPI narrative: (units (unknown) date) unknown) (unknown) (no (unknown) (unknown) Head/Neck: denies (units (unknown) date) headache, neck unknown) pain, dizziness (unknown) (no (unknown) (unknown) Head: atraumatic, (units (unknown) date) symmetrical facial unknown) expressions (unknown) (no (unknown) (unknown) History of (units (unk nown) date) Present Illness unknown) (unknown) (no (unknown) (unknown) Independently (units ( unknown) date) reviewed vitals unknown) signs and nursing notes. (unknown) (no (unknown) (unknown) Initial Vital (units ( unknown) date) Signs unknown) (unknown) (no (unknown) (unknown) Initial Vital (units ( unknown) date) Signs: unknown) (unknown) (no (unknown) (unknown) Instructions: DI (units (unknown) date) for Abdominal unknown) Pain-Adult (unknown) (no (unknown) (unknown) Ketorolac (units (unkn own) date) Tromethamine unknown) (Ketorolac 30 Mg/Ml Vial) 15 mg IV NOW ONE (unknown) (no (unknown) (unknown) Lab Data (units (unkno wn) date) unknown) (unknown) (no (unknown) (unknown) Lipase Stat (units (un known) date) unknown) (unknown) (no (unknown) (unknown) Lorazepam (units (unkn own) date) (Lorazepam 0.5 Mg unknown) Tablet) 1 mg PO NOW ONE (unknown) (no (unknown) (unknown) MDM - Abdominal (units (unknown) date) Pain unknown) (unknown) (no (unknown) (unknown) MDM Narrative (units ( unknown) date) unknown) (unknown) (no (unknown) (unknown) MSK: denies joint (units (unknown) date) pain, muscle unknown) weakness (unknown) (no (unknown) (unknown) MSK: moves all (units ( unknown) date) extremities, unknown) ambulatory w/steady gait, neurovascularly intact, no (unknown) (no (unknown) (unknown) Medical decision (units (unknown) date) making narrative: unknown) (unknown) (no (unknown) (unknown) Mouth/Throat: (units ( unknown) date) uvula midline, unknown) moist mucus membranes (unknown) (no (unknown) (unknown) Narrative (units (unkn own) date) unknown) (unknown) (no (unknown) (unknown) Narrative: (units (unk nown) date) unknown) (unknown) (no (unknown) (unknown) Neck: supple, (units ( unknown) date) atraumatic, unknown) without lymphadenopathy. (unknown) (no (unknown) (unknown) Neuro: denies (units ( unknown) date) numbness, tingling unknown) (unknown) (no (unknown) (unknown) Neuro: normal (units ( unknown) date) speech and unknown) cognition, A+O x3, normal tone (unknown) (no (unknown) (unknown) No Action (units (unkn own) date) unknown) (unknown) (no (unknown) (unknown) Nose: nares (units (un known) date) patent, no unknown) rhinorrhea (unknown) (no (unknown) (unknown) Ondansetron HCl (units (unknown) date) (Ondansetron 4 unknown) Mg/2 Ml Inj) 4 mg IV NOW ONE (unknown) (no (unknown) (unknown) Ordered: (units (unkno wn) date) unknown) (unknown) (no (unknown) (unknown) Orders (units (unkno wn) date) unknown) (unknown) (no (unknown) (unknown) Patient History (units (unknown) date) unknown) (unknown) (no (unknown) (unknown) Patient denies (units (unknown) date) any abdominal unknown) surgeries in the past, states she has PCOS, has an (unknown) (no (unknown) (unknown) Patient: (units (unkno wn) date) Patricia Irvin unknown) MR#: [id number] (unknown) (no (unknown) (unknown) Penicillins (units (un known) date) [PENICILLINS] unknown) Allergy Unknown Unverified 07/11/17 12:47 (unknown) (no (unknown) (unknown) Point of care (units ( unknown) date) testing: unknown) (unknown) (no (unknown) (unknown) Test (units (unknown) date) Results unknown) Negative (unknown) (no (unknown) (unknown) Prescriptions: (units (unknown) date) unknown) (unknown) (no (unknown) (unknown) Psych: mental (units ( unknown) date) status is grossly unknown) normal, congruent mood, normal affect, pleasant (unknown) (no (unknown) (unknown) Pulse Oximetry (units (unknown) date) 100 08/06/21 unknown) 17:29 (unknown) (no (unknown) (unknown) Pulse Oximetry (units (unknown) date) 100 unknown) (unknown) (no (unknown) (unknown) Pulse Rate 87 (units (unknown) date) 08/06/21 17:29 unknown) (unknown) (no (unknown) (unknown) Pulse Rate 87 (units ( unknown) date) unknown) (unknown) (no (unknown) (unknown) Qualifiers: (units (un known) date) unknown) (unknown) (no (unknown) (unknown) Referrals: (units (unk nown) date) unknown) (unknown) (no (unknown) (unknown) Related Data (units (u nknown) date) unknown) (unknown) (no (unknown) (unknown) Respiratory Rate (units (unknown) date) 08/06/21 unknown) 17:29 (unknown) (no (unknown) (unknown) Respiratory Rate (units (unknown) date) unknown) (unknown) (no (unknown) (unknown) Respiratory: (units (u nknown) date) denies dyspnea, unknown) cough, orthopnea (unknown) (no (unknown) (unknown) Respiratory: (units (u nknown) date) normal effort, unknown) able to speak in complete sentences, no audible (unknown) (no (unknown) (unknown) Review of Systems (units (unknown) date) unknown) (unknown) (no (unknown) (unknown) She states her (units (unknown) date) last menses was unknown) 07/27/21, and her has had a vasectomy. (unknown) (no (unknown) (unknown) Signed By: (units (unk nown) date) unknown) (unknown) (no (unknown) (unknown) Skin: brisk (units (un known) date) capillary refill, unknown) no rash, no erythema (unknown) (no (unknown) (unknown) Skin: denies (units (u nknown) date) rash, itching, unknown) skin lesions or other (unknown) (no (unknown) (unknown) Smoking Status: (units (unknown) date) Current every day unknown) smoker (unknown) (no (unknown) (unknown) Social History (units (unknown) date) (Reviewed 08/06/21 unknown) @ 18:[address] [facility]) (unknown) (no (unknown) (unknown) Stated Complaint: (units (unknown) date) ABD pain post unknown) kidney infection (unknown) (no (unknown) (unknown) Sulfa (units (unkno wn) date) (Sulfonamide unknown) Allergy Unknown Unverified 07/11/17 12:47 (unknown) (no (unknown) (unknown) This is a (units (unkn own) date) 26-year-old female unknown) who presents to the emergency department today for (unknown) (no (unknown) (unknown) This is a (units (unkno wn) date) 26-year-old female unknown) who presents to the emergency department with right (unknown) (no (unknown) (unknown) Time Seen by (units (u nknown) date) Provider: 08/06/21 unknown) 17:10 (unknown) (no (unknown) (unknown) US abdomen (units (unk nown) date) limited Stat unknown) (unknown) (no (unknown) (unknown) Urine Specific (units (unknown) date) Union 1.015 unknown) (unknown) (no (unknown) (unknown) Vital Signs (units (un known) date) unknown) (unknown) (no (unknown) (unknown) Vital signs: (units (u nknown) date) unknown) (unknown) (no (unknown) (unknown) Concha Pang, (units (unknown) date) PA-C [Non-Staff] - unknown) (unknown) (no (unknown) (unknown) [SULFA (units (unkno wn) date) (SULFONAMIDE unknown) (unknown) (no (unknown) (unknown) a contracted (units (u nknown) date) gallbladder, and unknown) she endorses ongoing abdominal pain since her (unknown) (no (unknown) (unknown) allergies, she (units (unknown) date) was treated with unknown) ciprofloxacin due to her allergy to (unknown) (no (unknown) (unknown) amoxicillin (units (un known) date) Allergy Verified unknown) 08/06/21 17:41 (unknown) (no (unknown) (unknown) and cooperative (units (unknown) date) unknown) (unknown) (no (unknown) (unknown) any symptoms of (units (unknown) date) dysuria or urinary unknown) frequency. Her last menses was 07/27/2021, (unknown) (no (unknown) (unknown) appointment. Let (units (unknown) date) them know you were unknown) seen in the Emergency Department and that we (unknown) (no (unknown) (unknown) asked that you be (units (unknown) date) seen for unknown) follow-up. We will electronically transmit a record (unknown) (no (unknown) (unknown) buspirone [From (units (unknown) date) BUSPAR] Allergy unknown) Unknown Unverified 07/11/17 12:47 (unknown) (no (unknown) (unknown) cephalosporins, (units (unknown) date) penicillin, and unknown) sulfa and states that her symptoms got better. (unknown) (no (unknown) (unknown) changes to her (units (unknown) date) stool, denies any unknown) dysuria, endorses right flank pain with (unknown) (no (unknown) (unknown) clonazepam 0.5 mg (units (unknown) date) tablet (Klonopin) unknown) 0.5 mg PO BID #0 12/17/16 (unknown) (no (unknown) (unknown) complicated UTI (units (unknown) date) be few weeks ago. unknown) Patient states that she has dull to full (unknown) (no (unknown) (unknown) concerning (units (unk nown) date) symptoms, such as unknown) [fever greater than 101F, chills, worsening pain, (unknown) (no (unknown) (unknown) denies any (units (unk nown) date) abnormal vaginal unknown) discharge (unknown) (no (unknown) (unknown) department within (units (unknown) date) the last 2 weeks unknown) for some of these similar pains. For (unknown) (no (unknown) (unknown) establish care (units (unknown) date) with one of the unknown) [facility] primary care providers. (unknown) (no (unknown) (unknown) groomed (units (unkno wn) date) unknown) (unknown) (no (unknown) (unknown) had 4 visits to (units (unknown) date) the [facility] unknown) Emergency Department, [address] which were (unknown) (no (unknown) (unknown) has followed up (units (unknown) date) with her primary unknown) care provider about the findings, she states (unknown) (no (unknown) (unknown) helpful. She (units ( unknown) date) states that she unknown) took hydrocodone and something for anxiety this (unknown) (no (unknown) (unknown) history of (units (unk nown) date) cholelithiasis and unknown) cholecystectomies. (unknown) (no (unknown) (unknown) last 1 week and (units (unknown) date) worsening. She unknown) denies any fever, vomiting, diarrhea, chest (unknown) (no (unknown) (unknown) morning. (units (unkno wn) date) unknown) (unknown) (no (unknown) (unknown) negative for any (units (unknown) date) acute abnormality, unknown) right upper quadrant ultrasound which showed (unknown) (no (unknown) (unknown) of today's note (units (unknown) date) if your PCP is in unknown) our system (unknown) (no (unknown) (unknown) pain, shortness (units (unknown) date) of breath, or back unknown) pain. She endorses being treated for a UTI (unknown) (no (unknown) (unknown) palpation, denies (units (unknown) date) any chills, unknown) diaphoresis, or dizziness. Patient states that (unknown) (no (unknown) (unknown) persistent (units (unk nown) date) vomiting or other unknown) bothersome symptoms] (unknown) (no (unknown) (unknown) primary care (units (u nknown) date) provider is unknown) Concha Pang, and she has an upcoming transvaginal (unknown) (no (unknown) (unknown) repair as a child (units (unknown) date) but no other unknown) abdominal surgeries. She states she has a family (unknown) (no (unknown) (unknown) repaired when she (units (unknown) date) was a child, she unknown) states that she does not belching and that (unknown) (no (unknown) (unknown) right upper (units (un known) date) quadrant pain, unknown) abdominal distension, and feeling gassy. Patient (unknown) (no (unknown) (unknown) sertraline 50 mg (units (unknown) date) tablet (Zoloft) 50 unknown) mg PO QDAY #0 12/17/16 (unknown) (no (unknown) (unknown) she can not. She (units (unknown) date) endorses nausea unknown) without vomiting, denies any fever, denies any (unknown) (no (unknown) (unknown) states that she (units (unknown) date) has had abdominal unknown) complaints for the last 3 or 4 weeks. She has (unknown) (no (unknown) (unknown) tenderness with (units (unknown) date) exam, without unknown) guarding or rebound. Right CVA tenderness (unknown) (no (unknown) (unknown) that her only (units ( unknown) date) significant unknown) abdominal history is an umbilical hernia that was (unknown) (no (unknown) (unknown) they treated her (units (unknown) date) with Dilaudid and unknown) something for her anxiety, and this has been (unknown) (no (unknown) (unknown) two (units (unkno wn) date) abdominal/pelvis unknown) CT scans, and 1 abdominal ultrasound at [facility] emergency (unknown) (no (unknown) (unknown) ultrasound (units (unk nown) date) scheduled this unknown) week. Patient reports having history of PCOS, having (unknown) (no (unknown) (unknown) upcoming (units (unkno wn) date) transvaginal/pelvi unknown) c ultrasound later this week. She states that she (unknown) (no (unknown) (unknown) upper quadrant (units (unknown) date) abdominal pain, unknown) abdominal distension, and feeling gassy for the (unknown) (no (unknown) (unknown) upper quadrant (units (unknown) date) pain unknown) (unknown) (no (unknown) (unknown) vomiting, (units (unkn own) date) constipation, or unknown) diarrhea. (unknown) (no (unknown) (unknown) weakness (units (unkno wn) date) unknown) (unknown) (no (unknown) (unknown) wheezing, (units (unkn own) date) stridor, or rales. unknown) No retractions or tachypnea. (unknown) (no (unknown) (unknown) with ciprofloxacin (units (unknown) date) about 3 weeks ago, unknown) her UTI improved and she has no longer had (unknown) (no (unknown) (unknown) worsening of (units (u nknown) date) these symptoms, unknown) states that she has had umbilical hernia surgery Result panel 6 (unknown) (no date) (unknown) (unknown) 0.7 % (unkn own) (unknown) (no date) (unknown) (unknown) 100 /uL (unkn own) (unknown) (no date) (unknown) (unknown) 12.7 % (unkn own) (unknown) (no date) (unknown) (unknown) 13.7 g/dL (unkn own) (unknown) (no date) (unknown) (unknown) 2300 /uL (unkn own) (unknown) (no date) (unknown) (unknown) 29.5 % (unkn own) (unknown) (no date) (unknown) (unknown) 292 X10 3/uL (unkn own) (unknown) (no date) (unknown) (unknown) 30.6 PG (unkn own) (unknown) (no date) (unknown) (unknown) 33.2 % (unkn own) (unknown) (no date) (unknown) (unknown) 4.46 X10 6/uL (unkn own) (unknown) (no date) (unknown) (unknown) 400 /uL (unkn own) (unknown) (no date) (unknown) (unknown) 400 /uL (unkn own) (unknown) (no date) (unknown) (unknown) 41.1 % (unkn own) (unknown) (no date) (unknown) (unknown) 4700 /uL (unkn own) (unknown) (no date) (unknown) (unknown) 5.5 % (unkn own) (unknown) (no date) (unknown) (unknown) 5.5 % (unkn own) (unknown) (no date) (unknown) (unknown) 58.8 % (unkn own) (unknown) (no date) (unknown) (unknown) 7.9 X10 3/uL (unkn own) (unknown) (no date) (unknown) (unknown) 92.2 fL (unkn own) Result panel 7 (unknown) (no date) (unknown) (unknown) 196 U/L (unkn own) Result panel 8 (unknown) (no (unknown) (unknown) (no value) (units (unk nown) date) unknown) (unknown) (no (unknown) (unknown) *Please continue (units (unknown) date) to take your unknown) regular medications as directed. (unknown) (no (unknown) (unknown) Date of Service: (units (unknown) date) 08/06/21 unknown) (unknown) (no (unknown) (unknown) (no value) (units (unk nown) date) unknown) (unknown) (no (unknown) (unknown) 0.5 mg PO BID (units ( unknown) date) Qty: 0 0RF unknown) (unknown) (no (unknown) (unknown) 08/06/21 17:50 (units (unknown) date) unknown) (unknown) (no (unknown) (unknown) 50 mg PO QDAY (units ( unknown) date) Qty: 0 0RF unknown) (unknown) (no (unknown) (unknown) Allergies (units (unkn own) date) unknown) (unknown) (no (unknown) (unknown) Documented by: (units (unknown) date) unknown) (unknown) (no (unknown) (unknown) ED Orders (units (unkn own) date) unknown) (unknown) (no (unknown) (unknown) Emergency Report (units (unknown) date) unknown) (unknown) (no (unknown) (unknown) Home Medications (units (unknown) date) unknown) (unknown) (no (unknown) (unknown) [facility] (units (unknown) date) [address] [place] [address] unknown) [place] [address] (unknown) (no (unknown) (unknown) Lab Results (units (un known) date) unknown) (unknown) (no (unknown) (unknown) Last Admin: (units (un known) date) 08/06/21 17:41 unknown) Dose: 1 mg (unknown) (no (unknown) (unknown) Last Admin: (units (un known) date) 08/06/21 17:41 unknown) Dose: 15 mg (unknown) (no (unknown) (unknown) Last Admin: (units (un known) date) 08/06/21 17:41 unknown) Dose: 4 mg (unknown) (no (unknown) (unknown) Point of Care (units ( unknown) date) Testing unknown) (unknown) (no (unknown) (unknown) Stop: 08/06/21 (units (unknown) date) 17:30 unknown) (unknown) (no (unknown) (unknown) Stop: 08/06/21 (units (unknown) date) 17:34 unknown) (unknown) (no (unknown) (unknown) Stop: 08/06/21 (units (unknown) date) 18:09 unknown) (unknown) (no (unknown) (unknown) Urine Dip (units (unkn own) date) unknown) (unknown) (no (unknown) (unknown) Vital Signs - 8 (units (unknown) date) hr unknown) (unknown) (no (unknown) (unknown) [ ] New (units (unkno wn) date) medication unknown) prescriptions sent to your pharmacy: [ ] (unknown) (no (unknown) (unknown) [ ] New (units (unkno wn) date) medication written unknown) as a paper prescription (unknown) (no (unknown) (unknown) [ ] No new (units (unk nown) date) medications given unknown) (unknown) (no (unknown) (unknown) (no value) (units (unk nown) date) unknown) (unknown) (no (unknown) (unknown) 08/06/21 (units (unkno wn) date) Range/Units unknown) (unknown) (no (unknown) (unknown) 17:50 (units (unkno wn) date) unknown) (unknown) (no (unknown) (unknown) clonazepam (units (unk nown) date) [Klonopin] 0.5 MG unknown) tablet (unknown) (no (unknown) (unknown) sertraline (units (unk nown) date) [Zoloft] 50 MG unknown) tablet (unknown) (no (unknown) (unknown) 08/06/21 (units (unkno wn) date) unknown) (unknown) (no (unknown) (unknown) Abdominal (units (unkn own) date) location: right unknown) upper quadrant Qualified Code(s): R10.11 - Right (unknown) (no (unknown) (unknown) Medication (units (unk nown) date) Instructions unknown) Recorded Confirmed (unknown) (no (unknown) (unknown) any symptoms of (units (unknown) date) dysuria or urinary unknown) frequency. Her last menses was 07/27/2021, (unknown) (no (unknown) (unknown) history of (units (unk nown) date) cholelithiasis and unknown) cholecystectomies. (unknown) (no (unknown) (unknown) upper quadrant (units (unknown) date) abdominal pain, unknown) abdominal distension, and feeling gassy for the (unknown) (no (unknown) (unknown) *If you do not (units (unknown) date) have a primary unknown) care provider please contact [phone] to (unknown) (no (unknown) (unknown) *Please follow up (units (unknown) date) with your primary unknown) care provider in 2-3 days, call for an (unknown) (no (unknown) (unknown) *Return to (units (unk nown) date) Emergency unknown) Department if you should have any new, worsening or (unknown) (no (unknown) (unknown) *What to do: (units (u nknown) date) unknown) (unknown) (no (unknown) (unknown) *You have been (units (unknown) date) diagnosed with [ ] unknown) (unknown) (no (unknown) (unknown) 08/06/21 17:28 (units (unknown) date) unknown) (unknown) (no (unknown) (unknown) 08/06/21 17:36 (units (unknown) date) unknown) (unknown) (no (unknown) (unknown) 08/06/21 17:50 (units (unknown) date) unknown) (unknown) (no (unknown) (unknown) 17:29 08/06/21 (units (unknown) date) unknown) (unknown) (no (unknown) (unknown) 17:51 (units (unkno wn) date) unknown) (unknown) (no (unknown) (unknown) [id number] (units (unkno wn) date) unknown) (unknown) (no (unknown) (unknown) ANTIBIOTICS)] (units ( unknown) date) unknown) (unknown) (no (unknown) (unknown) Abdominal pain (units (unknown) date) unknown) (unknown) (no (unknown) (unknown) Activity (units (unkno wn) date) Restrictions/Addit unknown) ional Instructions: (unknown) (no (unknown) (unknown) Age/Sex: 26 / F (units (unknown) date) unknown) (unknown) (no (unknown) (unknown) Allergy/AdvReac (units (unknown) date) Type Severity unknown) Reaction Status Date / Time (unknown) (no (unknown) (unknown) Antibiotics) (units (u nknown) date) unknown) (unknown) (no (unknown) (unknown) Baso # (Auto) (units ( unknown) date) 100 (0-100) /uL unknown) (unknown) (no (unknown) (unknown) Baso % (Auto) (units ( unknown) date) 0.7 (0-2) % unknown) (unknown) (no (unknown) (unknown) Bedside Urine (units ( unknown) date) Bilirubin - unknown) Negative (unknown) (no (unknown) (unknown) Bedside Urine (units ( unknown) date) Glucose unknown) Negative (unknown) (no (unknown) (unknown) Bedside Urine (units ( unknown) date) Ketone - unknown) Negative (unknown) (no (unknown) (unknown) Bedside Urine (units ( unknown) date) Leukocytes - unknown) Negative (unknown) (no (unknown) (unknown) Bedside Urine (units ( unknown) date) Nitrite - unknown) Negative (unknown) (no (unknown) (unknown) Bedside Urine (units ( unknown) date) Occult Blood - unknown) Negative (unknown) (no (unknown) (unknown) Bedside Urine (units ( unknown) date) Protein - unknown) Negative (unknown) (no (unknown) (unknown) Bedside Urine (units ( unknown) date) Urobilinogen - unknown) Negative (unknown) (no (unknown) (unknown) Bedside Urine pH (units (unknown) date) 6.5 unknown) (unknown) (no (unknown) (unknown) Blood Pressure (units (unknown) date) 151/103 H unknown) 08/06/21 17:29 (unknown) (no (unknown) (unknown) Blood Pressure (units (unknown) date) 151/103 H unknown) (unknown) (no (unknown) (unknown) CBC Auto Diff (units ( unknown) date) [Complete Blood unknown) Count AUTO DIFF] Stat (unknown) (no (unknown) (unknown) CMP (units (unkno wn) date) [Comprehensive unknown) Metabolic Panel] Stat (unknown) (no (unknown) (unknown) Cardio: denies (units (unknown) date) chest pain, unknown) palpitations, edema (unknown) (no (unknown) (unknown) Cardiovascular: (units (unknown) date) regular rate and unknown) rhythm, no peripheral edema, warm extremities (unknown) (no (unknown) (unknown) Chief Complaint: (units (unknown) date) Abdominal Pain unknown) (unknown) (no (unknown) (unknown) Clinical (units (unkno wn) date) Impression: unknown) (unknown) (no (unknown) (unknown) 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 unknown) Stat (unknown) (no (unknown) (unknown) Course (units (unkno wn) date) unknown) (unknown) (no (unknown) (unknown) : 1995 (units (unknown) date) Acct:[id number] unknown) (unknown) (no (unknown) (unknown) Departure (units (unkn own) date) unknown) (unknown) (no (unknown) (unknown) Discharge Plan (units (unknown) date) unknown) (unknown) (no (unknown) (unknown) Discontinued (units (u nknown) date) Medications unknown) (unknown) (no (unknown) (unknown) ER Physician: (units ( unknown) date) Sheryl Snell unknown) RIDE OPERATOR (unknown) (no (unknown) (unknown) Eos # (Auto) 400 (units (unknown) date) (0-450) /uL unknown) (unknown) (no (unknown) (unknown) Eos % (Auto) 5.5 (units (unknown) date) H (2-4) % unknown) (unknown) (no (unknown) (unknown) Esterase (units (unkno wn) date) unknown) (unknown) (no (unknown) (unknown) Exam (units (unkno wn) date) unknown) (unknown) (no (unknown) (unknown) Exam Narrative: (units (unknown) date) unknown) (unknown) (no (unknown) (unknown) Eyes: denies (units (u nknown) date) visual changes, unknown) eye pain (unknown) (no (unknown) (unknown) Eyes: pupils (units (u nknown) date) equal round and unknown) reactive, EOMI, conjunctiva normal (unknown) (no (unknown) (unknown) GI: Endorses (units ( unknown) date) right upper unknown) quadrant pain, abdominal distension, nausea, denies (unknown) (no (unknown) (unknown) GI: abdomen soft, (units (unknown) date) nontender to unknown) palpation, nondistended, no masses, no exquisite (unknown) (no (unknown) (unknown) : denies (units (unk nown) date) dysuria, unknown) hematuria, urinary retention, frequency or incontinence, (unknown) (no (unknown) (unknown) General (units (unkno wn) date) unknown) (unknown) (no (unknown) (unknown) General: (units (unkno wn) date) cooperative, unknown) comfortable, in no acute distress, well developed and well (unknown) (no (unknown) (unknown) General: denies (units (unknown) date) fever, chills, unknown) malaise, sweats, fatigue (unknown) (no (unknown) (unknown) GenericComposite[ (units (unknown) date) Plt Count 292 unknown) (150-400) X10^3/uL ] (unknown) (no (unknown) (unknown) GenericComposite[ (units (unknown) date) RBC 4.46 unknown) (4.0-5.2) X10^6/uL ] (unknown) (no (unknown) (unknown) GenericComposite[ (units (unknown) date) WBC 7.9 unknown) (4.5-11.0) X10^3/uL ] (unknown) (no (unknown) (unknown) HPI - Abdominal (units (unknown) date) Pain unknown) (unknown) (no (unknown) (unknown) HPI narrative: (units (unknown) date) unknown) (unknown) (no (unknown) (unknown) Hct 41.1 (units (unkn own) date) (36-46) % unknown) (unknown) (no (unknown) (unknown) Head/Neck: denies (units (unknown) date) headache, neck unknown) pain, dizziness (unknown) (no (unknown) (unknown) Head: atraumatic, (units (unknown) date) symmetrical facial unknown) expressions (unknown) (no (unknown) (unknown) Hgb 13.7 (units (unkn own) date) (12.0-16.0) g/dL unknown) (unknown) (no (unknown) (unknown) History of (units (unk nown) date) Present Illness unknown) (unknown) (no (unknown) (unknown) Independently (units ( unknown) date) reviewed vitals unknown) signs and nursing notes. (unknown) (no (unknown) (unknown) Initial Vital (units ( unknown) date) Signs unknown) (unknown) (no (unknown) (unknown) Initial Vital (units ( unknown) date) Signs: unknown) (unknown) (no (unknown) (unknown) Instructions: DI (units (unknown) date) for Abdominal unknown) Pain-Adult (unknown) (no (unknown) (unknown) Ketorolac (units (unkn own) date) Tromethamine unknown) (Ketorolac 30 Mg/Ml Vial) 15 mg IV NOW ONE (unknown) (no (unknown) (unknown) Lab Data (units (unkno wn) date) unknown) (unknown) (no (unknown) (unknown) Labs: (units (unkno wn) date) unknown) (unknown) (no (unknown) (unknown) Lipase Stat (units (un known) date) unknown) (unknown) (no (unknown) (unknown) Lorazepam (units (unkn own) date) (Lorazepam 0.5 Mg unknown) Tablet) 1 mg PO NOW ONE (unknown) (no (unknown) (unknown) Lymph # (Auto) (units (unknown) date) 2300 ([id number]) unknown) /uL (unknown) (no (unknown) (unknown) Lymph % (Auto) (units (unknown) date) 29.5 (25-40) % unknown) (unknown) (no (unknown) (unknown) MCH 30.6 (units (unkn own) date) (26-34) PG unknown) (unknown) (no (unknown) (unknown) MCHC 33.2 (units (unk nown) date) (30-36) % unknown) (unknown) (no (unknown) (unknown) MCV 92.2 (units (unkn own) date) (80-100) fL unknown) (unknown) (no (unknown) (unknown) MDM - Abdominal (units (unknown) date) Pain unknown) (unknown) (no (unknown) (unknown) MDM Narrative (units ( unknown) date) unknown) (unknown) (no (unknown) (unknown) MSK: denies joint (units (unknown) date) pain, muscle unknown) weakness (unknown) (no (unknown) (unknown) MSK: moves all (units ( unknown) date) extremities, unknown) ambulatory w/steady gait, neurovascularly intact, no (unknown) (no (unknown) (unknown) Medical decision (units (unknown) date) making narrative: unknown) (unknown) (no (unknown) (unknown) [place] # (Auto) (units ( unknown) date) 400 (0-900) /uL unknown) (unknown) (no (unknown) (unknown) [place] % (Auto) (units ( unknown) date) 5.5 (3-14) % unknown) (unknown) (no (unknown) (unknown) Mouth/Throat: (units ( unknown) date) uvula midline, unknown) moist mucus membranes (unknown) (no (unknown) (unknown) Narrative (units (unkn own) date) unknown) (unknown) (no (unknown) (unknown) Narrative: (units (unk nown) date) unknown) (unknown) (no (unknown) (unknown) Neck: supple, (units ( unknown) date) atraumatic, unknown) without lymphadenopathy. (unknown) (no (unknown) (unknown) Neuro: denies (units ( unknown) date) numbness, tingling unknown) (unknown) (no (unknown) (unknown) Neuro: normal (units ( unknown) date) speech and unknown) cognition, A+O x3, normal tone (unknown) (no (unknown) (unknown) Neut # (Auto) (units ( unknown) date) 4700 ([id number]) unknown) /uL (unknown) (no (unknown) (unknown) Neut % (Auto) (units ( unknown) date) 58.8 (50-75) % unknown) (unknown) (no (unknown) (unknown) No Action (units (unkn own) date) unknown) (unknown) (no (unknown) (unknown) Nose: nares (units (un known) date) patent, no unknown) rhinorrhea (unknown) (no (unknown) (unknown) Ondansetron HCl (units (unknown) date) (Ondansetron 4 unknown) Mg/2 Ml Inj) 4 mg IV NOW ONE (unknown) (no (unknown) (unknown) Ordered: (units (unkno wn) date) unknown) (unknown) (no (unknown) (unknown) Orders (units (unkno wn) date) unknown) (unknown) (no (unknown) (unknown) Pantoprazole (units (u nknown) date) Sodium unknown) (Pantoprazole 40 Mg Vial) 20 mg IV NOW ONE (unknown) (no (unknown) (unknown) Patient History (units (unknown) date) unknown) (unknown) (no (unknown) (unknown) Patient denies (units (unknown) date) any abdominal unknown) surgeries in the past, states she has PCOS, has an (unknown) (no (unknown) (unknown) Patient: (units (unkno wn) date) Patricia Irvin unknown) MR#: [id number] (unknown) (no (unknown) (unknown) Penicillins (units (un known) date) [PENICILLINS] unknown) Allergy Unknown Unverified 07/11/17 12:47 (unknown) (no (unknown) (unknown) Point of care (units ( unknown) date) testing: unknown) (unknown) (no (unknown) (unknown) Test (units (unknown) date) Results unknown) Negative (unknown) (no (unknown) (unknown) Prescriptions: (units (unknown) date) unknown) (unknown) (no (unknown) (unknown) Psych: mental (units ( unknown) date) status is grossly unknown) normal, congruent mood, normal affect, pleasant (unknown) (no (unknown) (unknown) Pulse Oximetry (units (unknown) date) 100 08/06/21 unknown) 17:29 (unknown) (no (unknown) (unknown) Pulse Oximetry (units (unknown) date) 100 99 unknown) (unknown) (no (unknown) (unknown) Pulse Rate 87 (units (unknown) date) 08/06/21 17:29 unknown) (unknown) (no (unknown) (unknown) Pulse Rate 87 87 (units (unknown) date) unknown) (unknown) (no (unknown) (unknown) Qualifiers: (units (un known) date) unknown) (unknown) (no (unknown) (unknown) RDW 12.7 (units (unkn own) date) (11.6-14.8) % unknown) (unknown) (no (unknown) (unknown) Referrals: (units (unk nown) date) unknown) (unknown) (no (unknown) (unknown) Related Data (units (u nknown) date) unknown) (unknown) (no (unknown) (unknown) Respiratory Rate (units (unknown) date) 08/06/21 unknown) 17:29 (unknown) (no (unknown) (unknown) Respiratory Rate (units (unknown) date) unknown) (unknown) (no (unknown) (unknown) Respiratory: (units (u nknown) date) denies dyspnea, unknown) cough, orthopnea (unknown) (no (unknown) (unknown) Respiratory: (units (u nknown) date) normal effort, unknown) able to speak in complete sentences, no audible (unknown) (no (unknown) (unknown) Result diagrams: (units (unknown) date) unknown) (unknown) (no (unknown) (unknown) Review of Systems (units (unknown) date) unknown) (unknown) (no (unknown) (unknown) She states her (units (unknown) date) last menses was unknown) 07/27/21, and her has had a vasectomy. (unknown) (no (unknown) (unknown) Signed By: (units (unk nown) date) unknown) (unknown) (no (unknown) (unknown) Skin: brisk (units (un known) date) capillary refill, unknown) no rash, no erythema (unknown) (no (unknown) (unknown) Skin: denies (units (u nknown) date) rash, itching, unknown) skin lesions or other (unknown) (no (unknown) (unknown) Smoking Status: (units (unknown) date) Current every day unknown) smoker (unknown) (no (unknown) (unknown) Social History (units (unknown) date) (Reviewed 08/06/21 unknown) @ 18:05 by ARVIN [place]) (unknown) (no (unknown) (unknown) Stated Complaint: (units (unknown) date) ABD pain post unknown) kidney infection (unknown) (no (unknown) (unknown) Sulfa (units (unkno wn) date) (Sulfonamide unknown) Allergy Unknown Unverified 07/11/17 12:47 (unknown) (no (unknown) (unknown) This is a (units (unkn own) date) 26-year-old female unknown) who presents to the emergency department today for (unknown) (no (unknown) (unknown) This is a (units (unkno wn) date) 26-year-old female unknown) who presents to the emergency department with right (unknown) (no (unknown) (unknown) Time Seen by (units (u nknown) date) Provider: 08/06/21 unknown) 17:10 (unknown) (no (unknown) (unknown) US abdomen (units (unk nown) date) limited Stat unknown) (unknown) (no (unknown) (unknown) Urine Specific (units (unknown) date) [place] 1.015 unknown) (unknown) (no (unknown) (unknown) Vital Signs (units (un known) date) unknown) (unknown) (no (unknown) (unknown) Vital signs: (units (u nknown) date) unknown) (unknown) (no (unknown) (unknown) Concha Pang, (units (unknown) date) PA-C [Non-Staff] - unknown) (unknown) (no (unknown) (unknown) [Embedded Image (units (unknown) date) Not Available] unknown) (unknown) (no (unknown) (unknown) [SULFA (units (unkno wn) date) (SULFONAMIDE unknown) (unknown) (no (unknown) (unknown) a contracted (units (u nknown) date) gallbladder, and unknown) she endorses ongoing abdominal pain since her (unknown) (no (unknown) (unknown) allergies, she (units (unknown) date) was treated with unknown) ciprofloxacin due to her allergy to (unknown) (no (unknown) (unknown) amoxicillin (units (un known) date) Allergy Verified unknown) 08/06/21 17:41 (unknown) (no (unknown) (unknown) and cooperative (units (unknown) date) unknown) (unknown) (no (unknown) (unknown) appointment. Let (units (unknown) date) them know you were unknown) seen in the Emergency Department and that we (unknown) (no (unknown) (unknown) asked that you be (units (unknown) date) seen for unknown) follow-up. We will electronically transmit a record (unknown) (no (unknown) (unknown) buspirone [From (units (unknown) date) BUSPAR] Allergy unknown) Unknown Unverified 07/11/17 12:47 (unknown) (no (unknown) (unknown) cephalosporins, (units (unknown) date) penicillin, and unknown) sulfa and states that her symptoms got better. (unknown) (no (unknown) (unknown) changes to her (units (unknown) date) stool, denies any unknown) dysuria, endorses right flank pain with (unknown) (no (unknown) (unknown) clonazepam 0.5 mg (units (unknown) date) tablet (Klonopin) unknown) 0.5 mg PO BID #0 12/17/16 (unknown) (no (unknown) (unknown) complicated UTI (units (unknown) date) be few weeks ago. unknown) Patient states that she has dull to full (unknown) (no (unknown) (unknown) concerning (units (unk nown) date) symptoms, such as unknown) [fever greater than 101F, chills, worsening pain, (unknown) (no (unknown) (unknown) denies any (units (unk nown) date) abnormal vaginal unknown) discharge (unknown) (no (unknown) (unknown) department within (units (unknown) date) the last 2 weeks unknown) for some of these similar pains. For (unknown) (no (unknown) (unknown) establish care (units (unknown) date) with one of the unknown) [facility] primary care providers. (unknown) (no (unknown) (unknown) groomed (units (unkno wn) date) unknown) (unknown) (no (unknown) (unknown) had 4 visits to (units (unknown) date) the [facility] unknown) Emergency Department, [address] which were (unknown) (no (unknown) (unknown) has followed up (units (unknown) date) with her primary unknown) care provider about the findings, she states (unknown) (no (unknown) (unknown) helpful. She (units ( unknown) date) states that she unknown) took hydrocodone and something for anxiety this (unknown) (no (unknown) (unknown) last 1 week and (units (unknown) date) worsening. She unknown) denies any fever, vomiting, diarrhea, chest (unknown) (no (unknown) (unknown) morning. (units (unkno wn) date) unknown) (unknown) (no (unknown) (unknown) negative for any (units (unknown) date) acute abnormality, unknown) right upper quadrant ultrasound which showed (unknown) (no (unknown) (unknown) of today's note (units (unknown) date) if your PCP is in unknown) our system (unknown) (no (unknown) (unknown) pain, shortness (units (unknown) date) of breath, or back unknown) pain. She endorses being treated for a UTI (unknown) (no (unknown) (unknown) palpation, denies (units (unknown) date) any chills, unknown) diaphoresis, or dizziness. Patient states that (unknown) (no (unknown) (unknown) persistent (units (unk nown) date) vomiting or other unknown) bothersome symptoms] (unknown) (no (unknown) (unknown) primary care (units (u nknown) date) provider is unknown) Concha Pang, and she has an upcoming transvaginal (unknown) (no (unknown) (unknown) repair as a child (units (unknown) date) but no other unknown) abdominal surgeries. She states she has a family (unknown) (no (unknown) (unknown) repaired when she (units (unknown) date) was a child, she unknown) states that she does not belching and that (unknown) (no (unknown) (unknown) right upper (units (un known) date) quadrant pain, unknown) abdominal distension, and feeling gassy. Patient (unknown) (no (unknown) (unknown) sertraline 50 mg (units (unknown) date) tablet (Zoloft) 50 unknown) mg PO QDAY #0 12/17/16 (unknown) (no (unknown) (unknown) she can not. She (units (unknown) date) endorses nausea unknown) without vomiting, denies any fever, denies any (unknown) (no (unknown) (unknown) states that she (units (unknown) date) has had abdominal unknown) complaints for the last 3 or 4 weeks. She has (unknown) (no (unknown) (unknown) tenderness with (units (unknown) date) exam, without unknown) guarding or rebound. Right CVA tenderness (unknown) (no (unknown) (unknown) that her only (units ( unknown) date) significant unknown) abdominal history is an umbilical hernia that was (unknown) (no (unknown) (unknown) they treated her (units (unknown) date) with Dilaudid and unknown) something for her anxiety, and this has been (unknown) (no (unknown) (unknown) two (units (unkno wn) date) abdominal/pelvis unknown) CT scans, and 1 abdominal ultrasound at [facility] emergency (unknown) (no (unknown) (unknown) ultrasound (units (unk nown) date) scheduled this unknown) week. Patient reports having history of PCOS, having (unknown) (no (unknown) (unknown) upcoming (units (unkno wn) date) transvaginal/pelvi unknown) c ultrasound later this week. She states that she (unknown) (no (unknown) (unknown) upper quadrant (units (unknown) date) pain unknown) (unknown) (no (unknown) (unknown) vomiting, (units (unkn own) date) constipation, or unknown) diarrhea. (unknown) (no (unknown) (unknown) weakness (units (unkno wn) date) unknown) (unknown) (no (unknown) (unknown) wheezing, (units (unkn own) date) stridor, or rales. unknown) No retractions or tachypnea. (unknown) (no (unknown) (unknown) with ciprofloxacin (units (unknown) date) about 3 weeks ago, unknown) her UTI improved and she has no longer had (unknown) (no (unknown) (unknown) worsening of (units (u nknown) date) these symptoms, unknown) states that she has had umbilical hernia surgery Result panel 9 (unknown) (no date) (unknown) (unknown) > 60 mL/min (unkn own) (unknown) (no date) (unknown) (unknown) 0.4 mg/dL (unkn own) (unknown) (no date) (unknown) (unknown) 0.56 mg/dL (unkn own) (unknown) (no date) (unknown) (unknown) 1.5 (units unknown) (unknown) (unknown) (no date) (unknown) (unknown) 105 mmol/L (unkn own) (unknown) (no date) (unknown) (unknown) 139 mmol/L (unkn own) (unknown) (no date) (unknown) (unknown) 19 IU/L (unkn own) (unknown) (no date) (unknown) (unknown) 2.9 g/dL (unkn own) (unknown) (no date) (unknown) (unknown) 25 IU/L (unkn own) (unknown) (no date) (unknown) (unknown) 28 mmol/L (unkn own) (unknown) (no date) (unknown) (unknown) 3.7 mmol/L (unkn own) (unknown) (no date) (unknown) (unknown) 4.4 g/dL (unkn own) (unknown) (no date) (unknown) (unknown) 41 U/L (unkn own) (unknown) (no date) (unknown) (unknown) 5 mg/dL (unkn own) (unknown) (no date) (unknown) (unknown) 7.3 g/dL (unkn own) (unknown) (no date) (unknown) (unknown) 8.9 (units unknown) (unknown) (unknown) (no date) (unknown) (unknown) 89 mg/dL (unkn own) (unknown) (no date) (unknown) (unknown) 9.4 mg/dL (unkn own) Result panel 10 (unknown) (no (unknown) (unknown) (no value) (units (unk nown) date) unknown) (unknown) (no (unknown) (unknown) *Please continue (units (unknown) date) to take your unknown) regular medications as directed. (unknown) (no (unknown) (unknown) Date of Service: (units (unknown) date) 08/06/21 unknown) (unknown) (no (unknown) (unknown) (no value) (units (unk nown) date) unknown) (unknown) (no (unknown) (unknown) <Electronically (units (unknown) date) signed by Sheryl YODERP Crew> (unknown) (no (unknown) (unknown) 0.5 mg PO BID Qty: (units (unknown) date) 0 0RF unknown) (unknown) (no (unknown) (unknown) 08/06/21 17:50 (units (unknown) date) unknown) (unknown) (no (unknown) (unknown) 08/06/21 2017 (units ( unknown) date) unknown) (unknown) (no (unknown) (unknown) 20 mg PO DAILY (units (unknown) date) Qty: 30 0RF unknown) (unknown) (no (unknown) (unknown) 25 mg PO DAILY (units (unknown) date) Qty: 30 0RF unknown) (unknown) (no (unknown) (unknown) 50 mg PO DAILY PRN (units (unknown) date) (Reason: pain) Qty: unknown) 14 0RF (unknown) (no (unknown) (unknown) 50 mg PO QDAY Qty: (units (unknown) date) 0 0RF unknown) (unknown) (no (unknown) (unknown) Allergies (units (unkn own) date) unknown) (unknown) (no (unknown) (unknown) Documented by: (units (unknown) date) GYPSY unknown) (unknown) (no (unknown) (unknown) ED Orders (units (unkn own) date) unknown) (unknown) (no (unknown) (unknown) Emergency Report (units (unknown) date) unknown) (unknown) (no (unknown) (unknown) Home Medications (units (unknown) date) unknown) (unknown) (no (unknown) (unknown) [facility] (units (unknown) date) [address] unknown) [place] [address] (unknown) (no (unknown) (unknown) Lab Results (units (un known) date) unknown) (unknown) (no (unknown) (unknown) Last Admin: (units (un known) date) 08/06/21 17:41 unknown) Dose: 1 mg (unknown) (no (unknown) (unknown) Last Admin: (units (un known) date) 08/06/21 17:41 unknown) Dose: 15 mg (unknown) (no (unknown) (unknown) Last Admin: (units (un known) date) 08/06/21 17:41 unknown) Dose: 4 mg (unknown) (no (unknown) (unknown) Last Admin: (units (un known) date) 08/06/21 18:24 unknown) Dose: 20 mg (unknown) (no (unknown) (unknown) Point of Care (units ( unknown) date) Testing unknown) (unknown) (no (unknown) (unknown) Previous Rx's (units ( unknown) date) unknown) (unknown) (no (unknown) (unknown) Stop: 08/06/21 (units (unknown) date) 17:30 unknown) (unknown) (no (unknown) (unknown) Stop: 08/06/21 (units (unknown) date) 17:34 unknown) (unknown) (no (unknown) (unknown) Stop: 08/06/21 (units (unknown) date) 18:09 unknown) (unknown) (no (unknown) (unknown) Urine Dip (units (unkn own) date) unknown) (unknown) (no (unknown) (unknown) Vital Signs - 8 hr (units (unknown) date) unknown) (unknown) (no (unknown) (unknown) [ ] New medication (units (unknown) date) prescriptions sent unknown) to your pharmacy: [ ] (unknown) (no (unknown) (unknown) [ ] New medication (units (unknown) date) written as a paper unknown) prescription (unknown) (no (unknown) (unknown) [ ] No new (units (unk nown) date) medications given unknown) (unknown) (no (unknown) (unknown) (no value) (units (unk nown) date) unknown) (unknown) (no (unknown) (unknown) 08/06/21 08/06/21 (units (unknown) date) 08/06/21 unknown) Range/Units (unknown) (no (unknown) (unknown) 17:50 17:50 17:50 (units (unknown) date) unknown) (unknown) (no (unknown) (unknown) clonazepam (units (unk nown) date) [Klonopin] 0.5 MG unknown) tablet (unknown) (no (unknown) (unknown) omeprazole 20 mg (units (unknown) date) capsule,delayed unknown) release(DR/EC) (unknown) (no (unknown) (unknown) sertraline 25 mg (units (unknown) date) tablet unknown) (unknown) (no (unknown) (unknown) sertraline (units (unk nown) date) [Zoloft] 50 MG unknown) tablet (unknown) (no (unknown) (unknown) tramadol 50 mg (units (unknown) date) tablet unknown) (unknown) (no (unknown) (unknown) 08/06/21 (units (unkno wn) date) unknown) (unknown) (no (unknown) (unknown) Abdominal (units (unkn own) date) location: right unknown) upper quadrant Qualified Code(s): R10.11 - Right (unknown) (no (unknown) (unknown) DI for Abdominal (units (unknown) date) Pain-Adult, GERD unknown) Diet (unknown) (no (unknown) (unknown) Epigastric (units (unk nown) date) abdominal pain, unknown) Anxiety (unknown) (no (unknown) (unknown) Medication (units (unk nown) date) Instructions unknown) Recorded (unknown) (no (unknown) (unknown) Medication (units (unk nown) date) Instructions unknown) Recorded Confirmed (unknown) (no (unknown) (unknown) She takes it as (units (unknown) date) needed anxiety unknown) medication but no preventative or maintenance (unknown) (no (unknown) (unknown) am sorry that you (units (unknown) date) continue to have unknown) this pain, it could be your ovarian cysts as (unknown) (no (unknown) (unknown) any symptoms of (units (unknown) date) dysuria or urinary unknown) frequency. Her last menses was 07/27/2021, (unknown) (no (unknown) (unknown) be on Zoloft, has (units (unknown) date) not been taking unknown) since December, she states that she feels (unknown) (no (unknown) (unknown) closely with (units (u nknown) date) outpatient unknown) providers as instructed. Patient understands plan and (unknown) (no (unknown) (unknown) for this to show (units (unknown) date) improvement, please unknown) follow-up as soon as possible with your (unknown) (no (unknown) (unknown) history and exam, (units (unknown) date) low suspicion for unknown) acute abdominal process, such as acute (unknown) (no (unknown) (unknown) history of (units (unk nown) date) cholelithiasis and unknown) cholecystectomies. Patient's lab work was (unknown) (no (unknown) (unknown) upper quadrant (units (unknown) date) abdominal pain, unknown) abdominal distension, and feeling gassy for the (unknown) (no (unknown) (unknown) vomiting, (units (unkn own) date) shortness of breath unknown) or chest pain. We hope that you feel better (unknown) (no (unknown) (unknown) well which she (units (unknown) date) will find out about unknown) on Sunday. Please use your other (unknown) (no (unknown) (unknown) *If you do not (units (unknown) date) have a primary care unknown) provider please contact [phone] to (unknown) (no (unknown) (unknown) *Please follow up (units (unknown) date) with your primary unknown) care provider in 2-3 days, call for an (unknown) (no (unknown) (unknown) *Return to (units (unk nown) date) Emergency unknown) Department if you should have any new, worsening or (unknown) (no (unknown) (unknown) *What to do: (units (u nknown) date) unknown) (unknown) (no (unknown) (unknown) *You have been (units (unknown) date) diagnosed with a unknown) state of anxiety, right upper quadrant and (unknown) (no (unknown) (unknown) 08/06/21 17:28 (units (unknown) date) unknown) (unknown) (no (unknown) (unknown) 08/06/21 17:36 (units (unknown) date) unknown) (unknown) (no (unknown) (unknown) 08/06/21 17:50 (units (unknown) date) unknown) (unknown) (no (unknown) (unknown) 08/06/21 18:31 (units (unknown) date) unknown) (unknown) (no (unknown) (unknown) 1.3 mm. Patient (units (unknown) date) requests a work unknown) note for 1 week. She is given this, discussed (unknown) (no (unknown) (unknown) 17:29 08/06/21 (units (unknown) date) unknown) (unknown) (no (unknown) (unknown) 17:51 08/06/21 (units (unknown) date) unknown) (unknown) (no (unknown) (unknown) 18:00 (units (unkno wn) date) unknown) (unknown) (no (unknown) (unknown) 18:30 08/06/21 (units (unknown) date) unknown) (unknown) (no (unknown) (unknown) 19:00 (units (unkno wn) date) unknown) (unknown) (no (unknown) (unknown) [id number] (units (unkno wn) date) unknown) (unknown) (no (unknown) (unknown) ALT 19 (<35) (units (unknown) date) IU/L unknown) (unknown) (no (unknown) (unknown) ANTIBIOTICS)] (units ( unknown) date) unknown) (unknown) (no (unknown) (unknown) AST 25 (14-36) (units (unknown) date) IU/L unknown) (unknown) (no (unknown) (unknown) Abdominal pain (units (unknown) date) unknown) (unknown) (no (unknown) (unknown) Activity (units (unkno wn) date) Restrictions/Additi unknown) onal Instructions: (unknown) (no (unknown) (unknown) Age/Sex: 26 / F (units (unknown) date) unknown) (unknown) (no (unknown) (unknown) Albumin 4.4 (units (unknown) date) (3.5-5.0) g/dL unknown) (unknown) (no (unknown) (unknown) Albumin/Globulin (units (unknown) date) Ratio 1.5 unknown) (1.0-2.8) (unknown) (no (unknown) (unknown) Alkaline (units (unkno wn) date) Phosphatase 41 unknown) (38-126) U/L (unknown) (no (unknown) (unknown) Allergy/AdvReac (units (unknown) date) Type Severity unknown) Reaction Status Date / Time (unknown) (no (unknown) (unknown) Antibiotics) (units (u nknown) date) unknown) (unknown) (no (unknown) (unknown) BUN 5 L (7-17) (units (unknown) date) mg/dL unknown) (unknown) (no (unknown) (unknown) BUN/Creatinine (units (unknown) date) Ratio 8.9 unknown) (6-22) (unknown) (no (unknown) (unknown) Baso # (Auto) 100 (units (unknown) date) (0-100) /uL unknown) (unknown) (no (unknown) (unknown) Baso % (Auto) 0.7 (units (unknown) date) (0-2) % unknown) (unknown) (no (unknown) (unknown) Bedside Urine (units ( unknown) date) Bilirubin - unknown) Negative (unknown) (no (unknown) (unknown) Bedside Urine (units ( unknown) date) Glucose Negative unknown) (unknown) (no (unknown) (unknown) Bedside Urine (units ( unknown) date) Ketone - unknown) Negative (unknown) (no (unknown) (unknown) Bedside Urine (units ( unknown) date) Leukocytes - unknown) Negative (unknown) (no (unknown) (unknown) Bedside Urine (units ( unknown) date) Nitrite - unknown) Negative (unknown) (no (unknown) (unknown) Bedside Urine (units ( unknown) date) Occult Blood - unknown) Negative (unknown) (no (unknown) (unknown) Bedside Urine (units ( unknown) date) Protein - unknown) Negative (unknown) (no (unknown) (unknown) Bedside Urine (units ( unknown) date) Urobilinogen - unknown) Negative (unknown) (no (unknown) (unknown) Bedside Urine pH (units (unknown) date) 6.5 unknown) (unknown) (no (unknown) (unknown) Blood Pressure (units (unknown) date) 151/103 H 08/06/21 unknown) 17:29 (unknown) (no (unknown) (unknown) Blood Pressure (units (unknown) date) 122/77 115/82 unknown) (unknown) (no (unknown) (unknown) Blood Pressure (units (unknown) date) 151/103 H 118/56 L unknown) (unknown) (no (unknown) (unknown) CBC Auto Diff (units ( unknown) date) [Complete Blood unknown) Count AUTO DIFF] Stat (unknown) (no (unknown) (unknown) CMP [Comprehensive (units (unknown) date) Metabolic Panel] unknown) Stat (unknown) (no (unknown) (unknown) Calcium 9.4 (units (unknown) date) (8.4-10.2) mg/dL unknown) (unknown) (no (unknown) (unknown) Carbon Dioxide (units (unknown) date) 28 (22-32) mmol/L unknown) (unknown) (no (unknown) (unknown) Cardio: denies (units (unknown) date) chest pain, unknown) palpitations, edema (unknown) (no (unknown) (unknown) Cardiovascular: (units (unknown) date) regular rate and unknown) rhythm, no peripheral edema, warm extremities (unknown) (no (unknown) (unknown) Chief Complaint: (units (unknown) date) Abdominal Pain unknown) (unknown) (no (unknown) (unknown) Chloride 105 (units (unknown) date) (98-107) mmol/L unknown) (unknown) (no (unknown) (unknown) Clinical (units (unkno wn) date) Impression: unknown) (unknown) (no (unknown) (unknown) 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 unknown) Stat (unknown) (no (unknown) (unknown) Course (units (unkno wn) date) unknown) (unknown) (no (unknown) (unknown) Creatinine 0.56 (units (unknown) date) (0.52-1.04) mg/dL unknown) (unknown) (no (unknown) (unknown) : 1995 (units (unknown) date) Acct:[id number] unknown) (unknown) (no (unknown) (unknown) Departure (units (unkn own) date) unknown) (unknown) (no (unknown) (unknown) Discharge Plan (units (unknown) date) unknown) (unknown) (no (unknown) (unknown) Discontinued (units (u nknown) date) unknown) (unknown) (no (unknown) (unknown) Discontinued (units (u nknown) date) Medications unknown) (unknown) (no (unknown) (unknown) ER Physician: (units ( unknown) date) Sheryl Snell unknown) RIDE OPERATOR (unknown) (no (unknown) (unknown) Eos # (Auto) 400 (units (unknown) date) (0-450) /uL unknown) (unknown) (no (unknown) (unknown) Eos % (Auto) 5.5 (units (unknown) date) H (2-4) % unknown) (unknown) (no (unknown) (unknown) Esterase (units (unkno wn) date) unknown) (unknown) (no (unknown) (unknown) Estimated GFR > (units (unknown) date) 60 (>60) mL/min unknown) (unknown) (no (unknown) (unknown) Exam (units (unkno wn) date) unknown) (unknown) (no (unknown) (unknown) Exam Narrative: (units (unknown) date) unknown) (unknown) (no (unknown) (unknown) Eyes: denies (units (u nknown) date) visual changes, eye unknown) pain (unknown) (no (unknown) (unknown) Eyes: pupils equal (units (unknown) date) round and reactive, unknown) EOMI, conjunctiva normal (unknown) (no (unknown) (unknown) GI: Endorses (units ( unknown) date) right upper unknown) quadrant pain, abdominal distension, nausea, denies (unknown) (no (unknown) (unknown) GI: abdomen soft, (units (unknown) date) nontender to unknown) palpation, nondistended, no masses, no exquisite (unknown) (no (unknown) (unknown) : denies (units (unk nown) date) dysuria, hematuria, unknown) urinary retention, frequency or incontinence, (unknown) (no (unknown) (unknown) General (units (unkno wn) date) unknown) (unknown) (no (unknown) (unknown) General: (units (unkno wn) date) cooperative, unknown) comfortable, in no acute distress, well developed and well (unknown) (no (unknown) (unknown) General: denies (units (unknown) date) fever, chills, unknown) malaise, sweats, fatigue (unknown) (no (unknown) (unknown) GenericComposite[P (units (unknown) date) lt Count 292 unknown) (150-400) X10^3/uL ] (unknown) (no (unknown) (unknown) GenericComposite[R (units (unknown) date) BC 4.46 unknown) (4.0-5.2) X10^6/uL ] (unknown) (no (unknown) (unknown) GenericComposite[W (units (unknown) date) BC 7.9 unknown) (4.5-11.0) X10^3/uL ] (unknown) (no (unknown) (unknown) Globulin 2.9 (units (unknown) date) (1.7-4.1) g/dL unknown) (unknown) (no (unknown) (unknown) Glucose 89 (units ( unknown) date) (70-100) mg/dL unknown) (unknown) (no (unknown) (unknown) HIV 1 + 2 Ab/Ag (units (unknown) date) 4th Gen Combo Stat unknown) (unknown) (no (unknown) (unknown) HPI - Abdominal (units (unknown) date) Pain unknown) (unknown) (no (unknown) (unknown) HPI narrative: (units (unknown) date) unknown) (unknown) (no (unknown) (unknown) HSV 1/2 DNA PCR (units (unknown) date) SWAB or BLOOD Stat unknown) (unknown) (no (unknown) (unknown) Hct 41.1 (units (unkn own) date) (36-46) % unknown) (unknown) (no (unknown) (unknown) Head/Neck: denies (units (unknown) date) headache, neck unknown) pain, dizziness (unknown) (no (unknown) (unknown) Head: atraumatic, (units (unknown) date) symmetrical facial unknown) expressions (unknown) (no (unknown) (unknown) Hepatitis Acute (units (unknown) date) Panel Stat unknown) (unknown) (no (unknown) (unknown) Hgb 13.7 (units (unkn own) date) (12.0-16.0) g/dL unknown) (unknown) (no (unknown) (unknown) History of Present (units (unknown) date) Illness unknown) (unknown) (no (unknown) (unknown) Independently (units ( unknown) date) reviewed vitals unknown) signs and nursing notes. (unknown) (no (unknown) (unknown) Initial Vital (units ( unknown) date) Signs unknown) (unknown) (no (unknown) (unknown) Initial Vital (units ( unknown) date) Signs: unknown) (unknown) (no (unknown) (unknown) Instructions: (units (u nknown) date) Anxiety Disorders, unknown) DI for Gastroesophageal Reflux Disease (GERD), (unknown) (no (unknown) (unknown) Ketorolac (units (unkn own) date) Tromethamine unknown) (Ketorolac 30 Mg/Ml Vial) 15 mg IV NOW ONE (unknown) (no (unknown) (unknown) Lab Data (units (unkno wn) date) unknown) (unknown) (no (unknown) (unknown) Labs: (units (unkno wn) date) unknown) (unknown) (no (unknown) (unknown) Lipase 196 (units (u nknown) date) (23-300) U/L unknown) (unknown) (no (unknown) (unknown) Lipase Stat (units (un known) date) unknown) (unknown) (no (unknown) (unknown) Lorazepam (units (unkn own) date) (Lorazepam 0.5 Mg unknown) Tablet) 1 mg PO NOW ONE (unknown) (no (unknown) (unknown) Lymph # (Auto) (units (unknown) date) 2300 ([id number]) unknown) /uL (unknown) (no (unknown) (unknown) Lymph % (Auto) (units (unknown) date) 29.5 (25-40) % unknown) (unknown) (no (unknown) (unknown) MCH 30.6 (units (unkn own) date) (26-34) PG unknown) (unknown) (no (unknown) (unknown) MCHC 33.2 (units (unk nown) date) (30-36) % unknown) (unknown) (no (unknown) (unknown) MCV 92.2 (units (unkn own) date) (80-100) fL unknown) (unknown) (no (unknown) (unknown) MDM - Abdominal (units (unknown) date) Pain unknown) (unknown) (no (unknown) (unknown) MDM Narrative (units ( unknown) date) unknown) (unknown) (no (unknown) (unknown) MSK: denies joint (units (unknown) date) pain, muscle unknown) weakness (unknown) (no (unknown) (unknown) MSK: moves all (units ( unknown) date) extremities, unknown) ambulatory w/steady gait, neurovascularly intact, no (unknown) (no (unknown) (unknown) Medical decision (units (unknown) date) making narrative: unknown) (unknown) (no (unknown) (unknown) [place] # (Auto) 400 (units (unknown) date) (0-900) /uL unknown) (unknown) (no (unknown) (unknown) [place] % (Auto) 5.5 (units (unknown) date) (3-14) % unknown) (unknown) (no (unknown) (unknown) Mouth/Throat: (units ( unknown) date) uvula midline, unknown) moist mucus membranes (unknown) (no (unknown) (unknown) Narrative (units (unkn own) date) unknown) (unknown) (no (unknown) (unknown) Narrative: (units (unk nown) date) unknown) (unknown) (no (unknown) (unknown) Neck: supple, (units ( unknown) date) atraumatic, without unknown) lymphadenopathy. (unknown) (no (unknown) (unknown) Neuro: denies (units ( unknown) date) numbness, tingling unknown) (unknown) (no (unknown) (unknown) Neuro: normal (units ( unknown) date) speech and unknown) cognition, A+O x3, normal tone (unknown) (no (unknown) (unknown) Neut # (Auto) (units ( unknown) date) 4700 ([id number]) unknown) /uL (unknown) (no (unknown) (unknown) Neut % (Auto) (units ( unknown) date) 58.8 (50-75) % unknown) (unknown) (no (unknown) (unknown) New (units (unkno wn) date) unknown) (unknown) (no (unknown) (unknown) No Action (units (unkn own) date) unknown) (unknown) (no (unknown) (unknown) Nose: nares (units (un known) date) patent, no unknown) rhinorrhea (unknown) (no (unknown) (unknown) Ondansetron HCl (units (unknown) date) (Ondansetron 4 Mg/2 unknown) Ml Inj) 4 mg IV NOW ONE (unknown) (no (unknown) (unknown) Ordered: (units (unkno wn) date) unknown) (unknown) (no (unknown) (unknown) Orders (units (unkno wn) date) unknown) (unknown) (no (unknown) (unknown) PPI, her (units (unkno wn) date) antidepressant, and unknown) having close follow-up. Patient understands and (unknown) (no (unknown) (unknown) Pantoprazole (units (u nknown) date) Sodium unknown) (Pantoprazole 40 Mg Vial) 20 mg IV NOW ONE (unknown) (no (unknown) (unknown) Patient (units (unkno wn) date) Disposition: Home unknown) (unknown) (no (unknown) (unknown) Patient History (units (unknown) date) unknown) (unknown) (no (unknown) (unknown) Patient denies any (units (unknown) date) abdominal surgeries unknown) in the past, states she has PCOS, has an (unknown) (no (unknown) (unknown) Patient: (units (unkno wn) date) Patricia Irvin unknown) MR#: [id number] (unknown) (no (unknown) (unknown) Penicillins (units (un known) date) [PENICILLINS] unknown) Allergy Unknown Verified 08/06/21 18:20 (unknown) (no (unknown) (unknown) Point of care (units ( unknown) date) testing: unknown) (unknown) (no (unknown) (unknown) Potassium 3.7 (units (unknown) date) (3.4-5.1) mmol/L unknown) (unknown) (no (unknown) (unknown) Test (units (unknown) date) Results Negative unknown) (unknown) (no (unknown) (unknown) Prescriptions: (units (unknown) date) unknown) (unknown) (no (unknown) (unknown) Psych: mental (units ( unknown) date) status is grossly unknown) normal, congruent mood, normal affect, pleasant (unknown) (no (unknown) (unknown) Pulse Oximetry (units (unknown) date) 100 08/06/21 unknown) 17:29 (unknown) (no (unknown) (unknown) Pulse Oximetry 100 (units (unknown) date) 99 100 unknown) (unknown) (no (unknown) (unknown) Pulse Oximetry 99 (units (unknown) date) 99 unknown) (unknown) (no (unknown) (unknown) Pulse Rate 87 (units (unknown) date) 08/06/21 17:29 unknown) (unknown) (no (unknown) (unknown) Pulse Rate 83 85 (units (unknown) date) unknown) (unknown) (no (unknown) (unknown) Pulse Rate 87 87 (units (unknown) date) 72 unknown) (unknown) (no (unknown) (unknown) Qualifiers: (units (un known) date) unknown) (unknown) (no (unknown) (unknown) RDW 12.7 (units (unkn own) date) (11.6-14.8) % unknown) (unknown) (no (unknown) (unknown) RPR W Reflex to (units (unknown) date) Titer Stat unknown) (unknown) (no (unknown) (unknown) Referrals: (units (unk nown) date) unknown) (unknown) (no (unknown) (unknown) Related Data (units (u nknown) date) unknown) (unknown) (no (unknown) (unknown) Respiratory Rate (units (unknown) date) unknown) (unknown) (no (unknown) (unknown) Respiratory Rate (units (unknown) date) 08/06/21 17:29 unknown) (unknown) (no (unknown) (unknown) Respiratory Rate (units (unknown) date) 22 unknown) (unknown) (no (unknown) (unknown) Respiratory: (units (u nknown) date) denies dyspnea, unknown) cough, orthopnea (unknown) (no (unknown) (unknown) Respiratory: (units (u nknown) date) normal effort, able unknown) to speak in complete sentences, no audible (unknown) (no (unknown) (unknown) Result diagrams: (units (unknown) date) unknown) (unknown) (no (unknown) (unknown) Review of Systems (units (unknown) date) unknown) (unknown) (no (unknown) (unknown) She states her (units (unknown) date) last menses was unknown) 07/27/21, and her has had a vasectomy. (unknown) (no (unknown) (unknown) Signed By: (units (unk nown) date) unknown) (unknown) (no (unknown) (unknown) Skin: brisk (units (un known) date) capillary refill, unknown) no rash, no erythema (unknown) (no (unknown) (unknown) Skin: denies rash, (units (unknown) date) itching, skin unknown) lesions or other (unknown) (no (unknown) (unknown) Smoking Status: (units (unknown) date) Current every day unknown) smoker (unknown) (no (unknown) (unknown) Social History (units (unknown) date) (Reviewed 08/06/21 unknown) @ 18:05 by ARVIN [place]) (unknown) (no (unknown) (unknown) Sodium 139 (units ( unknown) date) (137-145) mmol/L unknown) (unknown) (no (unknown) (unknown) Stand Alone Forms: (units (unknown) date) Work Release Note unknown) (unknown) (no (unknown) (unknown) Stated Complaint: (units (unknown) date) ABD pain post unknown) kidney infection (unknown) (no (unknown) (unknown) Sulfa (Sulfonamide (units (unknown) date) Allergy Unknown unknown) Verified 08/06/21 18:20 (unknown) (no (unknown) (unknown) This is a (units (unkn own) date) 26-year-old female unknown) who presents to the emergency department today for (unknown) (no (unknown) (unknown) This is a (units (unkno wn) date) 26-year-old female unknown) who presents to the emergency department with right (unknown) (no (unknown) (unknown) Time Seen by (units (u nknown) date) Provider: 08/06/21 unknown) 17:10 (unknown) (no (unknown) (unknown) Total Bilirubin (units (unknown) date) 0.4 (0.2-1.3) unknown) mg/dL (unknown) (no (unknown) (unknown) Total Protein (units ( unknown) date) 7.3 (6.3-8.2) unknown) g/dL (unknown) (no (unknown) (unknown) US abdomen limited (units (unknown) date) Stat unknown) (unknown) (no (unknown) (unknown) Urine Specific (units (unknown) date) [place] 1.015 unknown) (unknown) (no (unknown) (unknown) Vital Signs (units (un known) date) unknown) (unknown) (no (unknown) (unknown) Vital signs: (units (u nknown) date) unknown) (unknown) (no (unknown) (unknown) [employer], (units (unknown) date) [facility] [Non-Staff] - unknown) (unknown) (no (unknown) (unknown) [Embedded Image (units (unknown) date) Not Available] unknown) (unknown) (no (unknown) (unknown) [SULFA (units (unkno wn) date) (SULFONAMIDE unknown) (unknown) (no (unknown) (unknown) a contracted (units (u nknown) date) gallbladder, and unknown) she endorses ongoing abdominal pain since her (unknown) (no (unknown) (unknown) agrees to (units (unkn own) date) discharge home. unknown) All questions and concerns answered at this time. (unknown) (no (unknown) (unknown) allergies, she was (units (unknown) date) treated with unknown) ciprofloxacin due to her allergy to (unknown) (no (unknown) (unknown) amoxicillin (units (un known) date) Allergy Verified unknown) 08/06/21 18:20 (unknown) (no (unknown) (unknown) and cooperative (units (unknown) date) unknown) (unknown) (no (unknown) (unknown) and need for close (units (unknown) date) follow-up. Patient unknown) is appropriate and amenable to discharge (unknown) (no (unknown) (unknown) antidepressant or (units (unknown) date) anxiety medication. unknown) Discussed starting her on her sertraline (unknown) (no (unknown) (unknown) anxiety on a daily (units (unknown) date) basis approximately unknown) 11/09 and has a constant flow of anxiety. (unknown) (no (unknown) (unknown) appointment. Let (units (unknown) date) them know you were unknown) seen in the Emergency Department and that we (unknown) (no (unknown) (unknown) asked that you be (units (unknown) date) seen for follow-up. unknown) We will electronically transmit a record (unknown) (no (unknown) (unknown) at a lower dose of (units (unknown) date) 25 mg, she agrees unknown) to this, discuss also starting her on (unknown) (no (unknown) (unknown) at least before (units (unknown) date) food or other unknown) medications. Please go to your abdominal (unknown) (no (unknown) (unknown) buspirone [From (units (unknown) date) BUSPAR] Allergy unknown) Unknown Verified 08/06/21 18:20 (unknown) (no (unknown) (unknown) cells, nitrites. (units (unknown) date) Discussed close unknown) follow-up with primary care, starting on a (unknown) (no (unknown) (unknown) cephalosporins, (units (unknown) date) penicillin, and unknown) sulfa and states that her symptoms got better. (unknown) (no (unknown) (unknown) changes to her (units (unknown) date) stool, denies any unknown) dysuria, endorses right flank pain with (unknown) (no (unknown) (unknown) cholecystitis, (units (unknown) date) pancreatitis, unknown) perforated viscus, atypical appendicitis, colitis, (unknown) (no (unknown) (unknown) clonazepam 0.5 mg (units (unknown) date) tablet (Klonopin) unknown) 0.5 mg PO BID #0 12/17/16 (unknown) (no (unknown) (unknown) complicated UTI be (units (unknown) date) few weeks ago. unknown) Patient states that she has dull to full (unknown) (no (unknown) (unknown) concerning (units (unk nown) date) symptoms, such as unknown) [fever greater than 101F, chills, worsening pain, (unknown) (no (unknown) (unknown) denies any (units (unk nown) date) abnormal vaginal unknown) discharge (unknown) (no (unknown) (unknown) department within (units (unknown) date) the last 2 weeks unknown) for some of these similar pains. For (unknown) (no (unknown) (unknown) diverticulitis or (units (unknown) date) torsion. Extensive unknown) conversation about ER return precautions (unknown) (no (unknown) (unknown) electrolyte (units (un known) date) abnormalities., unknown) biliary tree is within normal limits, mild hepatic (unknown) (no (unknown) (unknown) epigastric pain (units (unknown) date) without clear unknown) cause. Your ultrasound today does not show any (unknown) (no (unknown) (unknown) establish care (units (unknown) date) with one of the unknown) [facility] primary care providers. (unknown) (no (unknown) (unknown) felt much better. (units (unknown) date) UA was negative for unknown) infection, red blood cells, white blood (unknown) (no (unknown) (unknown) groomed (units (unkno wn) date) unknown) (unknown) (no (unknown) (unknown) grossly (units (unkno wn) date) unremarkable, no unknown) leukocytosis, no obstructive signs, lipase 196, no (unknown) (no (unknown) (unknown) had 4 visits to (units (unknown) date) the [facility] unknown) Emergency Department, 2 abdominal CTs which were (unknown) (no (unknown) (unknown) has been informed (units (unknown) date) of results. unknown) Patient has been given strict return to ER (unknown) (no (unknown) (unknown) has followed up (units (unknown) date) with her primary unknown) care provider about the findings, she states (unknown) (no (unknown) (unknown) helpful. She (units ( unknown) date) states that she unknown) took hydrocodone and something for anxiety this (unknown) (no (unknown) (unknown) her symptoms at (units (unknown) date) length as well as unknown) her for ER visits for this same problem (unknown) (no (unknown) (unknown) home. Vital signs (units (unknown) date) are stable on unknown) repeat examination is unremarkable. Patient (unknown) (no (unknown) (unknown) last 1 week and (units (unknown) date) worsening. She unknown) denies any fever, vomiting, diarrhea, chest (unknown) (no (unknown) (unknown) medications as (units (unknown) date) needed for comfort. unknown) I hope that you start feeling better soon, (unknown) (no (unknown) (unknown) morning. (units (unkno wn) date) unknown) (unknown) (no (unknown) (unknown) negative for any (units (unknown) date) acute abnormality, unknown) right upper quadrant ultrasound which showed (unknown) (no (unknown) (unknown) of today's note if (units (unknown) date) your PCP is in our unknown) system (unknown) (no (unknown) (unknown) omeprazole 20 mg (units (unknown) date) capsule,delayed 20 unknown) mg PO DAILY #30 cap 08/06/21 (unknown) (no (unknown) (unknown) omeprazole daily (units (unknown) date) to help suppress unknown) gastric acid production due to her anxiety (unknown) (no (unknown) (unknown) omeprazole in the (units (unknown) date) morning before any unknown) food or other medications, wait 30 minutes (unknown) (no (unknown) (unknown) p.o. tolerant. (units ( unknown) date) Serial abdominal unknown) exam without increase in abdominal pain. Given (unknown) (no (unknown) (unknown) pain, shortness of (units (unknown) date) breath, or back unknown) pain. She endorses being treated for a UTI (unknown) (no (unknown) (unknown) palpation, denies (units (unknown) date) any chills, unknown) diaphoresis, or dizziness. Patient states that (unknown) (no (unknown) (unknown) persistent (units (unk nown) date) vomiting or other unknown) bothersome symptoms] (unknown) (no (unknown) (unknown) please come (units (un known) date) directly to the unknown) emergency department for help. Please start taking (unknown) (no (unknown) (unknown) please return to (units (unknown) date) emergency unknown) department for any worsening of your symptoms, fever, (unknown) (no (unknown) (unknown) precautions for any (units (unknown) date) new or worsening unknown) symptoms. Patient understands to follow up (unknown) (no (unknown) (unknown) primary care (units (u nknown) date) provider is unknown) Concha Bird, and she has an upcoming transvaginal (unknown) (no (unknown) (unknown) primary care (units (u nknown) date) provider. If you unknown) have any feelings of depression or suicidality, (unknown) (no (unknown) (unknown) problems with her (units (unknown) date) gallbladder, your unknown) lab work does not show any problems with (unknown) (no (unknown) (unknown) release (units (unkno wn) date) unknown) (unknown) (no (unknown) (unknown) repair as a child (units (unknown) date) but no other unknown) abdominal surgeries. She states she has a family (unknown) (no (unknown) (unknown) repaired when she (units (unknown) date) was a child, she unknown) states that she does not belching and that (unknown) (no (unknown) (unknown) right upper (units (un known) date) quadrant pain, unknown) abdominal distension, and feeling gassy. Patient (unknown) (no (unknown) (unknown) sertraline 25 mg (units (unknown) date) tablet 25 mg PO unknown) DAILY #30 tab 08/06/21 (unknown) (no (unknown) (unknown) she can not. She (units (unknown) date) endorses nausea unknown) without vomiting, denies any fever, denies any (unknown) (no (unknown) (unknown) signs of something (units (unknown) date) else wrong. I have unknown) called in sertraline to your pharmacy, I (unknown) (no (unknown) (unknown) soon. (units (unkno wn) date) unknown) (unknown) (no (unknown) (unknown) started you on 25 (units (unknown) date) mg which is half unknown) the dose used to be on, it may take 1-2 weeks (unknown) (no (unknown) (unknown) state. In the (units (unknown) date) emergency unknown) department she was given Ativan, Toradol, Protonix,She (unknown) (no (unknown) (unknown) states that she has (units (unknown) date) had abdominal unknown) complaints for the last 3 or 4 weeks. She has (unknown) (no (unknown) (unknown) steatosis, patient (units (unknown) date) already knew about unknown) that, CBD measures 2.5 mm, CHD measures (unknown) (no (unknown) (unknown) tenderness with (units (unknown) date) exam, without unknown) guarding or rebound. Right CVA tenderness (unknown) (no (unknown) (unknown) that her only (units ( unknown) date) significant unknown) abdominal history is an umbilical hernia that was (unknown) (no (unknown) (unknown) they treated her (units (unknown) date) with Dilaudid and unknown) something for her anxiety, and this has been (unknown) (no (unknown) (unknown) tramadol 50 mg (units (unknown) date) tablet 50 mg PO unknown) DAILY PRN #14 tab 08/06/21 (unknown) (no (unknown) (unknown) two (units (unkno wn) date) abdominal/pelvis CT unknown) scans, and 1 abdominal ultrasound at [facility] emergency (unknown) (no (unknown) (unknown) ultrasound (units (unk nown) date) scheduled this unknown) week. Patient reports having history of PCOS, having (unknown) (no (unknown) (unknown) ultrasound (units (unkn own) date) scheduled, we did unknown) not find any emergent causes to your pain today. I (unknown) (no (unknown) (unknown) upcoming (units (unkno wn) date) transvaginal/pelvic unknown) ultrasound later this week. She states that she (unknown) (no (unknown) (unknown) upper quadrant (units (unknown) date) pain unknown) (unknown) (no (unknown) (unknown) vomiting, (units (unkn own) date) constipation, or unknown) diarrhea. (unknown) (no (unknown) (unknown) was given a work (units (unknown) date) note. No unknown) peritoneal signs on abdominal exam. Patient remains (unknown) (no (unknown) (unknown) weakness (units (unkno wn) date) unknown) (unknown) (no (unknown) (unknown) wheezing, stridor, (units (unknown) date) or rales. No unknown) retractions or tachypnea. (unknown) (no (unknown) (unknown) will return to the (units (unknown) date) emergency unknown) department for any worsening of her symptoms. She (unknown) (no (unknown) (unknown) with ciprofloxacin (units (unknown) date) about 3 weeks ago, unknown) her UTI improved and she has no longer had (unknown) (no (unknown) (unknown) without any (units (unk nown) date) emergent cause to unknown) her complaints and patient states that she used to (unknown) (no (unknown) (unknown) worsening of these (units (unknown) date) symptoms, states unknown) that she has had umbilical hernia surgery (unknown) (no (unknown) (unknown) your abdominal (units (unknown) date) organs either. unknown) Your urine does not have infection, blood, or Result panel 11 (unknown) (no (unknown) (unknown) (no value) (units (unk nown) date) unknown) (unknown) (no (unknown) (unknown) *Please continue (units (unknown) date) to take your unknown) regular medications as directed. (unknown) (no (unknown) (unknown) Date of Service: (units (unknown) date) 08/06/21 unknown) (unknown) (no (unknown) (unknown) (no value) (units (unk nown) date) unknown) (unknown) (no (unknown) (unknown) <Electronically (units (unknown) date) signed by Sheryl unknown) [facility]ett [facility]> (unknown) (no (unknown) (unknown) <Electronically (units (unknown) date) signed by Celso unknown) Angela Stephens> (unknown) (no (unknown) (unknown) 0.5 mg PO BID Qty: (units (unknown) date) 0 0RF unknown) (unknown) (no (unknown) (unknown) 08/06/21 17:50 (units (unknown) date) unknown) (unknown) (no (unknown) (unknown) 08/06/21 2017 (units ( unknown) date) unknown) (unknown) (no (unknown) (unknown) 08/07/21 0758 (units ( unknown) date) unknown) (unknown) (no (unknown) (unknown) 20 mg PO DAILY (units (unknown) date) Qty: 30 0RF unknown) (unknown) (no (unknown) (unknown) 25 mg PO DAILY (units (unknown) date) Qty: 30 0RF unknown) (unknown) (no (unknown) (unknown) 50 mg PO DAILY PRN (units (unknown) date) (Reason: pain) Qty: unknown) 14 0RF (unknown) (no (unknown) (unknown) 50 mg PO QDAY Qty: (units (unknown) date) 0 0RF unknown) (unknown) (no (unknown) (unknown) Allergies (units (unkn own) date) unknown) (unknown) (no (unknown) (unknown) Documented by: (units (unknown) date) GYPSY unknown) (unknown) (no (unknown) (unknown) Emergency Report (units (unknown) date) unknown) (unknown) (no (unknown) (unknown) Home Medications (units (unknown) date) unknown) (unknown) (no (unknown) (unknown) [facility] (units (unknown) date) [address] unknown) [place] [address] (unknown) (no (unknown) (unknown) Lab Results (units (un known) date) unknown) (unknown) (no (unknown) (unknown) Last Admin: (units (un known) date) 08/06/21 17:41 unknown) Dose: 1 mg (unknown) (no (unknown) (unknown) Last Admin: (units (un known) date) 08/06/21 17:41 unknown) Dose: 15 mg (unknown) (no (unknown) (unknown) Last Admin: (units (un known) date) 08/06/21 17:41 unknown) Dose: 4 mg (unknown) (no (unknown) (unknown) Last Admin: (units (un known) date) 08/06/21 18:24 unknown) Dose: 20 mg (unknown) (no (unknown) (unknown) Point of Care (units ( unknown) date) Testing unknown) (unknown) (no (unknown) (unknown) Previous Rx's (units ( unknown) date) unknown) (unknown) (no (unknown) (unknown) Stop: 08/06/21 (units (unknown) date) 17:30 unknown) (unknown) (no (unknown) (unknown) Stop: 08/06/21 (units (unknown) date) 17:34 unknown) (unknown) (no (unknown) (unknown) Stop: 08/06/21 (units (unknown) date) 18:09 unknown) (unknown) (no (unknown) (unknown) Urine Dip (units (unkn own) date) unknown) (unknown) (no (unknown) (unknown) Vital Signs - 8 hr (units (unknown) date) unknown) (unknown) (no (unknown) (unknown) [ ] New medication (units (unknown) date) prescriptions sent unknown) to your pharmacy: [ ] (unknown) (no (unknown) (unknown) [ ] New medication (units (unknown) date) written as a paper unknown) prescription (unknown) (no (unknown) (unknown) [ ] No new (units (unk nown) date) medications given unknown) (unknown) (no (unknown) (unknown) (no value) (units (unk nown) date) unknown) (unknown) (no (unknown) (unknown) 08/06/21 08/06/21 (units (unknown) date) 08/06/21 unknown) Range/Units (unknown) (no (unknown) (unknown) 17:50 17:50 17:50 (units (unknown) date) unknown) (unknown) (no (unknown) (unknown) clonazepam (units (unk nown) date) [Klonopin] 0.5 MG unknown) tablet (unknown) (no (unknown) (unknown) omeprazole 20 mg (units (unknown) date) capsule,delayed unknown) release(DR/EC) (unknown) (no (unknown) (unknown) sertraline 25 mg (units (unknown) date) tablet unknown) (unknown) (no (unknown) (unknown) sertraline (units (unk nown) date) [Zoloft] 50 MG unknown) tablet (unknown) (no (unknown) (unknown) tramadol 50 mg (units (unknown) date) tablet unknown) (unknown) (no (unknown) (unknown) 08/06/21 (units (unkno wn) date) unknown) (unknown) (no (unknown) (unknown) Abdominal (units (unkn own) date) location: right unknown) upper quadrant Qualified Code(s): R10.11 - Right (unknown) (no (unknown) (unknown) DI for Abdominal (units (unknown) date) Pain-Adult, GERD unknown) Diet (unknown) (no (unknown) (unknown) Epigastric (units (unk nown) date) abdominal pain, unknown) Anxiety (unknown) (no (unknown) (unknown) I was immediately (units (unknown) date) available in the unknown) department for consultation. This (unknown) (no (unknown) (unknown) Medication (units (unk nown) date) Instructions unknown) Recorded (unknown) (no (unknown) (unknown) Medication (units (unk nown) date) Instructions unknown) Recorded Confirmed (unknown) (no (unknown) (unknown) She takes it as (units (unknown) date) needed anxiety unknown) medication but no preventative or maintenance (unknown) (no (unknown) (unknown) am sorry that you (units (unknown) date) continue to have unknown) this pain, it could be your ovarian cysts as (unknown) (no (unknown) (unknown) any symptoms of (units (unknown) date) dysuria or urinary unknown) frequency. Her last menses was 07/27/2021, (unknown) (no (unknown) (unknown) be on Zoloft, has (units (unknown) date) not been taking unknown) since December, she states that she feels (unknown) (no (unknown) (unknown) closely with (units (u nknown) date) outpatient unknown) providers as instructed. Patient understands plan and (unknown) (no (unknown) (unknown) for this to show (units (unknown) date) improvement, please unknown) follow-up as soon as possible with your (unknown) (no (unknown) (unknown) history and exam, (units (unknown) date) low suspicion for unknown) acute abdominal process, such as acute (unknown) (no (unknown) (unknown) history of (units (unk nown) date) cholelithiasis and unknown) cholecystectomies. Patient's lab work was (unknown) (no (unknown) (unknown) upper quadrant (units (unknown) date) abdominal pain, unknown) abdominal distension, and feeling gassy for the (unknown) (no (unknown) (unknown) vomiting, (units (unkn own) date) shortness of breath unknown) or chest pain. We hope that you feel better (unknown) (no (unknown) (unknown) well which she (units (unknown) date) will find out about unknown) on Sunday. Please use your other (unknown) (no (unknown) (unknown) <Sheryl Snell, (units (unknown) date) ARVIN - Last Filed: unknown) 08/06/21 20:17> (unknown) (no (unknown) (unknown) <Celso Stephens, (units (unknown) date) - Last Filed: unknown) 08/07/21 07:58> (unknown) (no (unknown) (unknown) *If you do not (units (unknown) date) have a primary care unknown) provider please contact [phone] to (unknown) (no (unknown) (unknown) *Please follow up (units (unknown) date) with your primary unknown) care provider in 2-3 days, call for an (unknown) (no (unknown) (unknown) *Return to (units (unk nown) date) Emergency unknown) Department if you should have any new, worsening or (unknown) (no (unknown) (unknown) *What to do: (units (u nknown) date) unknown) (unknown) (no (unknown) (unknown) *You have been (units (unknown) date) diagnosed with a unknown) state of anxiety, right upper quadrant and (unknown) (no (unknown) (unknown) 1.3 mm. Patient (units (unknown) date) requests a work unknown) note for 1 week. She is given this, discussed (unknown) (no (unknown) (unknown) 17:29 08/06/21 (units (unknown) date) unknown) (unknown) (no (unknown) (unknown) 17:51 08/06/21 (units (unknown) date) unknown) (unknown) (no (unknown) (unknown) 18:00 (units (unkno wn) date) unknown) (unknown) (no (unknown) (unknown) 18:30 08/06/21 (units (unknown) date) unknown) (unknown) (no (unknown) (unknown) 19:00 (units (unkno wn) date) unknown) (unknown) (no (unknown) (unknown) [id number] (units (unkno wn) date) unknown) (unknown) (no (unknown) (unknown) ALT 19 (<35) (units (unknown) date) IU/L unknown) (unknown) (no (unknown) (unknown) ANTIBIOTICS)] (units ( unknown) date) unknown) (unknown) (no (unknown) (unknown) AST 25 (14-36) (units (unknown) date) IU/L unknown) (unknown) (no (unknown) (unknown) Abdominal pain (units (unknown) date) unknown) (unknown) (no (unknown) (unknown) Activity (units (unkno wn) date) Restrictions/Additi unknown) onal Instructions: (unknown) (no (unknown) (unknown) Age/Sex: 26 / F (units (unknown) date) unknown) (unknown) (no (unknown) (unknown) Albumin 4.4 (units (unknown) date) (3.5-5.0) g/dL unknown) (unknown) (no (unknown) (unknown) Albumin/Globulin (units (unknown) date) Ratio 1.5 unknown) (1.0-2.8) (unknown) (no (unknown) (unknown) Alkaline (units (unkno wn) date) Phosphatase 41 unknown) (38-126) U/L (unknown) (no (unknown) (unknown) Allergy/AdvReac (units (unknown) date) Type Severity unknown) Reaction Status Date / Time (unknown) (no (unknown) (unknown) Antibiotics) (units (u nknown) date) unknown) (unknown) (no (unknown) (unknown) BUN 5 L (7-17) (units (unknown) date) mg/dL unknown) (unknown) (no (unknown) (unknown) BUN/Creatinine (units (unknown) date) Ratio 8.9 unknown) (6-22) (unknown) (no (unknown) (unknown) Baso # (Auto) 100 (units (unknown) date) (0-100) /uL unknown) (unknown) (no (unknown) (unknown) Baso % (Auto) 0.7 (units (unknown) date) (0-2) % unknown) (unknown) (no (unknown) (unknown) Bedside Urine (units ( unknown) date) Bilirubin - unknown) Negative (unknown) (no (unknown) (unknown) Bedside Urine (units ( unknown) date) Glucose Negative unknown) (unknown) (no (unknown) (unknown) Bedside Urine (units ( unknown) date) Ketone - unknown) Negative (unknown) (no (unknown) (unknown) Bedside Urine (units ( unknown) date) Leukocytes - unknown) Negative (unknown) (no (unknown) (unknown) Bedside Urine (units ( unknown) date) Nitrite - unknown) Negative (unknown) (no (unknown) (unknown) Bedside Urine (units ( unknown) date) Occult Blood - unknown) Negative (unknown) (no (unknown) (unknown) Bedside Urine (units ( unknown) date) Protein - unknown) Negative (unknown) (no (unknown) (unknown) Bedside Urine (units ( unknown) date) Urobilinogen - unknown) Negative (unknown) (no (unknown) (unknown) Bedside Urine pH (units (unknown) date) 6.5 unknown) (unknown) (no (unknown) (unknown) Blood Pressure (units (unknown) date) 151/103 H 08/06/21 unknown) 17:29 (unknown) (no (unknown) (unknown) Blood Pressure (units (unknown) date) 122/77 115/82 unknown) (unknown) (no (unknown) (unknown) Blood Pressure (units (unknown) date) 151/103 H 118/56 L unknown) (unknown) (no (unknown) (unknown) Calcium 9.4 (units (unknown) date) (8.4-10.2) mg/dL unknown) (unknown) (no (unknown) (unknown) Carbon Dioxide (units (unknown) date) 28 (22-32) mmol/L unknown) (unknown) (no (unknown) (unknown) Cardio: denies (units (unknown) date) chest pain, unknown) palpitations, edema (unknown) (no (unknown) (unknown) Cardiovascular: (units (unknown) date) regular rate and unknown) rhythm, no peripheral edema, warm extremities (unknown) (no (unknown) (unknown) Chief Complaint: (units (unknown) date) Abdominal Pain unknown) (unknown) (no (unknown) (unknown) Chloride 105 (units (unknown) date) (98-107) mmol/L unknown) (unknown) (no (unknown) (unknown) Clinical (units (o wn) date) Impression: unknown) (unknown) (no (unknown) (unknown) Cosign (units (unkno wn) date) unknown) (unknown) (no (unknown) (unknown) Course (units (unkno wn) date) unknown) (unknown) (no (unknown) (unknown) Creatinine 0.56 (units (unknown) date) (0.52-1.04) mg/dL unknown) (unknown) (no (unknown) (unknown) : 1995 (units (unknown) date) Acct:[id number] unknown) (unknown) (no (unknown) (unknown) Departure (units (unkn own) date) unknown) (unknown) (no (unknown) (unknown) Discharge Plan (units (unknown) date) unknown) (unknown) (no (unknown) (unknown) Discontinued (units (u nknown) date) unknown) (unknown) (no (unknown) (unknown) Discontinued (units (u nknown) date) Medications unknown) (unknown) (no (unknown) (unknown) ED Attending (units (u nknow) date) Cosignature unknown) Attestation: (unknown) (no (unknown) (unknown) ER Physician: (units ( unknown) date) Sheryl Snell unknown) RIDE OPERATOR (unknown) (no (unknown) (unknown) Eos # (Auto) 400 (units (unknown) date) (0-450) /uL unknown) (unknown) (no (unknown) (unknown) Eos % (Auto) 5.5 (units (unknown) date) H (2-4) % unknown) (unknown) (no (unknown) (unknown) Esterase (units (unkno wn) date) unknown) (unknown) (no (unknown) (unknown) Estimated GFR > (units (unknown) date) 60 (>60) mL/min unknown) (unknown) (no (unknown) (unknown) Exam (units (unkno wn) date) unknown) (unknown) (no (unknown) (unknown) Exam Narrative: (units (unknown) date) unknown) (unknown) (no (unknown) (unknown) Eyes: denies (units (u nknown) date) visual changes, eye unknown) pain (unknown) (no (unknown) (unknown) Eyes: pupils equal (units (unknown) date) round and reactive, unknown) EOMI, conjunctiva normal (unknown) (no (unknown) (unknown) GI: Endorses (units ( unknown) date) right upper unknown) quadrant pain, abdominal distension, nausea, denies (unknown) (no (unknown) (unknown) GI: abdomen soft, (units (unknown) date) nontender to unknown) palpation, nondistended, no masses, no exquisite (unknown) (no (unknown) (unknown) : denies (units (unk nown) date) dysuria, hematuria, unknown) urinary retention, frequency or incontinence, (unknown) (no (unknown) (unknown) General (units (unkno wn) date) unknown) (unknown) (no (unknown) (unknown) General: (units (unkno wn) date) cooperative, unknown) comfortable, in no acute distress, well developed and well (unknown) (no (unknown) (unknown) General: denies (units (unknown) date) fever, chills, unknown) malaise, sweats, fatigue (unknown) (no (unknown) (unknown) GenericComposite[P (units (unknown) date) lt Count 292 unknown) (150-400) X10^3/uL ] (unknown) (no (unknown) (unknown) GenericComposite[R (units (unknown) date) BC 4.46 unknown) (4.0-5.2) X10^6/uL ] (unknown) (no (unknown) (unknown) GenericComposite[W (units (unknown) date) BC 7.9 unknown) (4.5-11.0) X10^3/uL ] (unknown) (no (unknown) (unknown) Globulin 2.9 (units (unknown) date) (1.7-4.1) g/dL unknown) (unknown) (no (unknown) (unknown) Glucose 89 (units ( unknown) date) (70-100) mg/dL unknown) (unknown) (no (unknown) (unknown) HPI - Abdominal (units (unknown) date) Pain unknown) (unknown) (no (unknown) (unknown) HPI narrative: (units (unknown) date) unknown) (unknown) (no (unknown) (unknown) Hct 41.1 (units (unkn own) date) (36-46) % unknown) (unknown) (no (unknown) (unknown) Head/Neck: denies (units (unknown) date) headache, neck unknown) pain, dizziness (unknown) (no (unknown) (unknown) Head: atraumatic, (units (unknown) date) symmetrical facial unknown) expressions (unknown) (no (unknown) (unknown) Hgb 13.7 (units (unkn own) date) (12.0-16.0) g/dL unknown) (unknown) (no (unknown) (unknown) History of Present (units (unknown) date) Illness unknown) (unknown) (no (unknown) (unknown) Independently (units ( unknown) date) reviewed vitals unknown) signs and nursing notes. (unknown) (no (unknown) (unknown) Initial Vital (units ( unknown) date) Signs unknown) (unknown) (no (unknown) (unknown) Initial Vital (units ( unknown) date) Signs: unknown) (unknown) (no (unknown) (unknown) Instructions: (units (u nknown) date) Anxiety Disorders, unknown) DI for Gastroesophageal Reflux Disease (GERD), (unknown) (no (unknown) (unknown) Ketorolac (units (unkn own) date) Tromethamine unknown) (Ketorolac 30 Mg/Ml Vial) 15 mg IV NOW ONE (unknown) (no (unknown) (unknown) Lab Data (units (unkno wn) date) unknown) (unknown) (no (unknown) (unknown) Labs: (units (unkno wn) date) unknown) (unknown) (no (unknown) (unknown) Lipase 196 (units (u nknown) date) (23-300) U/L unknown) (unknown) (no (unknown) (unknown) Lorazepam (units (unkn own) date) (Lorazepam 0.5 Mg unknown) Tablet) 1 mg PO NOW ONE (unknown) (no (unknown) (unknown) Lymph # (Auto) (units (unknown) date) 2300 ([id number]) unknown) /uL (unknown) (no (unknown) (unknown) Lymph % (Auto) (units (unknown) date) 29.5 (25-40) % unknown) (unknown) (no (unknown) (unknown) MCH 30.6 (units (unkn own) date) (26-34) PG unknown) (unknown) (no (unknown) (unknown) MCHC 33.2 (units (unk nown) date) (30-36) % unknown) (unknown) (no (unknown) (unknown) MCV 92.2 (units (unkn own) date) (80-100) fL unknown) (unknown) (no (unknown) (unknown) MDM - Abdominal (units (unknown) date) Pain unknown) (unknown) (no (unknown) (unknown) MDM Narrative (units ( unknown) date) unknown) (unknown) (no (unknown) (unknown) MSK: denies joint (units (unknown) date) pain, muscle unknown) weakness (unknown) (no (unknown) (unknown) MSK: moves all (units ( unknown) date) extremities, unknown) ambulatory w/steady gait, neurovascularly intact, no (unknown) (no (unknown) (unknown) Medical decision (units (unknown) date) making narrative: unknown) (unknown) (no (unknown) (unknown) [place] # (Auto) 400 (units (unknown) date) (0-900) /uL unknown) (unknown) (no (unknown) (unknown) [place] % (Auto) 5.5 (units (unknown) date) (3-14) % unknown) (unknown) (no (unknown) (unknown) Mouth/Throat: (units ( unknown) date) uvula midline, unknown) moist mucus membranes (unknown) (no (unknown) (unknown) Narrative (units (unkn own) date) unknown) (unknown) (no (unknown) (unknown) Narrative: (units (unk nown) date) unknown) (unknown) (no (unknown) (unknown) Neck: supple, (units ( unknown) date) atraumatic, without unknown) lymphadenopathy. (unknown) (no (unknown) (unknown) Neuro: denies (units ( unknown) date) numbness, tingling unknown) (unknown) (no (unknown) (unknown) Neuro: normal (units ( unknown) date) speech and unknown) cognition, A+O x3, normal tone (unknown) (no (unknown) (unknown) Neut # (Auto) (units ( unknown) date) 4700 ([id number]) unknown) /uL (unknown) (no (unknown) (unknown) Neut % (Auto) (units ( unknown) date) 58.8 (50-75) % unknown) (unknown) (no (unknown) (unknown) New (units (unkno wn) date) unknown) (unknown) (no (unknown) (unknown) No Action (units (unkn own) date) unknown) (unknown) (no (unknown) (unknown) Nose: nares (units (un known) date) patent, no unknown) rhinorrhea (unknown) (no (unknown) (unknown) Ondansetron HCl (units (unknown) date) (Ondansetron 4 Mg/2 unknown) Ml Inj) 4 mg IV NOW ONE (unknown) (no (unknown) (unknown) Ordered: (units (unkno wn) date) unknown) (unknown) (no (unknown) (unknown) Orders (units (unkno wn) date) unknown) (unknown) (no (unknown) (unknown) PPI, her (units (unkno wn) date) antidepressant, and unknown) having close follow-up. Patient understands and (unknown) (no (unknown) (unknown) Pantoprazole (units (u nknown) date) Sodium unknown) (Pantoprazole 40 Mg Vial) 20 mg IV NOW ONE (unknown) (no (unknown) (unknown) Patient (units (unkno wn) date) Disposition: Home unknown) (unknown) (no (unknown) (unknown) Patient History (units (unknown) date) unknown) (unknown) (no (unknown) (unknown) Patient denies any (units (unknown) date) abdominal surgeries unknown) in the past, states she has PCOS, has an (unknown) (no (unknown) (unknown) Patient: (units (unkno wn) date) Patricia Irvin unknown) MR#: [id number] (unknown) (no (unknown) (unknown) Penicillins (units (un known) date) [PENICILLINS] unknown) Allergy Unknown Verified 08/06/21 18:20 (unknown) (no (unknown) (unknown) Point of care (units ( unknown) date) testing: unknown) (unknown) (no (unknown) (unknown) Potassium 3.7 (units (unknown) date) (3.4-5.1) mmol/L unknown) (unknown) (no (unknown) (unknown) Test (units (unknown) date) Results Negative unknown) (unknown) (no (unknown) (unknown) Prescriptions: (units (unknown) date) unknown) (unknown) (no (unknown) (unknown) Psych: mental (units ( unknown) date) status is grossly unknown) normal, congruent mood, normal affect, pleasant (unknown) (no (unknown) (unknown) Pulse Oximetry (units (unknown) date) 100 08/06/21 unknown) 17:29 (unknown) (no (unknown) (unknown) Pulse Oximetry 100 (units (unknown) date) 99 100 unknown) (unknown) (no (unknown) (unknown) Pulse Oximetry 99 (units (unknown) date) 99 unknown) (unknown) (no (unknown) (unknown) Pulse Rate 87 (units (unknown) date) 08/06/21 17:29 unknown) (unknown) (no (unknown) (unknown) Pulse Rate 83 85 (units (unknown) date) unknown) (unknown) (no (unknown) (unknown) Pulse Rate 87 87 (units (unknown) date) 72 unknown) (unknown) (no (unknown) (unknown) Qualifiers: (units (un known) date) unknown) (unknown) (no (unknown) (unknown) RDW 12.7 (units (unkn own) date) (11.6-14.8) % unknown) (unknown) (no (unknown) (unknown) Referrals: (units (unk nown) date) unknown) (unknown) (no (unknown) (unknown) Related Data (units (u nknown) date) unknown) (unknown) (no (unknown) (unknown) Respiratory Rate (units (unknown) date) unknown) (unknown) (no (unknown) (unknown) Respiratory Rate (units (unknown) date) 22 08/06/21 17:29 unknown) (unknown) (no (unknown) (unknown) Respiratory Rate (units (unknown) date) 22 unknown) (unknown) (no (unknown) (unknown) Respiratory: (units (u nknown) date) denies dyspnea, unknown) cough, orthopnea (unknown) (no (unknown) (unknown) Respiratory: (units (u nknown) date) normal effort, able unknown) to speak in complete sentences, no audible (unknown) (no (unknown) (unknown) Result diagrams: (units (unknown) date) unknown) (unknown) (no (unknown) (unknown) Review of Systems (units (unknown) date) unknown) (unknown) (no (unknown) (unknown) She states her (units (unknown) date) last menses was unknown) 07/27/21, and her has had a vasectomy. (unknown) (no (unknown) (unknown) Signed By: (units (unk nown) date) unknown) (unknown) (no (unknown) (unknown) Skin: brisk (units (un known) date) capillary refill, unknown) no rash, no erythema (unknown) (no (unknown) (unknown) Skin: denies rash, (units (unknown) date) itching, skin unknown) lesions or other (unknown) (no (unknown) (unknown) Smoking Status: (units (unknown) date) Current every day unknown) smoker (unknown) (no (unknown) (unknown) Social History (units (unknown) date) (Reviewed 08/06/21 unknown) @ 18:[address] [facility]) (unknown) (no (unknown) (unknown) Sodium 139 (units ( unknown) date) (137-145) mmol/L unknown) (unknown) (no (unknown) (unknown) Stand Alone Forms: (units (unknown) date) Work Release Note unknown) (unknown) (no (unknown) (unknown) Stated Complaint: (units (unknown) date) ABD pain post unknown) kidney infection (unknown) (no (unknown) (unknown) Sulfa (Sulfonamide (units (unknown) date) Allergy Unknown unknown) Verified 08/06/21 18:20 (unknown) (no (unknown) (unknown) Supervised by (units ( unknown) date) Celso Stephens, DO unknown) (unknown) (no (unknown) (unknown) This is a (units (unkn own) date) 26-year-old female unknown) who presents to the emergency department today for (unknown) (no (unknown) (unknown) This is a (units (unkno wn) date) 26-year-old female unknown) who presents to the emergency department with right (unknown) (no (unknown) (unknown) Time Seen by (units (u nknown) date) Provider: 08/06/21 unknown) 17:10 (unknown) (no (unknown) (unknown) Total Bilirubin (units (unknown) date) 0.4 (0.2-1.3) unknown) mg/dL (unknown) (no (unknown) (unknown) Total Protein (units ( unknown) date) 7.3 (6.3-8.2) unknown) g/dL (unknown) (no (unknown) (unknown) Urine Specific (units (unknown) date) [place] 1.015 unknown) (unknown) (no (unknown) (unknown) Vital Signs (units (un known) date) unknown) (unknown) (no (unknown) (unknown) Vital signs: (units (u nknown) date) unknown) (unknown) (no (unknown) (unknown) Concha Pang, (units (unknown) date) PA-C [Non-Staff] - unknown) (unknown) (no (unknown) (unknown) [Embedded Image (units (unknown) date) Not Available] unknown) (unknown) (no (unknown) (unknown) [SULFA (units (unkno wn) date) (SULFONAMIDE unknown) (unknown) (no (unknown) (unknown) a contracted (units (u nknown) date) gallbladder, and unknown) she endorses ongoing abdominal pain since her (unknown) (no (unknown) (unknown) agrees to (units (unkn own) date) discharge home. unknown) All questions and concerns answered at this time. (unknown) (no (unknown) (unknown) allergies, she was (units (unknown) date) treated with unknown) ciprofloxacin due to her allergy to (unknown) (no (unknown) (unknown) amoxicillin (units (un known) date) Allergy Verified unknown) 08/06/21 18:20 (unknown) (no (unknown) (unknown) and cooperative (units (unknown) date) unknown) (unknown) (no (unknown) (unknown) and need for close (units (unknown) date) follow-up. Patient unknown) is appropriate and amenable to discharge (unknown) (no (unknown) (unknown) antidepressant or (units (unknown) date) anxiety medication. unknown) Discussed starting her on her sertraline (unknown) (no (unknown) (unknown) anxiety on a daily (units (unknown) date) basis approximately unknown) 11/09 and has a constant flow of anxiety. (unknown) (no (unknown) (unknown) appointment. Let (units (unknown) date) them know you were unknown) seen in the Emergency Department and that we (unknown) (no (unknown) (unknown) asked that you be (units (unknown) date) seen for follow-up. unknown) We will electronically transmit a record (unknown) (no (unknown) (unknown) at a lower dose of (units (unknown) date) 25 mg, she agrees unknown) to this, discuss also starting her on (unknown) (no (unknown) (unknown) at least before (units (unknown) date) food or other unknown) medications. Please go to your abdominal (unknown) (no (unknown) (unknown) buspirone [From (units (unknown) date) BUSPAR] Allergy unknown) Unknown Verified 08/06/21 18:20 (unknown) (no (unknown) (unknown) cells, nitrites. (units (unknown) date) Discussed close unknown) follow-up with primary care, starting on a (unknown) (no (unknown) (unknown) cephalosporins, (units (unknown) date) penicillin, and unknown) sulfa and states that her symptoms got better. (unknown) (no (unknown) (unknown) changes to her (units (unknown) date) stool, denies any unknown) dysuria, endorses right flank pain with pa (unknown) (no (unknown) (unknown) cholecystitis, (units (unknown) date) pancreatitis, unknown) perforated viscus, atypical appendicitis, colitis, (unknown) (no (unknown) (unknown) clonazepam 0.5 mg (units (unknown) date) tablet (Klonopin) unknown) 0.5 mg PO BID #0 12/17/16 (unknown) (no (unknown) (unknown) complicated UTI be (units (unknown) date) few weeks ago. unknown) Patient states that she has dull to full (unknown) (no (unknown) (unknown) concerning (units (unk nown) date) symptoms, such as unknown) [fever greater than 101F, chills, worsening pain, (unknown) (no (unknown) (unknown) denies any (units (unk nown) date) abnormal vaginal unknown) discharge (unknown) (no (unknown) (unknown) department within (units (unknown) date) the last 2 weeks unknown) for some of these similar pains. For (unknown) (no (unknown) (unknown) diverticulitis or (units (unknown) date) torsion. Extensive unknown) conversation about ER return precautions (unknown) (no (unknown) (unknown) documentation has (units (unknown) date) been reviewed and I unknown) agree with assessment and plan. (unknown) (no (unknown) (unknown) electrolyte (units (un known) date) abnormalities., unknown) biliary tree is within normal limits, mild hepatic (unknown) (no (unknown) (unknown) epigastric pain (units (unknown) date) without clear unknown) cause. Your ultrasound today does not show any (unknown) (no (unknown) (unknown) establish care (units (unknown) date) with one of the unknown) [facility] primary care providers. (unknown) (no (unknown) (unknown) felt much better. (units (unknown) date) UA was negative for unknown) infection, red blood cells, white blood (unknown) (no (unknown) (unknown) groomed (units (unkno wn) date) unknown) (unknown) (no (unknown) (unknown) grossly (units (unkno wn) date) unremarkable, no unknown) leukocytosis, no obstructive signs, lipase 196, no (unknown) (no (unknown) (unknown) had 4 visits to (units (unknown) date) the [facility] unknown) Emergency Department, 2 abdominal CTs which were (unknown) (no (unknown) (unknown) has been informed (units (unknown) date) of results. unknown) Patient has been given strict return to ER (unknown) (no (unknown) (unknown) has followed up (units (unknown) date) with her primary unknown) care provider about the findings, she states (unknown) (no (unknown) (unknown) helpful. She (units ( unknown) date) states that she unknown) took hydrocodone and something for anxiety this (unknown) (no (unknown) (unknown) her symptoms at (units (unknown) date) length as well as unknown) her for ER visits for this same problem (unknown) (no (unknown) (unknown) home. Vital signs (units (unknown) date) are stable on unknown) repeat examination is unremarkable. Patient (unknown) (no (unknown) (unknown) last 1 week and (units (unknown) date) worsening. She unknown) denies any fever, vomiting, diarrhea, chest (unknown) (no (unknown) (unknown) lpation, denies any (units (unknown) date) chills, unknown) diaphoresis, or dizziness. Patient states that they (unknown) (no (unknown) (unknown) medications as (units (unknown) date) needed for comfort. unknown) I hope that you start feeling better soon, (unknown) (no (unknown) (unknown) morning. (units (unkno wn) date) unknown) (unknown) (no (unknown) (unknown) negative for any (units (unknown) date) acute abnormality, unknown) right upper quadrant ultrasound which showed (unknown) (no (unknown) (unknown) of today's note if (units (unknown) date) your PCP is in our unknown) system (unknown) (no (unknown) (unknown) omeprazole 20 mg (units (unknown) date) capsule,delayed 20 unknown) mg PO DAILY #30 cap 08/06/21 (unknown) (no (unknown) (unknown) omeprazole daily (units (unknown) date) to help suppress unknown) gastric acid production due to her anxiety (unknown) (no (unknown) (unknown) omeprazole in the (units (unknown) date) morning before any unknown) food or other medications, wait 30 minutes (unknown) (no (unknown) (unknown) p.o. tolerant. (units ( unknown) date) Serial abdominal unknown) exam without increase in abdominal pain. Given (unknown) (no (unknown) (unknown) pain, shortness of (units (unknown) date) breath, or back unknown) pain. She endorses being treated for a UTI (unknown) (no (unknown) (unknown) persistent (units (unk nown) date) vomiting or other unknown) bothersome symptoms] (unknown) (no (unknown) (unknown) please come (units (un known) date) directly to the unknown) emergency department for help. Please start taking (unknown) (no (unknown) (unknown) please return to (units (unknown) date) emergency unknown) department for any worsening of your symptoms, fever, (unknown) (no (unknown) (unknown) precautions for any (units (unknown) date) new or worsening unknown) symptoms. Patient understands to follow up (unknown) (no (unknown) (unknown) primary care (units (u nknown) date) provider is unknown) Concha Pang, and she has an upcoming transvaginal (unknown) (no (unknown) (unknown) primary care (units (u nknown) date) provider. If you unknown) have any feelings of depression or suicidality, (unknown) (no (unknown) (unknown) problems with her (units (unknown) date) gallbladder, your unknown) lab work does not show any problems with (unknown) (no (unknown) (unknown) release (units (unkno wn) date) unknown) (unknown) (no (unknown) (unknown) repair as a child (units (unknown) date) but no other unknown) abdominal surgeries. She states she has a family (unknown) (no (unknown) (unknown) repaired when she (units (unknown) date) was a child, she unknown) states that she does not belching and that (unknown) (no (unknown) (unknown) right upper (units (un known) date) quadrant pain, unknown) abdominal distension, and feeling gassy. Patient (unknown) (no (unknown) (unknown) sertraline 25 mg (units (unknown) date) tablet 25 mg PO unknown) DAILY #30 tab 08/06/21 (unknown) (no (unknown) (unknown) she can not. She (units (unknown) date) endorses nausea unknown) without vomiting, denies any fever, denies any (unknown) (no (unknown) (unknown) signs of something (units (unknown) date) else wrong. I have unknown) called in sertraline to your pharmacy, I (unknown) (no (unknown) (unknown) soon. (units (unkno wn) date) unknown) (unknown) (no (unknown) (unknown) started you on 25 (units (unknown) date) mg which is half unknown) the dose used to be on, it may take 1-2 weeks (unknown) (no (unknown) (unknown) state. In the (units (unknown) date) emergency unknown) department she was given Ativan, Toradol, Protonix,She (unknown) (no (unknown) (unknown) states that she has (units (unknown) date) had abdominal unknown) complaints for the last 3 or 4 weeks. She has (unknown) (no (unknown) (unknown) steatosis, patient (units (unknown) date) already knew about unknown) that, CBD measures 2.5 mm, CHD measures (unknown) (no (unknown) (unknown) tenderness with (units (unknown) date) exam, without unknown) guarding or rebound. Right CVA tenderness (unknown) (no (unknown) (unknown) that her only (units ( unknown) date) significant unknown) abdominal history is an umbilical hernia that was (unknown) (no (unknown) (unknown) tramadol 50 mg (units (unknown) date) tablet 50 mg PO unknown) DAILY PRN #14 tab 08/06/21 (unknown) (no (unknown) (unknown) treated her with (units (unknown) date) Dilaudid and unknown) something for her anxiety, and this has been (unknown) (no (unknown) (unknown) two (units (unkno wn) date) abdominal/pelvis CT unknown) scans, and 1 abdominal ultrasound at [facility] emergency (unknown) (no (unknown) (unknown) ultrasound (units (unk nown) date) scheduled this unknown) week. Patient reports having history of PCOS, having (unknown) (no (unknown) (unknown) ultrasound (units (unkn own) date) scheduled, we did unknown) not find any emergent causes to your pain today. I (unknown) (no (unknown) (unknown) upcoming (units (unkno wn) date) transvaginal/pelvic unknown) ultrasound later this week. She states that she (unknown) (no (unknown) (unknown) upper quadrant (units (unknown) date) pain unknown) (unknown) (no (unknown) (unknown) vomiting, (units (unkn own) date) constipation, or unknown) diarrhea. (unknown) (no (unknown) (unknown) was given a work (units (unknown) date) note. No unknown) peritoneal signs on abdominal exam. Patient remains (unknown) (no (unknown) (unknown) weakness (units (unkno wn) date) unknown) (unknown) (no (unknown) (unknown) wheezing, stridor, (units (unknown) date) or rales. No unknown) retractions or tachypnea. (unknown) (no (unknown) (unknown) will return to the (units (unknown) date) emergency unknown) department for any worsening of her symptoms. She (unknown) (no (unknown) (unknown) with ciprofloxacin (units (unknown) date) about 3 weeks ago, unknown) her UTI improved and she has no longer had (unknown) (no (unknown) (unknown) without any (units (unk nown) date) emergent cause to unknown) her complaints and patient states that she used to (unknown) (no (unknown) (unknown) worsening of these (units (unknown) date) symptoms, states unknown) that she has had umbilical hernia surgery (unknown) (no (unknown) (unknown) your abdominal (units (unknown) date) organs either. unknown) Your urine does not have infection, blood, or Result panel 12 (unknown) (no date) (unknown) (unknown) > 60 mL/min (unkn own) (unknown) (no date) (unknown) (unknown) 0.4 mg/dL (unkn own) (unknown) (no date) (unknown) (unknown) 0.56 mg/dL (unkn own) (unknown) (no date) (unknown) (unknown) 0.7 % (unkn own) (unknown) (no date) (unknown) (unknown) 1.5 (units unknown) (unknown) (unknown) (no date) (unknown) (unknown) 100 /uL (unkn own) (unknown) (no date) (unknown) (unknown) 105 mmol/L (unkn own) (unknown) (no date) (unknown) (unknown) 12.7 % (unkn own) (unknown) (no date) (unknown) (unknown) 13.7 g/dL (unkn own) (unknown) (no date) (unknown) (unknown) 139 mmol/L (unkn own) (unknown) (no date) (unknown) (unknown) 19 IU/L (unkn own) (unknown) (no date) (unknown) (unknown) 196 U/L (unkn own) (unknown) (no date) (unknown) (unknown) 2.9 g/dL (unkn own) (unknown) (no date) (unknown) (unknown) 2300 /uL (unkn own) (unknown) (no date) (unknown) (unknown) 25 IU/L (unkn own) (unknown) (no date) (unknown) (unknown) 28 mmol/L (unkn own) (unknown) (no date) (unknown) (unknown) 29.5 % (unkn own) (unknown) (no date) (unknown) (unknown) 292 X10 3/uL (unkn own) (unknown) (no date) (unknown) (unknown) 3.7 mmol/L (unkn own) (unknown) (no date) (unknown) (unknown) 30.6 PG (unkn own) (unknown) (no date) (unknown) (unknown) 33.2 % (unkn own) (unknown) (no date) (unknown) (unknown) 4.4 g/dL (unkn own) (unknown) (no date) (unknown) (unknown) 4.46 X10 6/uL (unkn own) (unknown) (no date) (unknown) (unknown) 400 /uL (unkn own) (unknown) (no date) (unknown) (unknown) 400 /uL (unkn own) (unknown) (no date) (unknown) (unknown) 41 U/L (unkn own) (unknown) (no date) (unknown) (unknown) 41.1 % (unkn own) (unknown) (no date) (unknown) (unknown) 4700 /uL (unkn own) (unknown) (no date) (unknown) (unknown) 5 mg/dL (unkn own) (unknown) (no date) (unknown) (unknown) 5.5 % (unkn own) (unknown) (no date) (unknown) (unknown) 5.5 % (unkn own) (unknown) (no date) (unknown) (unknown) 58.8 % (unkn own) (unknown) (no date) (unknown) (unknown) 7.3 g/dL (unkn own) (unknown) (no date) (unknown) (unknown) 7.9 X10 3/uL (unkn own) (unknown) (no date) (unknown) (unknown) 8.9 (units unknown) (unknown) (unknown) (no date) (unknown) (unknown) 89 mg/dL (unkn own) (unknown) (no date) (unknown) (unknown) 9.4 mg/dL (unkn own) (unknown) (no date) (unknown) (unknown) 92.2 fL (unkn own) Result panel 13 (unknown) (no date) (unknown) (unknown) NEGATIVE s/c (unkn own) Result panel 14 (unknown) (no date) (unknown) (unknown) NEGATIVE (units (unkn own) unknown) (unknown) (no date) (unknown) (unknown) NEGATIVE s/c (unkn own) Result panel 15 (unknown) (no date) (unknown) (unknown) Non Reactive (units ( unknown) unknown) Social History date description facility (no date) Smokes tobacco daily (finding) [facility] Vital Signs date measurement value units +0000 BMI BMI 30.1 kg/m2 +0000 BP_diastolic BP_diastolic 82 mm[H g] +0000 BP_systolic BP_systolic 115 mm[Hg] +0000 heart_rate heart_rate 85 /min +0000 height_metric height_metric 160.02 cm +0000 height_standard height_standard 63 in +0000 respiration_rate respiration_rate 22 /min +0000 weight_metric weight_metric 77.11 kg +0000 weight_standard weight_standard 170 lb
== END 2021-09-18 04:35 | disposition home or self-care (01) ==
LOC: ED 00:42
DX: R10.11 Right upper quadrant pain (principal); F17.200 Nicotine dependence, unspecified, uncomplicated
CPT/HCPCS: 36415; 80053; 81003; 81025; 83690; 85025; 96372; 99283; 99284; J1170; 81001; 87086

== ENCOUNTER 2022-04-14 19:04 | Emergency (ER) | payer MEDICAID ==
[2022-04-14 20:26] VITALS: BP 150/91
[2022-04-14 20:35] LABS: BASOPHILS % (AUTO) 0.5 %; EOSINOPHILS % (AUTO) 0.2 %; HCT - HEMATOCRIT 42.3 % (37.0-47.0); HGB - HEMOGLOBIN 13.7 g/dL (12.0-16.0); LYMPHOCYTES # (AUTO) 0.4 10^3/uL (1.5-3.5); LYMPHOCYTES % (AUTO) 5.4 %; MEAN CORPUSCULAR HEMOGLOBIN 29.3 pg (27.0-31.0); MEAN CORPUSCULAR HGB CONC 32.4 g/dL (32.0-36.0); MEAN CORPUSCULAR VOLUME 90.4 fL (81.0-99.0); MEAN PLATELET VOLUME 10.4 fL (7.9-10.8); MONOCYTES # (AUTO) 0.9 10^3/uL (0.0-1.0); MONOCYTES % (AUTO) 13.6 %; NEUTROPHILS # (AUTO) 5.2 10^3/uL (1.5-6.6); PLT - PLATELET COUNT 199 10^3/uL (130-450); RED BLOOD COUNT 4.68 10^6/uL (4.20-5.40); RED CELL DISTRIBUTION WIDTH 13.4 % (12.0-15.0); WHITE BLOOD COUNT 6.5 x10^3/uL (4.8-10.8)
[2022-04-14 20:49] LABS: ALBUMIN 4.4 g/dL (3.2-5.5); ALBUMIN/GLOBULIN RATIO 1.4 (1.0-2.2); BILIRUBIN,TOTAL 0.6 mg/dL (0.2-1.0); CALCIUM 9.6 mg/dL (8.5-10.3); CREATININE 0.9 mg/dL (0.4-1.0); POTASSIUM 3.9 mmol/L (3.5-5.0); TOTAL PROTEIN 7.5 g/dL (6.7-8.2)
== END 2022-04-14 21:02 | disposition left against medical advice (07) ==
LOC: ED 19:04
DX: Z53.21 Procedure and treatment not carried out due to patient leaving prior to being seen by health care provider (principal)
CPT/HCPCS: 36415; 80053; 83690; 85025

== ENCOUNTER 2022-11-15 12:25 | Emergency (ER) | payer MEDICAID ==
[2022-11-15 12:41] VITALS: BP 130/83; O2SAT 96
--- OUTSIDE RECORDS SUMMARY | 2022-11-15 13:19 | EXTERNAL MEDICAL SUMMARY RPT | Continuity of Care Document ---
Author Name Unknown Address [address] [place] [address] Phone Organization [facility] Address [address] [place] [address] Phone Care Team Providers Care Special Effects Technician Name Role Phone Abbey Benítez Unavailable Unavailable Allergies and Intolerances date description facility reaction severity (no date) Penicillins [facility] (no reaction) (no s everity) (no date) Sulfa (Sulfonamide Antibiotics) [facility] (no reaction) (no severity) (no date) amoxicillin [facility] (no reaction) (no s everity) (no date) buspirone [facility] (no reaction) (no se verity) Problems date description facility 2022-09-27 00:00 Adenomyosis of uterus [facility] spital 2022-09-27 00:00 Abnormal vaginal bleeding [facility] Procedures date description facility 2022-09-27 00:00 Complete ultrasound of pelvis [facility] Results/Labs test date facility value unit notes Social History date description facility 2022-09-27 00:00 Smokes tobacco daily (finding) [facility] Vital Signs date measurement value units 2022-09-27 00:00 BMI 24.7 kg/m2 2022-09-27 00:00 BP_diastolic 80 mmHg 2022-09-27 00:00 BP_systolic 129 mmHg 2022-09-27 00:00 heart_rate 75 /min 2022-09-27 00:00 height_metric 165.1 cm 2022-09-27 00:00 height_standard 65 in 2022-09-27 00:00 o2_saturation 99 % 2022-09-27 00:00 respiration_rate 18 /min 2022-09-27 00:00 temperature_metric 36.56 C 2022-09-27 00:00 temperature_standard 97.8 F 2022-09-27 00:00 weight_metric 67.58 kg 2022-09-27 00:00 weight_standard 148.99 lb
--- NOTE | 2022-11-15 13:32 | XRAY Report ---
PROCEDURE: Foot 3 View LT INDICATIONS: Trauma TECHNIQUE: 3 views of the foot were acquired. COMPARISON: None. FINDINGS: Bones: Oblique fracture through the base of the first distal phalanx. Soft tissues: No suspicious soft tissue calcifications or masses. IMPRESSION: Ovoid fracture through the base of the first distal phalanx. Reviewed by: Tejinder Connelly on 11/15/2022 1:30 PM PDT Approved by: Tejinder Connelly on 11/15/2022 1:30 PM PDT Station ID: [id number]
--- NOTE | 2022-11-15 15:10 | ED Physician Documentation ---
History of Present Illness - Stated complaint Stated Complaint: L BIG TOE INJURY - Chief complaint Chief Complaint: Trauma Ext - Additonal information Additional information: 27-year-old female presents emergency department for evaluation of acute left great toe pain sustained when she dropped a heavy object on it about 10 days ago. She had significant bruising after the initial event but it then improved. However she is been having pain persistently with walking. She had an increase in erythema after exposure to salt water recently. No history of previous injury. Tetanus is up-to-date. 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 Psych: Depression, Anxiety Musculoskeletal: None - Past Surgical History Past Surgical History: Yes General: Other HEENT: Other - Present Medications Home Medications: Ambulatory Orders Medication Instructions Recorded Confirmed HYDROcod/ACETAM 5/325 [[place] 5/325] 1 - 2 tab PO Q6H PRN #15 tablet 07/26/21 08/03/21 Omeprazole 40 mg PO DAILY #30 cap 07/26/21 08/03/21 clonazePAM [Clonazepam] 0.25 mg PO TID #21 tab 07/26/21 08/03/21 dexAMETHasone [Decadron] 4 mg PO DAILY #5 tablet 09/18/21 oxyCODONE [Roxicodone] 5 mg PO Q6H PRN #15 tablet 09/18/21 Doxycycline Hyclate 100 mg PO BID #14 cap 11/15/22 HYDROcod/ACETAM 5/325 [[place] 5/325] 1 tablet PO BID PRN #10 tablet 11/15/22 - Allergies Allergies/Adverse Reactions: Allergies Allergy/AdvReac Type Severity Reaction Status Date / Time Penicillins Allergy Mild Unknown Verified 04/14/22 20:26 Sulfa (Sulfonamide Allergy Mild Unknown Verified 04/14/22 20:26 Antibiotics) buspirone Allergy Unknown Verified 04/14/22 20:26 cephalexin monohydrate * Allergy Hives Verified 04/14/22 20:26 [From [employer]] - Social History Does the pt smoke?: Yes Smoking Status: Current every day smoker Does the pt drink ETOH?: Yes Does the pt have substance abuse?: No - Immunizations Immunizations are current?: Yes - POLST Patient has POLST: No PD ED PE EXPANDED - Extremities Extremities: Left foot (Swelling and erythema of the left great toe without drainage. Tender to palpation on the dorsum of the toe. Brisk cap refill. No obvious deformity.) Results - Vitals Vitals: Vital Signs - 24 hr 11/15/22 12:27 Temperature 36.4 C L Heart Rate 118 H Respiratory 16 Rate Blood Pressure 130/83 H O2 Saturation 96 Oxygen O2 Source Room air - Rads (name of study) left foot Relevant Findings:: Final report received (Avoid fracture through the base of the first distal phalanx) PD Medical Decision Making - ED course Complexity details: reviewed results, re-evaluated patient, d/w patient ED course: 27-year-old female presents emergency department for evaluation of acute left great toe pain sustained when a heavy object was dropped on about 10 days ago. An x-ray today does demonstrate a fracture through the base of the first distal phalanx. Patient has declined crutches but has acquiesced to hard postop shoe and miley taping. Limited amount of hydrocodone sent to the pharmacy. She does appear to have developed a superficial cellulitis after exposure to salt water. Will be started on 5-day course doxycycline. Usual emergent return precautions for worsening symptoms was discussed. Advised to follow closely with orthopedics as she may benefit from operative repair. I am prescribing a short course of short-acting opioid pain medication for this patient. 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 I have discussed that the opioids are for short term therapy only, and will not be refilled from the ED. Departure - Departure Disposition: 01 Home, Self Care Clinical Impression: Cellulitis of toe of left foot Toe fracture, left Qualifiers: Encounter type: initial encounter Toe: great toe Fracture type: closed Phalanx: proximal Fracture alignment: nondisplaced Qualified Code(s): S92.415A - Nondisplaced fracture of proximal phalanx of left great toe, initial encounter for closed fracture Condition: Stable Record reviewed to determine appropriate education?: Yes Prescriptions: Doxycycline Hyclate 100 mg PO BID #14 cap HYDROcod/ACETAM 5/325 [[place] 5/325] 1 tablet PO BID PRN #10 tablet PRN Reason: Pain Comments: Michelle you do have an ovoid fracture through the base of the first distal phalanx. In some instances these fractures are operatively managed. Please speak to your primary care doctor in order to obtain referral to orthopedics. In general I recommend miley taping the toe to help prevent movement and stabilize the fracture. You should wear the hard postop shoe. You have declined crutches today but it is important to prevent weightbearing on this toe until it is healed. You do have a mild superficial infection of the toe and for that I have started you on an antibiotic called doxycycline. You can develop a rash when exposed to the sun while on doxycycline so when outside please wear long sleeves, long pants and a hat. In general I would like you to take Tylenol and ibuprofen tnbe-nvb-oilcciu for toe discomfort. For more severe pain a limited prescription of hydrocodone has been sent to the pharmacy. I am prescribing a short course of narcotic pain medication for you. These are potentially dangerous and addictive medications that should be used carefully. These medications may constipate you. Take an wfrf-jtd-pntrwno stool softener (docusate) twice daily with plenty of water while taking these medications. If you go 24 hours without a bowel movement, take esge-fqk-ownamwi miralax, per package instructions. Do not drink or drive while taking these medications. If you received narcotic or sedating medications while in the emergency department, do not drive for 24 hours. Store this medication in a safe, secure place and out of reach of children. It is a violation of federal law to give or sell this medication to another person or to use in a manner other than prescribed. The ED will not refill narcotic prescriptions, including prescriptions lost or stolen. To dispose of unwanted medications: 1. [facility] at [address] in [place] has a medication drop box. They accept prescription medications (in pill form) Sunday through Sunday 9:00 a.m. to 5:00 p.m. 2. The [facility] accepts prescription medications (in pill form only) for disposal year round. Call for more information. 3. Contact the [facility] for the next [facility] sponsored prescription drug collection event. , [phone], or [phone]; Note that many narcotic pain relievers also contain Tylenol/acetaminophen. Please ensure that your total dose of acetaminophen from all sources does not exceed 3 g (3000 mg) per day.
== END 2022-11-15 15:25 | disposition home or self-care (01) ==
LOC: ED 12:25
DX: L03.032 Cellulitis of left toe (principal); F17.200 Nicotine dependence, unspecified, uncomplicated
CPT/HCPCS: 99283

== ENCOUNTER 2023-07-08 20:05 | Emergency (ER) | payer MEDICAID ==
--- NOTE | 2023-07-08 20:25 | ED Physician Documentation ---
PD HPI BACK PAIN - Stated complaint Stated Complaint: BACK PX - Chief complaint Chief Complaint: Back Pain - History obtained from History obtained from: Patient - Additional information Additional information: HPI from patient. Patient complains of pain across her lower lumbar area, her upper lumbar region. There was no inciting event. There are no exacerbating nor ameliorating factors; she specifically denies any change in the pain with movement, position. She denies history of similar pain. The pain was first noticed when she woke up this morning. Denies abdominal pain, urinary frequency, hematuria, fever, numbness, weakness, urinary incontinence. Has taken ibuprofen without adequate relief. 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 Psych: Depression, Anxiety Musculoskeletal: None - Past Surgical History Past Surgical History: Yes General: Other HEENT: Other - Present Medications Home Medications: Ambulatory Orders Medication Instructions Recorded Confirmed HYDROcod/ACETAM 5/325 [[place] 5/325] 1 - 2 tab PO Q6H PRN #15 tablet 07/26/21 08/03/21 Omeprazole 40 mg PO DAILY #30 cap 07/26/21 08/03/21 clonazePAM [Clonazepam] 0.25 mg PO TID #21 tab 07/26/21 08/03/21 dexAMETHasone [Decadron] 4 mg PO DAILY #5 tablet 09/18/21 oxyCODONE [Roxicodone] 5 mg PO Q6H PRN #15 tablet 09/18/21 Doxycycline Hyclate 100 mg PO BID #14 cap 11/15/22 HYDROcod/ACETAM 5/325 [[place] 5/325] 1 tablet PO BID PRN #10 tablet 11/15/22 oxyCODONE [Roxicodone] 5 - 10 mg PO Q6H PRN #14 tablet 07/08/23 - Allergies Allergies/Adverse Reactions: Allergies Allergy/AdvReac Type Severity Reaction Status Date / Time Penicillins Allergy Mild Unknown Verified 07/08/23 20:11 Sulfa (Sulfonamide Allergy Mild Unknown Verified 07/08/23 20:11 Antibiotics) buspirone Allergy Unknown Verified 07/08/23 20:11 cephalexin monohydrate * Allergy Hives Verified 07/08/23 20:11 [From Keflex] - Social History Does the pt smoke?: Yes Smoking Status: Current every day smoker Does the pt drink ETOH?: Yes Does the pt have substance abuse?: No - Immunizations Immunizations are current?: Yes - POLST Patient has POLST: No PD ED PE NORMAL - Vitals Vital signs reviewed: Yes - General General: Alert and oriented X 3, No acute distress, Well developed/nourished - Abdomen Abdomen: Soft, Non tender, Non distended - Back Back: No spinal TTP, Other (mild bilateral CVAT, R>L) - Derm Derm: No rash Results - Vitals Vitals: Vital Signs - 24 hr 07/08/23 07/08/23 20:11 22:23 Temperature 36.8 C Heart Rate 84 82 Respiratory 16 18 Rate Blood Pressure 150/100 H 140/90 H O2 Saturation 100 99 Oxygen O2 Source Room air - Labs Labs: Laboratory Tests 07/08/23 20:56 Urine Color STRAW Urine Clarity CLEAR Urine pH 6.5 Ur Specific [place] <=1.005 Urine Protein NEGATIVE Urine Glucose (UA) NEGATIVE Urine Ketones NEGATIVE Urine Occult Blood NEGATIVE Urine Nitrite NEGATIVE Urine Bilirubin NEGATIVE Urine Urobilinogen 0.2 (NORMAL) Ur Leukocyte Esterase NEGATIVE Ur Microscopic Review NOT INDICATED Urine Culture Comments NOT INDICATED Urine HCG, Qual NEGATIVE PD Medical Decision Making - ED course Complexity details: reviewed results, re-evaluated patient, considered differential, d/w patient ED course: Atraumatic lower back pain. Normal urinalysis, urine hCG is negative. No neurologic complaints nor findings on exam. Further testing can take place in the outpatient setting. Advised to follow-up with PCP, next available appointment, for reevaluation. Discussed options for her symptomatic treatment. She declines muscle relaxants; says she has had bad side effect in the past with muscle relaxants. She declines IM Toradol. Prefers to avoid Vicodin due to side effect in the past. She is given 5 mg oxycodone. Departure - Departure Disposition: 01 Home, Self Care Clinical Impression: Back pain Condition: Good Instructions: ED Neck Back Pain General Prescriptions: oxyCODONE [Roxicodone] 5 - 10 mg PO Q6H PRN #14 tablet PRN Reason: Pain >8 Comments: Your test was negative and your urinalysis was normal. The normal urinalysis effectively rules out urinary tract infection including kidney infection. The cause of your pain is not apparent at this time. As we discussed, I would also consider possible gallstones as a cause. On my bedside ultrasound, I did not see any gallstones, but you should follow-up with your primary care provider; an outpatient ultrasound of her gallbladder undertaken by family law specialist would be more accurate than my bedside ultrasound. I providing you with a prescription for oxycodone (narcotic/opiate pain medication) to help with the pain until you can follow up with your primary care provider. I am prescribing a short course of narcotic pain medication for you. These are potentially dangerous and addictive medications that should be used carefully. These medications may constipate you. Take an zafh-ybc-rhbcuwf stool softener (docusate) twice daily with plenty of water while taking these medications. If you go 24 hours without a bowel movement, take lntm-qdz-wuhstng miralax, per package instructions. Do not drink or drive while taking these medications. If you received narcotic or sedating medications while in the emergency department, do not drive for 24 hours. Store this medication in a safe, secure place and out of reach of children. It is a violation of federal law to give or sell this medication to another person or to use in a manner other than prescribed. The ED will not refill narcotic prescriptions, including prescriptions lost or stolen. To dispose of unwanted medications: 1. [facility] at [address] in [place] has a medication drop box. They accept prescription medications (in pill form) Sunday through Sunday 9:00 a.m. to 5:00 p.m. 2. The [facility] Police Department accepts prescription medications (in pill form only) for disposal year round. Call for more information. 3. Contact the [facility] for the next [facility] sponsored prescription drug collection event. , [phone], or [phone]; Discharge Date/Time: 07/08/23 22:23
[2023-07-08] MEDS: oxyCODONE 5 MG TABLET PO STA (21:01)
[2023-07-08 21:12] LABS: BILIRUBIN,URINE NEGATIVE (NEGATIVE); GLUCOSE, URINE (UA) NEGATIVE (NEGATIVE); KETONES,URINE (UA) NEGATIVE (NEGATIVE); LEUKOCYTE ESTERASE, URINE NEGATIVE (NEGATIVE); NITRITE,URINE NEGATIVE (NEGATIVE); OCCULT BLOOD,URINE NEGATIVE (NEGATIVE); PH,URINE 6.5 PH (5.0-7.5); PROTEIN,URINE NEGATIVE (NEGATIVE); UROBILINOGEN,URINE 0.2 (NORMAL) E.U./dL (NORMAL)
[2023-07-08 21:13] LABS: CLARITY,URINE CLEAR (CLEAR); HCG UR QUAL NEGATIVE
[2023-07-08] MEDS: oxyCODONE/ACET 5/325 Prepack 4 PO STA (22:22)
[2023-07-08 22:26] VITALS: BP 140/90; O2SAT 99
== END 2023-07-08 22:23 | disposition home or self-care (01) ==
LOC: ED 20:05
DX: M54.50 Low back pain, unspecified (principal); F17.200 Nicotine dependence, unspecified, uncomplicated
CPT/HCPCS: 81003; 81025; 99283; A9270; 81001; 87086

== ENCOUNTER 2023-11-27 11:40 | Emergency (ER) | payer MEDICAID ==
--- NOTE | 2023-11-27 12:07 | ED Physician Documentation ---
History of Present Illness - Stated complaint Stated Complaint: LIGHTHEADED, DIZZY, TENSE - History obtained from History obtained from: Patient - History of Present Illness Timing: Prior to arrival - Additonal information Additional information: Patient is a 28-year-old female presenting to the emergency department with diffuse complaints of lightheadedness intermittent body tensing jitteriness. Jeff henry takes clonazepam half a milligram tablet twice daily as needed and for severe anxiety. She notes she has been doing this for for about 8 years now. 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 Patient was unable to take her medication this morning. She last had it refilled on 11/06. Patient has been taking it twice a day 0.5 mg of clonazepam. She notes her anxiety has been higher than normal.She notes she has been taking the medication as prescribed for the past 8 years and only has had 1 or 2 other instances where she has ran out of medication and has been unable to take it. Patient was told by her PCP if she stopped this medication completely she could have a risk of seizures. Patient denies any previous history of seizures and only takes this medication for severe anxiety.Patient reports her last dose was yesterday morning and she missed her evening dose in the morning dose today. She notes her symptoms started last night and have progressively worsened today. 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 HEENT: Other Psych: Depression, Anxiety Musculoskeletal: None - Past Surgical History Past Surgical History: Yes General: Other HEENT: Other - Present Medications Home Medications: Ambulatory Orders Medication Instructions Recorded Confirmed HYDROcod/ACETAM 5/325 [[place] 5/325] 1 - 2 tab PO Q6H PRN #15 tablet 07/26/21 08/03/21 Omeprazole 40 mg PO DAILY #30 cap 07/26/21 08/03/21 clonazePAM [Clonazepam] 0.25 mg PO TID #21 tab 07/26/21 08/03/21 dexAMETHasone [Decadron] 4 mg PO DAILY #5 tablet 09/18/21 oxyCODONE [Roxicodone] 5 mg PO Q6H PRN #15 tablet 09/18/21 Doxycycline Hyclate 100 mg PO BID #14 cap 11/15/22 HYDROcod/ACETAM 5/325 [[place] 5/325] 1 tablet PO BID PRN #10 tablet 11/15/22 oxyCODONE [Roxicodone] 5 - 10 mg PO Q6H PRN #14 tablet 07/08/23 clonazePAM [Clonazepam] 0.5 mg PO BID #8 tab 11/27/23 - Allergies Allergies/Adverse Reactions: Allergies Allergy/AdvReac Type Severity Reaction Status Date / Time Penicillins Allergy Mild Unknown Verified 11/27/23 12:01 Sulfa (Sulfonamide Allergy Mild Unknown Verified 11/27/23 12:01 Antibiotics) buspirone Allergy Unknown Verified 11/27/23 12:01 cephalexin monohydrate * Allergy Hives Verified 11/27/23 12:01 [From [employer]] - Social History Does the pt smoke?: Yes Smoking Status: Current every day smoker Does the pt drink ETOH?: Yes Does the pt have substance abuse?: No - Immunizations Immunizations are current?: Yes - POLST Patient has POLST: No PD ED PE NORMAL - Vitals Vital signs reviewed: Yes - General General: Alert and oriented X 3 - HEENT HEENT: Atraumatic - Neck Neck: Supple, no meningeal sign - Cardiac Cardiac: RRR, No murmur, No gallop, No rub - Respiratory Respiratory: No respiratory distress, Clear bilaterally - Abdomen Abdomen: Normal bowel sounds, Soft, Non tender, Non distended - Neuro Neuro: Alert and oriented X 3 - Psych Psych: Normal mood, Normal affect, Other (Patient has normal judgment and thought process here in the emergency department she does appear slightly anxious with small tremor noted in fingers. She is able to answer questions otherwise and appears in no significant distress.) Results - Vitals Vitals: Oxygen O2 Source Room air PD Medical Decision Making - ED course Complexity details: reviewed old records, reviewed results ED course: Patient is a 28-year-old female presenting to the emergency department with symptoms of anxiety tremor dizziness lightheadedness and intermittent body tensing. Patient notes symptoms have been going on since yesterday afternoon after she was unable to take her evening and morning dose today of clonazepam. She has been taking this for 8 years. She ran out of refills and ran out of the medication yesterday morning. She has been trying to get a hold of her LINEN TECH up in [place] but has been unable to get in contact with them. She notes her symptoms of increased anxiety tremors body tensing have been going on since then. She denies being . She has never had any side effects from taking these medications. She notes that she has had refill issues only 1 or 2 times since she has been on this medication for the past 8 years. Discussed with patient after reviewing her PDMP that she is complaint with this medication and her last refill was on 11/07/23 and she has been taking this medication appropriately as it is scheduled every 12 hours as needed for anxiety. Patient notes her anxiety has been increased and she has been requiring it twice a day more recently.Patient instructed to return with any new or worsening symptoms. She was given a dose here and instructed to follow-up with her PCP for refill of this medication. Departure - Departure Disposition: 01 Home, Self Care Clinical Impression: Medication refill, Anxiety Condition: Good Instructions: ED Stress React Comments: You are seen here in the emergency department for your symptoms of anxiety tremors tenseness. Your workup here showed symptoms most likely secondary to clonazepam withdrawal. I refilled your prescription but only gave you a short course please take as prescribed and return to the emergency department with any new or worsening symptoms.
[2023-11-27 12:12] VITALS: BP 145/72; O2SAT 100
[2023-11-27] MEDS: clonazePAM 0.5 MG TABLET PO STA (12:14)
== END 2023-11-27 12:30 | disposition home or self-care (01) ==
LOC: ED 11:40
DX: Z76.0 Encounter for issue of repeat prescription (principal); F41.9 Anxiety disorder, unspecified; F17.200 Nicotine dependence, unspecified, uncomplicated; Z79.899 Other long term (current) drug therapy
CPT/HCPCS: 99283; A9270

== ENCOUNTER 2023-12-08 09:45 | Emergency (ER) | payer MEDICAID ==
--- NOTE | 2023-12-08 10:01 | ED Physician Documentation ---
PD HPI UPPER EXT INJURY - Stated complaint Stated Complaint: RT ARM PX - Chief complaint Chief Complaint: Trauma Ext - History obtained from History obtained from: Patient - History of Present Illness Location: Right, Forearm, Wrist Type of injury: Fall Timing - onset: Last night Worsened by: Moving, Palpating Associated symptoms: Numbness, Swelling. 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 HEENT: Other Psych: Depression, Anxiety Musculoskeletal: None - Past Surgical History Past Surgical History: Yes General: Other HEENT: Other - Present Medications Home Medications: Ambulatory Orders Medication Instructions Recorded Confirmed Meloxicam [Mobic] 7.5 mg PO BID 10 Days #20 tablet 12/08/23 Oxycodone HCl/Acetaminophen 1 each PO Q6H PRN #20 tablet 12/08/23 [Percocet 5-325 mg Tablet] clonazePAM [Clonazepam] 0.5 mg PO BID 12/08/23 12/08/23 - Allergies Allergies/Adverse Reactions: Allergies Allergy/AdvReac Type Severity Reaction Status Date / Time Penicillins Allergy Mild Unknown Verified 12/08/23 09:59 Sulfa (Sulfonamide Allergy Mild Unknown Verified 12/08/23 09:59 Antibiotics) acetaminophen [From Vicodin] Allergy Itching Verified 12/08/23 10:19 buspirone Allergy Unknown Verified 12/08/23 09:59 cephalexin monohydrate * Allergy Hives Verified 12/08/23 09:59 [From Keflex] hydrocodone [From Vicodin] Allergy Itching Verified 12/08/23 10:19 - Social History Does the pt smoke?: Yes Smoking Status: Current every day smoker Does the pt drink ETOH?: Yes Does the pt have substance abuse?: No - Immunizations Immunizations are current?: Yes - POLST Patient has POLST: No PD ED PE NORMAL - Vitals Vital signs reviewed: Yes - General General: Alert and oriented X 3, Well developed/nourished, Other (appears in pain due to wrist. ) - HEENT HEENT: Atraumatic - Neck Neck: Supple, no meningeal sign, No bony TTP - Derm Derm: Normal color, Warm and dry - Extremities Extremities: Other (tenderness over dorsum wrist without defromity. Tender at antecubital area of elbow. Pain at elbow with supination/pronation. Mild elbow effusion noed. ) - Neuro Neuro: Alert and oriented X 3, No motor deficit, No sensory deficit Results - Vitals Vitals: Oxygen O2 Source Room air - Rads (name of study) right forearm Relevant Findings:: Prelim report reviewed, EMP independent interpretation of test (suspicious for radial head fX.) PD Medical Decision Making - ED course Complexity details: considered differential (THE XRAY APPEARS NORMAL FOR WRIST COMPONENT. hAS radial head fracture visible. ), d/w patient Departure - Departure Disposition: Home, Self Care Clinical Impression: Fall from slip, trip, or stumble, Radial head fracture, closed Condition: Stable Record reviewed to determine appropriate education?: Yes Instructions: ED Fx Radial Head Follow-Up: SIMRAN RIVAS CNM [Primary Care Provider] - [facility] [Provider Group] Prescriptions: Meloxicam [Mobic] 7.5 mg PO BID 10 Days #20 tablet Oxycodone HCl/Acetaminophen [Percocet 5-325 mg Tablet] 1 each PO Q6H PRN #20 tablet PRN Reason: pain Comments: You have a minimally displaced fracture of the radial head on x-ray. This will hurt the most in the first few days due to the acute injury and inflammation and commonly a little bit of bleeding in the joint. This should taper down reasonably moderate over a few days but then still be moderate for a week to week and a half as the initial bone healing and sticking together takes place. During this time slight motion is actually good to help the positioning of the bone pieces. What that means is these are commonly treated with just a sling and not necessarily a cast but you do not need to start any exercises or range of motion intentionally until otherwise advised. Follow-up with orthopedics in about 1 to 1-1/2 weeks, call Sunday for an appointment. Meanwhile just minimal movement and use and immobilization with a sling. Anti-inflammatories such as meloxicam twice daily for the next 10 days. To that add Tylenol 500 to 650 mg 4 times daily and then oxycodone/acetaminophen on top if needed for worse pain. This would presumably be needed mostly the first few days. This will take however about 4 to 6 weeks for good healing to the point of in creased or full range of motion. Progress guidance of use based on the orthopedic advice and follow-up. I sent your prescriptions to [facility] I am prescribing a short course of narcotic pain medication for you. These are potentially dangerous and addictive medications that should be used carefully. These medications may constipate you. Take an [id number]-[id number] stool softener such as docusate twice daily with plenty of water while taking these medications. If you go 24 hours without a bowel movement, take [id number] MiraLAX, per package instructions. Do not drink or drive while taking these medications. If you received narcotic or sedating medications while in the emergency department do not drive for 24 hours. Store this medication in a safe, secure place and out of reach of children. It is a violation of federal law to give or sell this medication to another person or to use in a manner other than prescribed. The ED will not refill narcotic prescriptions, including prescriptions lost or stolen. You can dispose of unwanted medications at the [facility]'s office or at several pharmacies such as [facility]. Forms: PCP List Discharge Date/Time: 12/08/23 11:31
[2023-12-08] MEDS: HYDROcod/ACETAM 5/325 MG TABLET PO STA (10:20)
[2023-12-08] MEDS: oxyCODONE 5 MG TABLET PO STA (10:33)
[2023-12-08] MEDS: IBUPROFEN 600 MG TABLET PO STA (10:34)
--- NOTE | 2023-12-08 10:42 | XRAY Report ---
PROCEDURE: Forearm RT INDICATIONS: fall to right arm last night TECHNIQUE: 2 views of the forearm were acquired. COMPARISON: None. FINDINGS: Bones: No overt fractures or dislocations. There is an area of cortical irregularity at the radial on the lateral view with subtle lucency of the radial neck on the AP view. No suspicious bony lesions . Soft tissues: No suspicious soft tissue calcifications or masses. IMPRESSION: Findings suspicious for radial neck fracture. Recommend dedicated elbow radiographs. Reviewed by: Venus Mcmullen MD on 12/08/2023 9:40 AM ANDREA Approved by: Venus Mcmullen MD on 12/08/2023 9:40 AM ANDREA Station ID: [id number]
[2023-12-08 11:36] VITALS: BP 134/84; O2SAT 97
== END 2023-12-08 11:31 | disposition home or self-care (01) ==
LOC: ED 09:45
DX: S52.121A Displaced fracture of head of right radius, initial encounter for closed fracture (principal); W01.0XXA Fall on same level from slipping, tripping and stumbling without subsequent striking against object, initial encounter; F17.200 Nicotine dependence, unspecified, uncomplicated
CPT/HCPCS: 73090; 99283; 99284; A9270

== ENCOUNTER 2023-12-20 08:00 | Outpatient (CLI) | payer MEDICAID ==
--- NOTE | 2023-12-20 16:56 | XRAY Report ---
PROCEDURE: Elbow 1-2V RT INDICATIONS: PAIN IN RIGHT ELBOW TECHNIQUE: 3 views of the elbow were acquired. COMPARISON: Forearm radiograph dated 12/08/2023. FINDINGS: Bones: Again noted is minimally displaced radial neck fracture with fracture line possibly extending to radial head at its articulation with capitellum. No new fracture or dislocation. No suspicious victor hugo [place] lesions. Soft tissues: Small to moderate effusion. No suspicious soft tissue calcifications or masses. IMPRESSION: Stable appearance of minimally impacted and possible interarticular fracture of right radial head and neck. Small to moderate joint effusion. No new fracture or dislocation. Reviewed by: Hamzah Bass MD on 12/20/2023 4:55 PM PDT Approved by: Hamzah Bass MD on 12/20/2023 4:55 PM PDT Station ID: [id number]
== END 2023-12-20 23:59 | disposition home or self-care (01) ==
LOC: DI.WOS 08:00
PROVIDERS: ATTEND Orthopaedic Surgery
DX: S52.121A Displaced fracture of head of right radius, initial encounter for closed fracture (principal); M25.421 Effusion, right elbow